=== PATIENT | female | born 1965 | race Hispanic/Latino ===

== ENCOUNTER 2017-01-12 19:19 | Emergency (ER) | payer MEDICAID ==
[2017-01-12 20:20] VITALS: BP 126/82
--- NOTE | 2017-01-12 21:22 | Emergency Department Report ---
Chief Complaint: Dizziness Stated Complaint: POSS SINUS INFECTION /VERTIGO Time Seen by Provider: 01/12/17 21:17 - HPI History of Present Illness: Patient admits to having sinus pressure, she also admits to having vertigo and a headache. She is now seeing dbl vision and having pressure in right ear. Denies chest pain, sob. Patient admits to having vertigo in the past. - ROS Review of Systems: All other systems unremarkable except documentation in HPI - Exam Vital Signs: Vital Signs 01/12/17 20:12 Temperature 98.1 F Pulse Rate 88 Respiratory 18 Rate Blood Pressure 126/82 O2 Sat by Pulse 98 Oximetry Physical Exam: General: Female well-developed and nourished, no apparent distress noted, patient is a well tear at time of exam she states due to vertigo Cardiovascular: Heart sounds present S1-S2, no murmur, gallop, edema or ectopy noted, 2+ pulses upper and lower extremities Respiratory: Chest symmetry with respirations, lungs clear to auscultate upper and lower lobes, respirations even and unlabored, no rales, rhonchi, crackles noted. Neuro: Alert and oriented 3, fluid speech, EOMs intact, normal facial sensation , strength exam 3/5 right upper and lower extremities patient states due to old CVA, left strength 5/5 upper and lower extremity, GCS equals 15. Psych: AxOx3, answers questions appropriately, mood full range, affect normal, normal speech and tone. MSE screening note: Focused history and physical exam performed. Due to findings the following was ordered: seen by provider, laboratory studies ordered, and to go to main ED to be seen by physician ED Medical Decision Making - Medical Decision Making seen by provider, laboratory studies ordered, and to go to main ED to be seen by physician ED Disposition for MSE Condition: Stable Referrals: PRIMARY CARE, [Primary Care Provider] - 3-5 Days
[2017-01-12 21:54] LABS: Basophils % (Auto) 0.7 % (0.0-1.8); Eosinophils % (Auto) 8.7 % (0.0-4.3); Mean Corpuscular HGB Conc 30 % (30-34); Platelet Count 305 K/mm3 (140-440); Red Blood Count 5.19 M/mm3 (3.65-5.03); Red Cell Distribution Width 17.9 % (13.2-15.2); White Blood Count 8.5 K/mm3 (4.5-11.0)
[2017-01-12 22:11] LABS: Anion Gap 19 mmol/L; BUN/Creatinine Ratio 21.25; Blood Urea Nitrogen 17 mg/dL (7-17); Calcium 8.6 mg/dL (8.4-10.2); Carbon Dioxide 24 mmol/L (22-30); Chloride 97.7 mmol/L (98-107); Glucose 110 mg/dL (65-100); Potassium 3.8 mmol/L (3.6-5.0); Sodium 137 mmol/L (137-145)
[2017-01-12 22:16] LABS: Hematocrit 32.8 % (30.3-42.9); Hemoglobin 9.9 gm/dl (10.1-14.3); Mean Corpuscular Hemoglobin 19 pg (28-32); Mean Corpuscular Volume 63 fl (79-97)
--- NOTE | 2017-01-14 14:59 | ED Elopement Review ---
ED Pt Elopement review - Results review Lab results: Laboratory Tests 01/12/17 01/12/17 21:44 21:44 WBC 8.5 RBC 5.19 H Hgb 9.9 L Hct 32.8 MCV 63 L MCH 19 L MCHC 30 RDW 17.9 H Plt Count 305 Lymph % (Auto) 33.1 [place] % (Auto) 9.1 H Eos % (Auto) 8.7 H Baso % (Auto) 0.7 Lymph # 2.8 [place] # 0.8 Eos # 0.7 H Baso # 0.1 Seg Neutrophils % 48.4 Seg Neutrophils # 4.1 Sodium 137 Potassium 3.8 Chloride 97.7 L Carbon Dioxide 24 Anion Gap 19 BUN 17 Creatinine 0.8 Estimated GFR > 60 BUN/Creatinine Ratio 21.25 Glucose 110 H Calcium 8.6 - Call Back decision Pt Call Back Decision: No action required
== END 2017-01-12 21:50 | disposition left against medical advice (07) ==
LOC: ED 19:19
DX: J34.89 Other specified disorders of nose and nasal sinuses (principal); R42 Dizziness and giddiness; R51 Headache; Z53.21 Procedure and treatment not carried out due to patient leaving prior to being seen by health care provider
CPT/HCPCS: 36415; 80048; 85025

== ENCOUNTER 2017-01-26 19:32 | Emergency (ER) | payer MEDICAID ==
--- NOTE | 2017-01-26 20:09 | Emergency Department Report ---
Chief Complaint: Abdominal Pain Stated Complaint: STOMACH/RIB/BACK PAIN Time Seen by Provider: 01/26/17 20:04 - HPI History of Present Illness: PT c/o stomach pain that radiates into her rectum x 2 days. PT states the pain also radiates to her back. PT states she had to have surgery on her colon twice. PT states this pain feels similar to the pain she had before she needed surgery. - ROS Review of Systems: + chills + nausea -fever - vomiting - Exam Vital Signs: Vital Signs 01/26/17 19:41 Temperature 97.8 F Pulse Rate 100 H Respiratory 20 Rate Blood Pressure 120/87 [Right] O2 Sat by Pulse 100 Oximetry Physical Exam: PT looks well, non toxic. PT's abd soft, + LUQ and LLQ tenderness MSE screening note: Focused history and physical exam performed. Due to findings the following was ordered: labs ED Disposition for MSE Condition: Stable Instructions: Abdominal Pain (ED)
[2017-01-26 20:59] LABS: Alanine Aminotransferase 13 units/L (7-56); Albumin 3.9 g/dL (3.9-5); Alkaline Phosphatase 113 units/L (35-129); Anion Gap 20 mmol/L; BUN/Creatinine Ratio 18.75; Bilirubin,Total 0.2 mg/dL (0.1-1.2); Blood Urea Nitrogen 15 mg/dL (7-17); Calcium 8.8 mg/dL (8.4-10.2); Carbon Dioxide 24 mmol/L (22-30); Glucose 126 mg/dL (65-100); Lipase 30 units/L (13-60); Sodium 141 mmol/L (137-145)
[2017-01-26 21:02] LABS: Basophils % (Auto) 0.6 % (0.0-1.8); Hematocrit 31.9 % (30.3-42.9); Mean Corpuscular HGB Conc 31 % (30-34); Platelet Count 394 K/mm3 (140-440); Red Blood Count 5.07 M/mm3 (3.65-5.03); Red Cell Distribution Width 17.6 % (13.2-15.2); White Blood Count 13.2 K/mm3 (4.5-11.0)
[2017-01-26 21:08] LABS: Mean Corpuscular Volume 63 fl (79-97)
[2017-01-26 21:09] LABS: Mean Corpuscular Hemoglobin 20 pg (28-32)
[2017-01-26 22:00] LABS: Bacteria,Urine 1+ /HPF (Negative); Bilirubin,Urine NEG (Negative); Blood,Urine NEG (Negative); Ketones,Urine TR mg/dL (Negative); Leukocyte Esterase,Urine NEG (Negative); Mucus,Urine 3+ /HPF; Nitrite,Urine NEG (Negative); Protein,Urine <15 mg/dL mg/dL (Negative)
[2017-01-26] MEDS ORDERED: NACL ONE (23:27)
[2017-01-26] MEDS ORDERED: LIDOCAINE VISCOUS 2% PO ONE (23:32)
[2017-01-26] MEDS ORDERED: ALUM-MAG HYDROX-SIMETH 200-200-20MG/5ML PO ONE (23:32)
--- NOTE | 2017-01-27 00:46 | Emergency Department Report ---
ED Abdominal Pain HPI - General Chief Complaint: Abdominal Pain Stated Complaint: STOMACH/RIB/BACK PAIN Time Seen by Provider: 01/26/17 20:04 Source: patient Mode of arrival: Ambulatory Limitations: No Limitations - History of Present Illness Initial Comments: 51-year-old female with a past medical history of chronic GERD, peptic ulcer disease, seizures, previous colon resection, hysterectomy, and appendectomy, diabetes, CVA, and hypertension presents to the hospital complaints of abdominal pain. The left upper quadrant intermittent 3 weeks. She states it is a grabbing sensation that is severe for about 1 minute and then radiates down to her left mid and lower abdomen. During the severe pain episodes she has shortness of breath, diaphoresis, and nausea. Pain worse with palpation. No change with by mouth intake. No alleviating factors reported. Patient states she thought the pain was secondary to gas but came in because it is not getting better. She's been compliant with a PPI. She does state she has a known history of some beer GERD and surgery was recommended but she declined. No reports of hematemesis, fever, melena, or hematochezia. He does not currently have a GI doctor. Severity scale (0 -10): 3 - Related Data Home Medications Medication Instructions Recorded Confirmed Last Taken PARoxetine [Paxil] 20 mg PO DAILY 04/08/16 04/08/16 Unknown Previous Rx's Medication Instructions Recorded Last Taken Type Omeprazole [PriLOSEC] 40 mg PO QDAY #30 capsule. 12/09/15 12/28/15 09:00 Rx Benzonatate [Tessalon Perles] 100 mg PO Q8HR #20 capsule 04/08/16 Unknown Rx Ibuprofen [Motrin] 800 mg PO Q8HR PRN #14 tablet 04/08/16 Unknown Rx Benzonatate [Tessalon Perles] 100 mg PO Q8HR PRN #30 capsule 04/14/16 Unknown Rx Albuterol Sulfate [Proair 90 mcg IH Q4HR PRN #2 aer.pow.ba 06/24/16 Unknown Rx Respiclick] Azithromycin [Zithromax] 250 mg PO QAM #1 packet 06/24/16 Unknown Rx Phenylephrine/Dm/Acetaminop/GG 20 ml PO Q4HR #180 ml 06/24/16 Unknown Rx [Mucinex Dksp-Awj-Drsykslcch Lq] predniSONE [Deltasone] 50 mg PO QDAY #5 tab 06/24/16 Unknown Rx Azithromycin [Zithromax TAB] 500 mg PO QDAY #5 tablet 09/04/16 Unknown Rx traMADol [Ultram] 50 mg PO Q6HR PRN #20 tablet 09/04/16 Unknown Rx Albuterol Sulfate [Ventolin HFA] 2 puff IH Q4H PRN #1 hfa.aer.ad 01/27/17 Unknown Rx Allergies Allergy/AdvReac Type Severity Reaction Status Date / Time codeine Allergy Rash Verified 12/29/15 08:44 levofloxacin [From Levaquin] Allergy Hives Verified 12/29/15 08:44 Penicillins Allergy Rash Verified 12/29/15 08:44 phenytoin sodium Allergy Rash Verified 12/29/15 08:44 [From Dilantin] phenytoin sodium extended Allergy Rash Verified 12/29/15 08:44 [From Dilantin] Sulfa (Sulfonamide Allergy Rash Verified 12/29/15 08:44 Antibiotics) ED Review of Systems ROS: Stated complaint: STOMACH/RIB/BACK PAIN Other details as noted in HPI Comment: All other systems reviewed and negative Other: Constitutional: No fevers chills Eyes: No eye pain visual changes ENT: No ear pain or throat pain Neck: Denies pain Respiratory: Denies cough wheezing shortness of breath Cardiovascular: Denies chest pain, palpitations, syncope GI: As per HPI : Denies dysuria Musculoskeletal: Denies back pain Skin: Denies rash, lesions, erythema Neurologic: Denies headache, numbness, weakness Psychiatric: Denies suicidal ideation, hallucinations ED Past Medical Hx - Past Medical History Previous Medical History?: Yes Hx Hypertension: Yes Hx CVA: Yes Hx Diabetes: Yes Hx GERD: Yes Hx Seizures: Yes Hx Psychiatric Treatment: Yes (depression) Hx Asthma: No Hx COPD: No Additional medical history: ulcers. vertigo - Surgical History Past Surgical History?: Yes Hx Appendectomy: Yes Additional Surgical History: colon resection. hysterectomy - Social History Smoking Status: Never Smoker Substance Use Type: None - Medications Home Medications: Home Medications Medication Instructions Recorded Confirmed Last Taken Type Omeprazole [PriLOSEC] 40 mg PO QDAY #30 capsule. 12/09/15 04/08/16 12/28/15 09 :00 Rx Benzonatate [Tessalon Perles] 100 mg PO Q8HR #20 capsule 04/08/16 Unknown Rx Ibuprofen [Motrin] 800 mg PO Q8HR PRN #14 tablet 04/08/16 Unknown Rx PARoxetine [Paxil] 20 mg PO DAILY 04/08/16 04/08/16 Unknown History Benzonatate [Tessalon Perles] 100 mg PO Q8HR PRN #30 capsule 04/14/16 Unknown Rx Albuterol Sulfate [Proair 90 mcg IH Q4HR PRN #2 aer.pow.ba 06/24/16 Unknown Rx Respiclick] Azithromycin [Zithromax] 250 mg PO QAM #1 packet 06/24/16 Unknown Rx Phenylephrine/Dm/Acetaminop/GG 20 ml PO Q4HR #180 ml 06/24/16 Unknown Rx [Mucinex Fjnq-Lif-Delnrxtohi Lq] predniSONE [Deltasone] 50 mg PO QDAY #5 tab 06/24/16 Unknown Rx Azithromycin [Zithromax TAB] 500 mg PO QDAY #5 tablet 09/04/16 Unknown Rx traMADol [Ultram] 50 mg PO Q6HR PRN #20 tablet 09/04/16 Unknown Rx Albuterol Sulfate [Ventolin HFA] 2 puff IH Q4H PRN #1 hfa.aer.ad 01/27/17 Unknown Rx ED Physical Exam - General Limitations: No Limitations - Other Other exam information: General: No limitations, patient is alert in no acute distress Head exam: Atraumatic, normocephalic Eyes exam: Normal appearance ENT: Moist mucous membrane, normal oropharynx Neck exam: Normal inspection, full range of motion, no meningismus nontender Respiratory exam: Clear to auscultation bilateral, no wheezes, rales, crackles Cardiovascular: Normal rate and rhythm, normal heart sounds Abdomen: Soft, nondistended, left upper quadrant tenderness with normal bowel sounds, no rebound, or guarding Extremity: Full range of motion normal inspection no deformity or tenderness or edema Back: Normal Inspection, full range of motion, no tenderness Neurologic: Alert, oriented x3, cranial nerves intact, no motor or sensory deficit Psychiatric: normal affect, normal mood Skin: Warm, dry, intact ED Course Vital Signs 01/26/17 19:41 Temperature 97.8 F Pulse Rate 100 H Respiratory 20 Rate Blood Pressure 120/87 [Right] O2 Sat by Pulse 100 Oximetry - Reevaluation(s) Reevaluation #1: 01/27/17 00:49 Patient declined all pain medications states she does not want to take any pain medication. She was offered Tylenol in a GI cocktail as well 01/27/17 00:49 ED Medical Decision Making - Lab Data Result diagrams: 01/26/17 20:28 01/26/17 20:28 Lab Results 01/26/17 01/26/17 01/26/17 Range/Units 20:28 20:28 20:28 WBC 13.2 H (4.5-11.0) K/mm3 RBC 5.07 H (3.65-5.03) M/mm3 Hgb 10.0 L (10.1-14.3) gm/dl Hct 31.9 (30.3-42.9) % MCV 63 L (79-97) fl MCH 20 L (28-32) pg MCHC 31 (30-34) % RDW 17.6 H (13.2-15.2) % Plt Count 394 (140-440) K/mm3 Lymph % (Auto) 22.5 (13.4-35.0) % [place] % (Auto) 6.8 (0.0-7.3) % Eos % (Auto) 2.0 (0.0-4.3) % Baso % (Auto) 0.6 (0.0-1.8) % Lymph # 3.0 (1.2-5.4) K/mm3 [place] # 0.9 H (0.0-0.8) K/mm3 Eos # 0.3 (0.0-0.4) K/mm3 Baso # 0.1 (0.0-0.1) K/mm3 Seg Neutrophils % 68.1 (40.0-70.0) % Seg Neutrophils # 9.0 H (1.8-7.7) K/mm3 Sodium 141 (137-145) mmol/L Potassium 4.0 (3.6-5.0) mmol/L Chloride 101.0 (98-107) mmol/L Carbon Dioxide 24 (22-30) mmol/L Anion Gap 20 mmol/L BUN 15 (7-17) mg/dL Creatinine 0.8 (0.7-1.2) mg/dL Estimated GFR > 60 ml/min BUN/Creatinine Ratio 18.75 % Glucose 126 H (65-100) mg/dL Calcium 8.8 (8.4-10.2) mg/dL Total Bilirubin 0.2 (0.1-1.2) mg/dL AST 15 (5-40) units/L ALT 13 (7-56) units/L Alkaline Phosphatase 113 (35-129) units/L Total Protein 8.0 (6.3-8.2) g/dL Albumin 3.9 (3.9-5) g/dL Albumin/Globulin Ratio 1.0 % Lipase 30 (13-60) units/L HCG, Qual Negative (Negative) Urine Color (Yellow) Urine Turbidity (Clear) Urine pH (5.0-7.0) Ur Specific [place] (1.003-1.030) Urine Protein (Negative) mg/dL Urine Glucose (UA) (Negative) mg/dL Urine Ketones (Negative) mg/dL Urine Blood (Negative) Urine Nitrite (Negative) Urine Bilirubin (Negative) Urine Urobilinogen (<2.0) mg/dL Ur Leukocyte Esterase (Negative) Urine WBC (Auto) (0.0-6.0) /HPF Urine RBC (Auto) (0.0-6.0) /HPF U Epithel Cells (Auto) (0-13.0) /HPF Urine Bacteria (Auto) (Negative) /HPF Urine Mucus /HPF / Range/Units 21:05 WBC (4.5-11.0) K/mm3 RBC (3.65-5.03) M/mm3 Hgb (10.1-14.3) gm/dl Hct (30.3-42.9) % MCV (79-97) fl MCH (28-32) pg MCHC (30-34) % RDW (13.2-15.2) % Plt Count (140-440) K/mm3 Lymph % (Auto) (13.4-35.0) % [place] % (Auto) (0.0-7.3) % Eos % (Auto) (0.0-4.3) % Baso % (Auto) (0.0-1.8) % Lymph # (1.2-5.4) K/mm3 [place] # (0.0-0.8) K/mm3 Eos # (0.0-0.4) K/mm3 Baso # (0.0-0.1) K/mm3 Seg Neutrophils % (40.0-70.0) % Seg Neutrophils # (1.8-7.7) K/mm3 Sodium (137-145) mmol/L Potassium (3.6-5.0) mmol/L Chloride (98-107) mmol/L Carbon Dioxide (22-30) mmol/L Anion Gap mmol/L BUN (7-17) mg/dL Creatinine (0.7-1.2) mg/dL Estimated GFR ml/min BUN/Creatinine Ratio % Glucose (65-100) mg/dL Calcium (8.4-10.2) mg/dL Total Bilirubin (0.1-1.2) mg/dL AST (5-40) units/L ALT (7-56) units/L Alkaline Phosphatase (35-129) units/L Total Protein (6.3-8.2) g/dL Albumin (3.9-5) g/dL Albumin/Globulin Ratio % Lipase (13-60) units/L HCG, Qual (Negative) Urine Color Yellow (Yellow) Urine Turbidity Clear (Clear) Urine pH 5.0 (5.0-7.0) Ur Specific [place] 1.028 (1.003-1.030) Urine Protein <15 mg/dl (Negative) mg/dL Urine Glucose (UA) Neg (Negative) mg/dL Urine Ketones Tr (Negative) mg/dL Urine Blood Neg (Negative) Urine Nitrite Neg (Negative) Urine Bilirubin Neg (Negative) Urine Urobilinogen 2.0 (<2.0) mg/dL Ur Leukocyte Esterase Neg (Negative) Urine WBC (Auto) 1.0 (0.0-6.0) /HPF Urine RBC (Auto) 3.0 (0.0-6.0) /HPF U Epithel Cells (Auto) 2.0 (0-13.0) /HPF Urine Bacteria (Auto) 1+ (Negative) /HPF Urine Mucus 3+ /HPF - Radiology Data Radiology results: report reviewed CT abd pelvis IV contrast: No acute findings. - Medical Decision Making Patient was discharged home. No acute medical condition at thsis time. Symptoms appear to be chronic ongoing. GI referral will be provided. Albuterol inhaler will be refilled per patient request patient declines any meds for pain she is already taking a PPI. - Differential Diagnosis gastritis, PUD, [place], GERD, esophageal spasm Critical Care Time: No Critical care attestation.: If time is entered above; I have spent that time in minutes in the direct care of this critically ill patient, excluding procedure time. ED Disposition Clinical Impression: LUQ abdominal pain, GERD (gastroesophageal reflux disease) Disposition: DISCHARGED TO HOME OR SELFCARE Is pt being admited?: No Does the pt Need Aspirin: No Condition: Stable Instructions: Abdominal Pain (ED), Gastroesophageal Reflux Disease (ED) Additional Instructions: Continue your current medication. Follow up with a GI doctor provided. Return if symptoms worsen. Prescriptions: Albuterol Sulfate [Ventolin HFA] 2 puff IH Q4H PRN #1 hfa.aer.ad PRN Reason: Shortness Of Breath Referrals: PRIMARY CAREMD [Primary Care Provider] - 3-5 Days IWONA JULES MD [Staff Physician] - 3-5 Days Time of Disposition: 01:53
[2017-01-27] MEDS ORDERED: TYLENOL PO ONE (00:59)
--- NOTE | 2017-01-27 01:47 | Cat Scan Report ---
FINAL REPORT PROCEDURE: CT ABDOMEN PELVIS W CON TECHNIQUE: Computerized axial tomography of the abdomen and pelvis was performed after the IV injection of iodinated nonionic contrast. Oral contrast was not given. HISTORY: Abdominal pain. COMPARISON: Prior abdomen and pelvic CT scan of December 08, 2015 FINDINGS: Visualized lower thorax: There is mild atelectasis and or fibrotic change in both lung bases.. Liver: Normal size and attenuation. Spleen: Normal size and attenuation. Gallbladder and biliary system: Normal. Pancreas: Normal. Adrenals: Normal. Kidneys: Normal. GI tract: Bowel appears unremarkable when considering lack of oral contrast. However the appendix cannot be identified with certainty.. Lymph nodes and mesentery: Normal. Vasculature: Normal. Bladder: Normal. Reproductive organs: There has been a hysterectomy.. Peritoneum: No free fluid. Musculoskeletal structures: No significant abnormality. Other: None. IMPRESSION: 1. There is no CT evidence of distinct acute finding. 2. However the appendix cannot be identified with certainty. There is no CT evidence of inflammation in the right lower quadrant. However because the appendix cannot be identified, if there is strong clinical evidence to suggest appendicitis then this diagnosis should still be considered.
[2017-01-27 01:58] VITALS: BP 133/75
== END 2017-01-27 01:58 | disposition home or self-care (01) ==
LOC: ED 19:32
DX: R10.12 Left upper quadrant pain (principal); K21.9 Gastro-esophageal reflux disease without esophagitis; K27.9 Peptic ulcer, site unspecified, unspecified as acute or chronic, without hemorrhage or perforation; R56.9 Unspecified convulsions; E11.9 Type 2 diabetes mellitus without complications; I10 Essential (primary) hypertension; Z86.73 Personal history of transient ischemic attack (TIA), and cerebral infarction without residual deficits; Z90.49 Acquired absence of other specified parts of digestive tract; Z88.0 Allergy status to penicillin; Z88.2 Allergy status to sulfonamides; Z88.8 Allergy status to other drugs, medicaments and biological substances; Z88.1 Allergy status to other antibiotic agents; Z90.710 Acquired absence of both cervix and uterus
CPT/HCPCS: 36415; 74177; 80053; 81001; 83690; 84703; 85025; 93005; 93010; 99284; Q9967

== ENCOUNTER 2017-07-13 18:07 | Emergency (ER) | payer MEDICAID ==
[2017-07-13 18:51] LABS: Basophils % (Auto) 0.5 % (0.0-1.8); Hematocrit 32.1 % (30.3-42.9); Hemoglobin 9.9 gm/dl (10.1-14.3); Mean Corpuscular HGB Conc 31 % (30-34); Platelet Count 360 K/mm3 (140-440); Red Blood Count 5.12 M/mm3 (3.65-5.03); White Blood Count 13.3 K/mm3 (4.5-11.0)
[2017-07-13 18:55] LABS: Mean Corpuscular Hemoglobin 19 pg (28-32); Mean Corpuscular Volume 63 fl (79-97)
[2017-07-13 19:00] LABS: Bacteria,Urine 1+ /HPF (Negative); Bilirubin,Urine NEG (Negative); Blood,Urine NEG (Negative); Ketones,Urine NEG (Negative); Leukocyte Esterase,Urine TR (Negative); Mucus,Urine 2+ /HPF; Nitrite,Urine NEG (Negative); Protein,Urine <15 mg/dL mg/dL (Negative); Urobilinogen,Urine < 2.0 mg/dL (<2.0)
[2017-07-13 19:20] LABS: Alanine Aminotransferase 10 units/L (7-56); Albumin 4.2 g/dL (3.9-5); Albumin/Globulin Ratio 1.1 %; Alkaline Phosphatase 108 units/L (35-129); Anion Gap 19 mmol/L; Blood Urea Nitrogen 18 mg/dL (7-17); Calcium 8.8 mg/dL (8.4-10.2); Carbon Dioxide 25 mmol/L (22-30); Chloride 102.8 mmol/L (98-107); Glucose 97 mg/dL (65-100); Lipase 29 units/L (13-60); Potassium 4.3 mmol/L (3.6-5.0); Sodium 142 mmol/L (137-145)
[2017-07-14] MEDS ORDERED: TESSALON PERLES PO ONE (02:41)
--- NOTE | 2017-07-14 02:46 | Emergency Department Report ---
HPI - General Chief Complaint: Abdominal Pain Time Seen by Provider: 07/14/17 02:27 - HPI HPI: Room 4 The patient is a 52-year-old female presenting with a chief complaint of cough. The patient states she came to the emergency department because she suffered from a cough for the past 2 days productive of yellowish-green sputum. The patient states the cough causes her to be nauseous. The patient states she also noticed hesitancy when urinating. The patient says yesterday she was attacked by a stray cat and she was either bitten or scratched her right upper extremity. Patient denies any history of fever Location: [see above] Duration: [see above] Quality: Cough Severity: Moderate Modifying factors: [see above] Context: [see above] Mode of transportation: Unknown ED Past Medical Hx - Past Medical History Previous Medical History?: Yes Hx Hypertension: Yes Hx CVA: Yes Hx Diabetes: Yes Hx GERD: Yes Hx Seizures: Yes Hx Psychiatric Treatment: Yes (depression) Additional medical history: h/o ulcers. vertigo - Surgical History Past Surgical History?: Yes Hx Appendectomy: Yes Additional Surgical History: colon resection. hysterectomy - Family History Family history: no significant - Social History Smoking Status: Current Some Day Smoker Substance Use Type: Prescribed - Medications Home Medications: Home Medications Medication Instructions Recorded Confirmed Last Taken Type Omeprazole [PriLOSEC] 40 mg PO QDAY #30 capsule. 12/09/15 04/08/16 12/28/15 09 :00 Rx Benzonatate [Tessalon Perles] 100 mg PO Q8HR #20 capsule 04/08/16 Unknown Rx Ibuprofen [Motrin] 800 mg PO Q8HR PRN #14 tablet 04/08/16 Unknown Rx PARoxetine [Paxil] 20 mg PO DAILY 04/08/16 04/08/16 Unknown History Benzonatate [Tessalon Perles] 100 mg PO Q8HR PRN #30 capsule 04/14/16 Unknown Rx Albuterol Sulfate [Proair 90 mcg IH Q4HR PRN #2 aer.pow.ba 06/24/16 Unknown Rx Respiclick] Azithromycin [Zithromax] 250 mg PO QAM #1 packet 06/24/16 Unknown Rx Phenylephrine/Dm/Acetaminop/GG 20 ml PO Q4HR #180 ml 06/24/16 Unknown Rx [Mucinex Krav-Ydg-Pcjqwvajto Lq] predniSONE [Deltasone] 50 mg PO QDAY #5 tab 06/24/16 Unknown Rx Azithromycin [Zithromax TAB] 500 mg PO QDAY #5 tablet 09/04/16 Unknown Rx traMADol [Ultram] 50 mg PO Q6HR PRN #20 tablet 09/04/16 Unknown Rx Albuterol Sulfate [Ventolin HFA] 2 puff IH Q4H PRN #1 hfa.aer.ad 01/27/17 Unknown Rx ALBUTEROL Inhaler [Proair] 2 puff IH QID PRN #1 inhalation 07/14/17 Unknown Rx Azithromycin [Zithromax Z-FREDDY] 0 mg PO DAILY #6 tab 07/14/17 Unknown Rx Benzonatate [Tessalon Perles] 100 mg PO Q8HR PRN #30 capsule 07/14/17 Unknown Rx ED Review of Systems ROS: Stated complaint: ABD PAIN/HEADACHE/SCRATCHES RT ARM Other details as noted in HPI Comment: All other systems reviewed and negative Constitutional: denies: chills, fever Eyes: denies: eye pain, eye discharge, vision change ENT: denies: ear pain, throat pain Respiratory: cough Cardiovascular: denies: chest pain, palpitations Endocrine: no symptoms reported Gastrointestinal: denies: abdominal pain, nausea, diarrhea Genitourinary: other (hesitancy) Musculoskeletal: denies: back pain, joint swelling, arthralgia Skin: denies: rash, lesions Neurological: denies: headache, weakness, paresthesias Psychiatric: denies: anxiety, depression Hematological/Lymphatic: denies: easy bleeding, easy bruising Physical Exam - Physical Exam Vital Signs: Vital Signs 07/13/17 07/14/17 18:18 00:03 Temperature 97.6 F 98.6 F Pulse Rate 96 H 76 Respiratory 18 18 Rate Blood Pressure 123/96 136/99 O2 Sat by Pulse 99 98 Oximetry Physical Exam: GENERAL: The patient is well-developed well-nourished female lying on stretcher not appearing to be in acute distress. [] HEENT: Normocephalic. Atraumatic. Extraocular motions are intact. Patient has moist mucous membranes. NECK: Supple. Trachea midline CHEST/LUNGS: Clear to auscultation. There is no respiratory distress noted. Occasional cough HEART/CARDIOVASCULAR: Regular. There is no tachycardia. There is no gallop rub or murmur. ABDOMEN: Abdomen is soft, nontender. Patient has normal bowel sounds. There is no abdominal distention. SKIN: There is evidence of subacute scratches to the right anterior forearm and wrist. There is a scab present over the lesions. Pale erythema over the wrist injury. There is no lymphangitic streaking. There is no diaphoresis. NEURO: The patient is awake, alert, and oriented. The patient is cooperative. The patient has normal speech MUSCULOSKELETAL: There is no evidence of acute injury. ED Course Vital Signs 07/13/17 07/14/17 18:18 00:03 Temperature 97.6 F 98.6 F Pulse Rate 96 H 76 Respiratory 18 18 Rate Blood Pressure 123/96 136/99 O2 Sat by Pulse 99 98 Oximetry ED Medical Decision Making - Lab Data Result diagrams: 07/13/17 18:30 07/13/17 18:30 Laboratory Tests 07/13/17 07/13/17 07/13/17 18:30 18:30 Unknown WBC 13.3 H RBC 5.12 H Hgb 9.9 L Hct 32.1 MCV 63 L MCH 19 L MCHC 31 RDW 18.0 H Plt Count 360 Lymph % (Auto) 23.8 [place] % (Auto) 7.8 H Eos % (Auto) 1.0 Baso % (Auto) 0.5 Lymph # 3.2 [place] # 1.0 H Eos # 0.1 Baso # 0.1 Seg Neutrophils % 66.9 Seg Neutrophils # 8.9 H Sodium 142 Potassium 4.3 Chloride 102.8 Carbon Dioxide 25 Anion Gap 19 BUN 18 H Creatinine 0.8 Estimated GFR > 60 BUN/Creatinine Ratio 22.50 Glucose 97 Calcium 8.8 Total Bilirubin 0.20 AST 15 ALT 10 Alkaline Phosphatase 108 Total Protein 8.0 Albumin 4.2 Albumin/Globulin Ratio 1.1 Lipase 29 Urine Color Yellow Urine Turbidity Clear Urine pH 5.0 Ur Specific [place] 1.027 Urine Protein <15 mg/dl Urine Glucose (UA) Neg Urine Ketones Neg Urine Blood Neg Urine Nitrite Neg Urine Bilirubin Neg Urine Urobilinogen < 2.0 Ur Leukocyte Esterase Tr Urine WBC (Auto) 2.0 Urine RBC (Auto) 5.0 U Epithel Cells (Auto) 1.0 Urine Bacteria (Auto) 1+ Urine Mucus 2+ - Radiology Data Radiology results: image reviewed (chest x-ray) interpreted by me: Chest x-ray-no focal infiltrates, no pneumothorax - Differential Diagnosis bronchitis, pneumonia, cat Scratch disease, UTI Critical care attestation.: If time is entered above; I have spent that time in minutes in the direct care of this critically ill patient, excluding procedure time. ED Disposition Clinical Impression: Acute bronchitis, Cat scratch Disposition: DC-01 TO HOME OR SELFCARE Is pt being admited?: No Does the pt Need Aspirin: No Condition: Stable Instructions: Acute Bronchitis (ED), Cat Scratch Disease (ED), Abdominal Pain ( ED) Additional Instructions: Return to the emergency department immediately should you develop worsening symptoms, fever, inability to tolerate food or liquid or any other concerns. Prescriptions: ALBUTEROL Inhaler [Proair] 2 puff IH QID PRN #1 inhalation PRN Reason: Shortness Of Breath Azithromycin [Zithromax Z-FREDDY] 0 mg PO DAILY #6 tab Benzonatate [Tessalon Perles] 100 mg PO Q8HR PRN #30 capsule PRN Reason: Cough Referrals: PRIMARY CAREMD [Primary Care Provider] - 3-5 Days ALEX ROTHMAN MD [Staff Physician] - 3-5 Days Time of Disposition: 03:15
[2017-07-14 03:27] VITALS: BP 138/83
--- NOTE | 2017-07-14 07:37 | XRay Report ---
CHEST 2 VIEWS INDICATION: Cough. COMPARISON: 06/24/2016. FINDINGS: PA and lateral chest radiographs demonstrate normal cardiomediastinal silhouette. Clear lungs. Demineralized bones with mild thoracic spine degenerative spurring. EKG leads. CONCLUSION: No acute disease in the chest. Thank you for the opportunity to participate in this patient's care.
== END 2017-07-14 03:27 | disposition home or self-care (01) ==
LOC: ED 18:07
DX: J20.9 Acute bronchitis, unspecified (principal); S40.811A Abrasion of right upper arm, initial encounter; I10 Essential (primary) hypertension; E11.9 Type 2 diabetes mellitus without complications; K21.9 Gastro-esophageal reflux disease without esophagitis; F17.200 Nicotine dependence, unspecified, uncomplicated; W55.03XA Scratched by cat, initial encounter; Y93.9 Activity, unspecified; Y92.9 Unspecified place or not applicable; Y99.9 Unspecified external cause status
CPT/HCPCS: 36415; 71020; 80053; 81001; 83690; 85025

== ENCOUNTER 2017-10-13 19:53 | Emergency (ER) | payer MEDICAID ==
--- NOTE | 2017-10-13 22:16 | Cat Scan Report ---
FINAL REPORT PROCEDURE: CT HEAD/BRAIN WO CON TECHNIQUE: Computerized tomography of the head was performed without contrast material. HISTORY: head injury, LOC, facial numbness COMPARISON: No prior studies are available for comparison. FINDINGS: Brain: Brain density appears normal. No evidence of intracranial hemorrhage. No parenchymal hemorrhage, mass lesions or mass effect are seen. No abnormal extraxial fluid collects or masses are seen. Ventricles: Ventricles are normal size and are midline. Bone Windows: No evidence of skull fracture. Paranasal sinuses: Small nodular density measuring 7.6 millimeter seen anteriorly in the right maxillary sinus suggesting a small polyp or mucous retention cyst. There is minimal mucosal thickening anteriorly in the left maxillary sinus. Paranasal sinuses otherwise appear clear. Mastoid air cells: Clear IMPRESSION: Negative unenhanced CT scan of the brain. No evidence of intracranial hemorrhage or skull fracture. Minimal paranasal sinus disease as described.
[2017-10-13 23:39] LABS: Bilirubin,Urine NEG (Negative); Blood,Urine NEG (Negative); Ketones,Urine TR mg/dL (Negative); Leukocyte Esterase,Urine NEG (Negative); Mucus,Urine 2+ /HPF; Nitrite,Urine NEG (Negative); Protein,Urine <15 mg/dL mg/dL (Negative); Urobilinogen,Urine < 2.0 mg/dL (<2.0)
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
[2017-10-14 06:43] VITALS: BP 131/78
== END 2017-10-14 00:23 | disposition home or self-care (01) ==
LOC: ED 19:53
DX: S06.0X1A Concussion with loss of consciousness of 30 minutes or less, initial encounter (principal); R30.0 Dysuria; I10 Essential (primary) hypertension; E11.9 Type 2 diabetes mellitus without complications; K21.9 Gastro-esophageal reflux disease without esophagitis; W22.8XXA Striking against or struck by other objects, initial encounter; Y93.89 Activity, other specified; Y92.89 Other specified places as the place of occurrence of the external cause; Y99.8 Other external cause status
CPT/HCPCS: 70450; 81001

== ENCOUNTER 2018-03-05 14:44 | Emergency (ER) | payer MEDICAID ==
[2018-03-05] MEDS ORDERED: DELTASONE PO ONE (15:59)
--- NOTE | 2018-03-05 16:01 | Emergency Department Report ---
Minor Respiratory - HPI Chief Complaint: Upper Respiratory Infection Stated Complaint: COUGH Time Seen by Provider: 03/05/18 15:38 Pain Location: Facial Severity: moderate Minor Respiratory: Yes Able to Tolerate Fluids, Yes Cough, No Rhinorrhea, No Sore Throat, No Ear Pain, No Sick Contacts, No Hemoptysis, No Chest Pain, No Shortness of Breath, No Fever Other History: This 2-year-old female presents ED complaining of worsening cough for the past week. Patient states her mother is a smoker in the house and is like this is making her cough forcefully patient states cough is nonproductive with yellowish sputum. She denies fever, chills, vomiting, chest pain ,nausea or shortness of breath. States that sometimes night she mild shortness of breath ED Review of Systems ROS: Stated complaint: COUGH Other details as noted in HPI Constitutional: denies: chills, fever Eyes: denies: eye pain, eye discharge, vision change ENT: denies: ear pain, throat pain Respiratory: cough. denies: shortness of breath, wheezing Cardiovascular: denies: chest pain, palpitations Endocrine: no symptoms reported Gastrointestinal: denies: abdominal pain, nausea, diarrhea Genitourinary: denies: urgency, dysuria, discharge Musculoskeletal: denies: back pain, joint swelling, arthralgia Skin: denies: rash, lesions Neurological: denies: headache, weakness, paresthesias Psychiatric: denies: anxiety, depression Hematological/Lymphatic: denies: easy bleeding, easy bruising ED Past Medical Hx - Past Medical History Hx Hypertension: Yes Hx CVA: Yes Hx Diabetes: Yes Hx GERD: Yes Hx Seizures: Yes Hx Psychiatric Treatment: Yes (depression) Hx Asthma: No Hx COPD: No Additional medical history: h/o ulcers. vertigo - Surgical History Hx Appendectomy: Yes Additional Surgical History: colon resection. hysterectomy - Social History Smoking Status: Former Smoker Substance Use Type: None - Medications Home Medications: Home Medications Medication Instructions Recorded Confirmed Last Taken Type Omeprazole [PriLOSEC] 40 mg PO QDAY #30 capsule. 12/09/15 04/08/16 12/28/15 09 :00 Rx Benzonatate [Tessalon Perles] 100 mg PO Q8HR #20 capsule 04/08/16 Unknown Rx Ibuprofen [Motrin] 800 mg PO Q8HR PRN #14 tablet 04/08/16 Unknown Rx PARoxetine [Paxil] 20 mg PO DAILY 04/08/16 04/08/16 Unknown History Benzonatate [Tessalon Perles] 100 mg PO Q8HR PRN #30 capsule 04/14/16 Unknown Rx Albuterol Sulfate [Proair 90 mcg IH Q4HR PRN #2 aer.pow.ba 06/24/16 Unknown Rx Respiclick] Phenylephrine/Dm/Acetaminop/GG 20 ml PO Q4HR #180 ml 06/24/16 Unknown Rx [Mucinex Xksv-Vge-Irbwylhorh Lq] predniSONE [Deltasone] 50 mg PO QDAY #5 tab 06/24/16 Unknown Rx Azithromycin [Zithromax TAB] 500 mg PO QDAY #5 tablet 09/04/16 Unknown Rx traMADol [Ultram] 50 mg PO Q6HR PRN #20 tablet 09/04/16 Unknown Rx ALBUTEROL Inhaler [Proair] 2 puff IH QID PRN #1 inhalation 07/14/17 Unknown Rx Azithromycin [Zithromax Z-FREDDY] 0 mg PO DAILY #6 tab 07/14/17 Unknown Rx Fluconazole [Diflucan TAB] 150 mg PO ONCE #1 tablet 07/14/17 Unknown Rx Albuterol Sulfate [Ventolin HFA] 2 puff IH Q4H PRN #1 hfa.aer.ad 03/05/18 Unknown Rx Azithromycin [Zithromax Z-FREDDY] 250 mg PO QAM #1 packet 03/05/18 Unknown Rx Benzonatate [Tessalon Perles] 100 mg PO Q8HR PRN #30 capsule 03/05/18 Unknown Rx diphenhydrAMINE [Benadryl CAP] 25 mg PO QHS PRN #24 capsule 03/05/18 Unknown Rx Minor Respiratory Exam - Exam General: Vital signs noted. No distress. Alert and acting appropriately. HEENT: Yes Moist Mucous Membranes, No Pharyngeal Erythema, No Pharyngeal Exudates, No Rhinorrhea, No Conjuctival Injection, No Frontal Tenderness, No Maxillary Tenderness Ear: Neither TM Bulge, Neither TM Erythema, Neither EAC Pain, Neither EAC Discharge Neck: Yes Supple, No Adenopathy Lungs: Yes Good Air Exchange, No Wheezes, No Ronchi, No Stridor, No Cough, No Labored Respirations, No Retractions, No Use of Accessory Muscles, No Other Abnormal Lung Sounds Heart: Yes Regular, No Murmur Abdomen: Yes Normal Bowel Sounds, No Tenderness, No Peritoneal Signs Skin: No Rash, No Edema Neurologic: Alert and oriented, no deficits. Musculoskeletal: Unremarkable. ED Course Vital Signs 03/05/18 14:53 Temperature 98.2 F Pulse Rate 100 H Respiratory 18 Rate Blood Pressure 140/98 O2 Sat by Pulse 96 Oximetry ED Medical Decision Making - Radiology Data Radiology results: report reviewed, image reviewed FINAL REPORT EXAM: XR CHEST ROUTINE 2V HISTORY: cough/cp TECHNIQUE: PA and lateral views the chest were submitted. Comparison made study of 12/08/2015. FINDINGS: The heart size and mediastinum appear normal. The lungs are clear. Pleural fluid is not seen. The bones soft tissues reveal mild disc degeneration in the dorsal spine. IMPRESSION: No active chest disease. Transcribed By: RB Dictated By: LULU VARGAS MD Electronically Authenticated By: LULU VARGAS MD Signed Date/Time: 03/05/18 5549 - Medical Decision Making 52-year-old female presents with upper respiratory infection ED course: Patient received medication in the ED, x-ray. Chest x-ray shows no acute findings Discussed this with the patient. I discussed the patient will follow up with the primary care physician in 3-5 days vital signs are normal patient is in no respiratory distress. Critical care attestation.: If time is entered above; I have spent that time in minutes in the direct care of this critically ill patient, excluding procedure time. ED Disposition Clinical Impression: URI with cough and congestion Disposition: DC-01 TO HOME OR SELFCARE Is pt being admited?: No Does the pt Need Aspirin: No Condition: Stable Instructions: Upper Respiratory Infection (ED), Viral Syndrome (ED), Sinusitis (ED) Additional Instructions: Make sure to follow up with the primary care physician as discussed. Take all your medications as you've been prescribed. If you have any worsening symptoms or develop new symptoms please return to ED immediately. Prescriptions: diphenhydrAMINE [Benadryl CAP] 25 mg PO QHS PRN #24 capsule PRN Reason: Allergic Reaction Albuterol Sulfate [Ventolin HFA] 2 puff IH Q4H PRN #1 hfa.aer.ad PRN Reason: Shortness Of Breath Azithromycin [Zithromax Z-FREDDY] 250 mg PO QAM #1 packet Benzonatate [Tessalon Perles] 100 mg PO Q8HR PRN #30 capsule PRN Reason: Cough Referrals: PRIMARY CARE, [Primary Care Provider] - 3-5 Days [facility] [Outside] - 3-5 Days [facility] [Outside] - 3-5 Days [facility] [Outside] - 3-5 Days Forms: Accompanied Note, Work/School Release Form(ED) Time of Disposition: 17:12
--- NOTE | 2018-03-05 16:24 | XRay Report ---
FINAL REPORT EXAM: XR CHEST ROUTINE 2V HISTORY: cough/cp TECHNIQUE: PA and lateral views the chest were submitted. Comparison made study of 12/08/2015. FINDINGS: The heart size and mediastinum appear normal. The lungs are clear. Pleural fluid is not seen. The bones soft tissues reveal mild disc degeneration in the dorsal spine. IMPRESSION: No active chest disease.
[2018-03-05] MEDS ORDERED: ROBITUSSIN PO ONE (16:30)
[2018-03-05 17:39] VITALS: BP 135/74
== END 2018-03-05 17:37 | disposition home or self-care (01) ==
LOC: ED 14:44
DX: J06.9 Acute upper respiratory infection, unspecified (principal); R05 Cough; R09.81 Nasal congestion; Z86.73 Personal history of transient ischemic attack (TIA), and cerebral infarction without residual deficits; E11.9 Type 2 diabetes mellitus without complications; K21.9 Gastro-esophageal reflux disease without esophagitis; R56.9 Unspecified convulsions; I10 Essential (primary) hypertension; F32.9 Major depressive disorder, single episode, unspecified; Z87.891 Personal history of nicotine dependence
CPT/HCPCS: 71046; 99283; J7512

== ENCOUNTER 2018-03-26 20:49 | Emergency (ER) | payer MEDICAID ==
[2018-03-26 20:55] VITALS: BP 142/101
--- NOTE | 2018-03-26 21:35 | Emergency Department Report ---
- General Chief Complaint: Upper Respiratory Infection Stated Complaint: COUGH Time Seen by Provider: 03/26/18 21:16 Source: patient Mode of arrival: Ambulatory Limitations: No Limitations - History of Present Illness Initial Comments: Was treated for similar symptoms last month. Given azithromycin. She requests albuterol solution. She has nebulizer machine at home.. She also has upper abdominal pain when she coughs. MD Complaint: cough, nasal congestion -: Gradual, week(s) (4) Severity: mild Consistency: constant Improves With: nothing Worsens With: nothing Context: other (patient lives with her mother who is a smoker.) - Related Data Home Medications Medication Instructions Recorded Confirmed Last Taken PARoxetine [Paxil] 20 mg PO DAILY 04/08/16 04/08/16 Unknown Previous Rx's Medication Instructions Recorded Last Taken Type Omeprazole [PriLOSEC] 40 mg PO QDAY #30 capsule. 12/09/15 12/28/15 09:00 Rx Benzonatate [Tessalon Perles] 100 mg PO Q8HR #20 capsule 04/08/16 Unknown Rx Ibuprofen [Motrin] 800 mg PO Q8HR PRN #14 tablet 04/08/16 Unknown Rx Benzonatate [Tessalon Perles] 100 mg PO Q8HR PRN #30 capsule 04/14/16 Unknown Rx Albuterol Sulfate [Proair 90 mcg IH Q4HR PRN #2 aer.pow.ba 06/24/16 Unknown Rx Respiclick] Phenylephrine/Dm/Acetaminop/GG 20 ml PO Q4HR #180 ml 06/24/16 Unknown Rx [Mucinex Hbkw-Qcy-Mjcfnntbna Lq] predniSONE [Deltasone] 50 mg PO QDAY #5 tab 06/24/16 Unknown Rx Azithromycin [Zithromax TAB] 500 mg PO QDAY #5 tablet 09/04/16 Unknown Rx traMADol [Ultram] 50 mg PO Q6HR PRN #20 tablet 09/04/16 Unknown Rx ALBUTEROL Inhaler [Proair] 2 puff IH QID PRN #1 inhalation 07/14/17 Unknown Rx Azithromycin [Zithromax Z-FREDDY] 0 mg PO DAILY #6 tab 07/14/17 Unknown Rx Fluconazole [Diflucan TAB] 150 mg PO ONCE #1 tablet 07/14/17 Unknown Rx Albuterol Sulfate [Ventolin HFA] 2 puff IH Q4H PRN #1 hfa.aer.ad 03/05/18 Unknown Rx Azithromycin [Zithromax Z-FREDDY] 250 mg PO QAM #1 packet 03/05/18 Unknown Rx Benzonatate [Tessalon Perles] 100 mg PO Q8HR PRN #30 capsule 03/05/18 Unknown Rx diphenhydrAMINE [Benadryl CAP] 25 mg PO QHS PRN #24 capsule 03/05/18 Unknown Rx ALBUTEROL NEB's [Proventil 0.083% 2.5 mg IH TID PRN #90 neb 03/26/18 Unknown Rx NEBS] Loratadine 10 mg PO DAILY 30 Days #30 capsule 03/26/18 Unknown Rx predniSONE [Deltasone] 3 tab PO QDAY 5 Days #15 tab 03/26/18 Unknown Rx Allergies Allergy/AdvReac Type Severity Reaction Status Date / Time codeine Allergy Rash Verified 10/13/17 21:24 levofloxacin [From Levaquin] Allergy Hives Verified 10/13/17 21:24 Penicillins Allergy Rash Verified 10/13/17 21:24 phenytoin sodium Allergy Rash Verified 10/13/17 21:24 [From Dilantin] phenytoin sodium extended Allergy Rash Verified 10/13/17 21:24 [From Dilantin] Sulfa (Sulfonamide Allergy Rash Verified 10/13/17 21:24 Antibiotics) ED Review of Systems ROS: Stated complaint: COUGH Other details as noted in HPI Comment: All other systems reviewed and negative Constitutional: denies: fever, malaise Respiratory: cough Cardiovascular: denies: chest pain ED Past Medical Hx - Past Medical History Hx Hypertension: Yes Hx CVA: Yes Hx Diabetes: Yes Hx GERD: Yes Hx Seizures: Yes Hx Psychiatric Treatment: Yes (depression) Hx Asthma: No Hx COPD: No Additional medical history: h/o ulcers. vertigo - Surgical History Hx Appendectomy: Yes Additional Surgical History: colon resection. hysterectomy - Social History Smoking Status: Never Smoker Substance Use Type: None - Medications Home Medications: Home Medications Medication Instructions Recorded Confirmed Last Taken Type Omeprazole [PriLOSEC] 40 mg PO QDAY #30 capsule. 12/09/15 04/08/16 12/28/15 09 :00 Rx Benzonatate [Tessalon Perles] 100 mg PO Q8HR #20 capsule 04/08/16 Unknown Rx Ibuprofen [Motrin] 800 mg PO Q8HR PRN #14 tablet 04/08/16 Unknown Rx PARoxetine [Paxil] 20 mg PO DAILY 04/08/16 04/08/16 Unknown History Benzonatate [Tessalon Perles] 100 mg PO Q8HR PRN #30 capsule 04/14/16 Unknown Rx Albuterol Sulfate [Proair 90 mcg IH Q4HR PRN #2 aer.pow.ba 06/24/16 Unknown Rx Respiclick] Phenylephrine/Dm/Acetaminop/GG 20 ml PO Q4HR #180 ml 06/24/16 Unknown Rx [Mucinex Ofsb-Ifo-Dfcycktilx Lq] predniSONE [Deltasone] 50 mg PO QDAY #5 tab 06/24/16 Unknown Rx Azithromycin [Zithromax TAB] 500 mg PO QDAY #5 tablet 09/04/16 Unknown Rx traMADol [Ultram] 50 mg PO Q6HR PRN #20 tablet 09/04/16 Unknown Rx ALBUTEROL Inhaler [Proair] 2 puff IH QID PRN #1 inhalation 07/14/17 Unknown Rx Azithromycin [Zithromax Z-FREDDY] 0 mg PO DAILY #6 tab 07/14/17 Unknown Rx Fluconazole [Diflucan TAB] 150 mg PO ONCE #1 tablet 07/14/17 Unknown Rx Albuterol Sulfate [Ventolin HFA] 2 puff IH Q4H PRN #1 hfa.aer.ad 03/05/18 Unknown Rx Azithromycin [Zithromax Z-FREDDY] 250 mg PO QAM #1 packet 03/05/18 Unknown Rx Benzonatate [Tessalon Perles] 100 mg PO Q8HR PRN #30 capsule 03/05/18 Unknown Rx diphenhydrAMINE [Benadryl CAP] 25 mg PO QHS PRN #24 capsule 03/05/18 Unknown Rx ALBUTEROL NEB's [Proventil 0.083% 2.5 mg IH TID PRN #90 neb 03/26/18 Unknown Rx NEBS] Loratadine 10 mg PO DAILY 30 Days #30 capsule 03/26/18 Unknown Rx predniSONE [Deltasone] 3 tab PO QDAY 5 Days #15 tab 03/26/18 Unknown Rx ED Physical Exam - General Limitations: No Limitations General appearance: alert, in no apparent distress, other (pleasant well- appearing comfortable) - Head Head exam: Present: atraumatic, normocephalic - Eye Eye exam: Present: normal appearance - ENT ENT exam: Present: mucous membranes moist, other (mucus in the oropharynx without exudates) - Neck Neck exam: Present: normal inspection. Absent: tenderness, meningismus - Respiratory Respiratory exam: Present: normal lung sounds bilaterally. Absent: respiratory distress, wheezes, rales, rhonchi - Cardiovascular Cardiovascular Exam: Present: regular rate, normal rhythm, normal heart sounds. Absent: bradycardia, tachycardia, systolic murmur, diastolic murmur, rubs, gallop - GI/Abdominal GI/Abdominal exam: Present: soft, normal bowel sounds. Absent: distended, guarding, rebound - Extremities Exam Extremities exam: Present: normal inspection - Back Exam Back exam: Present: normal inspection - Neurological Exam Neurological exam: Present: alert, oriented X3 - Psychiatric Psychiatric exam: Present: normal affect, normal mood - Skin Skin exam: Present: warm, dry, intact, normal color. Absent: rash ED Course Vital Signs 03/26/18 20:48 Temperature 99.3 F Pulse Rate 101 H Respiratory 20 Rate Blood Pressure 142/101 O2 Sat by Pulse 97 Oximetry ED Medical Decision Making - Radiology Data Radiology results: image reviewed interpreted by me: PA and lateral chest radiographs two-view: No pneumothorax normal mediastinum normal cardiac silhouette no infiltrate - Medical Decision Making Ms. Childs presents with bronchitis with history of reactive airway disease requiring albuterol nebulizer therapy. Due to smoking secondhand smoke exposure, I prescribed prednisone and albuterol nebulizer solution. Also prescribed loratadine. No evidence of pneumonia on chest x-ray 2 view PA lateral Ms. Childs also has mild abdominal straining with coughing. No peritonitis. Critical care attestation.: If time is entered above; I have spent that time in minutes in the direct care of this critically ill patient, excluding procedure time. ED Disposition Clinical Impression: Acute bronchitis Disposition: TO HOME OR SELFCARE Is pt being admited?: No Does the pt Need Aspirin: No Condition: Stable Instructions: Acute Bronchitis (ED) Prescriptions: ALBUTEROL NEB's [Proventil 0.083% NEBS] 2.5 mg IH TID PRN #90 neb PRN Reason: Wheezing Loratadine 10 mg PO DAILY 30 Days #30 capsule predniSONE [Deltasone] 3 tab PO QDAY 5 Days #15 tab Referrals: LUKAS COPE MD [Primary Care Provider] - 3-5 Days Time of Disposition: 21:52
--- NOTE | 2018-03-26 22:13 | XRay Report ---
FINAL REPORT PROCEDURE: XR CHEST ROUTINE 2V TECHNIQUE: PA and lateral chest radiographs were obtained. CPT 56408 HISTORY: cough COMPARISON: No prior studies are available for comparison. FINDINGS: Heart: Normal. Mediastinum/Vessels: Normal. Lungs/Pleural space: Lungs are hyperinflated. There are no confluent infiltrates or mass lesions. Pleural spaces are clear.. Bony thorax: No acute osseous abnormality. Other: IMPRESSION: No acute pulmonary process COPD.
== END 2018-03-26 22:02 | disposition home or self-care (01) ==
LOC: ED 20:49
DX: J20.9 Acute bronchitis, unspecified (principal); I10 Essential (primary) hypertension; E11.9 Type 2 diabetes mellitus without complications; F32.9 Major depressive disorder, single episode, unspecified; Z90.49 Acquired absence of other specified parts of digestive tract; Z90.710 Acquired absence of both cervix and uterus; Z88.0 Allergy status to penicillin; Z88.1 Allergy status to other antibiotic agents; Z88.5 Allergy status to narcotic agent; Z88.8 Allergy status to other drugs, medicaments and biological substances
CPT/HCPCS: 71046

== ENCOUNTER 2018-04-20 17:54 | Emergency (ER) | payer MEDICAID ==
--- NOTE | 2018-04-20 19:11 | XRay Report ---
FINAL REPORT EXAM: XR WRIST 3+V RT HISTORY: right wrist injury/deformity status post fall on the floor today with pain over the lateral aspect of the wrist. Prior wrist injury 5 years ago. TECHNIQUE: AP, lateral, and oblique views of the right wrist PRIORS: None. FINDINGS: No evidence of acute fracture or dislocation is seen. The soft tissues demonstrate swelling along the palm but no evidence for radiopaque foreign bodies. Joint spaces are maintained. IMPRESSION: No acute bony abnormality identified. Soft tissue swelling along the palm.
[2018-04-20 22:33] VITALS: BP 101/66
--- NOTE | 2018-04-20 22:50 | Emergency Department Report ---
ED Fall HPI - General Chief Complaint: Fall Stated Complaint: RIGHT ARM INJURY Time Seen by Provider: 04/20/18 22:44 Source: patient Mode of arrival: Ambulatory - History of Present Illness Initial Comments: Patient is 53 years old female with past medical history of hypertension and diabetes. Patient presented to the ER for evaluation of right wrist pain that happened after she fell this evening while she was helping her mother. Patient stated that she slipped and fell and landed on right hand. Patient denied any other injury. She denied any head injury, neck injuries chest or abdomen or other extremity injuries. She denied any loss of consciousness or headache. No weakness numbness or tingling sensation. MD Complaint: fall - Related Data Home Medications Medication Instructions Recorded Confirmed Last Taken PARoxetine [Paxil] 20 mg PO DAILY 04/08/16 04/08/16 Unknown Previous Rx's Medication Instructions Recorded Last Taken Type Omeprazole [PriLOSEC] 40 mg PO QDAY #30 capsule. 12/09/15 12/28/15 09:00 Rx Benzonatate [Tessalon Perles] 100 mg PO Q8HR #20 capsule 04/08/16 Unknown Rx Ibuprofen [Motrin] 800 mg PO Q8HR PRN #14 tablet 04/08/16 Unknown Rx Benzonatate [Tessalon Perles] 100 mg PO Q8HR PRN #30 capsule 04/14/16 Unknown Rx Albuterol Sulfate [Proair 90 mcg IH Q4HR PRN #2 aer.pow.ba 06/24/16 Unknown Rx Respiclick] Phenylephrine/Dm/Acetaminop/GG 20 ml PO Q4HR #180 ml 06/24/16 Unknown Rx [Mucinex Dzpy-Sbd-Yfryshgkak Lq] predniSONE [Deltasone] 50 mg PO QDAY #5 tab 06/24/16 Unknown Rx Azithromycin [Zithromax TAB] 500 mg PO QDAY #5 tablet 09/04/16 Unknown Rx traMADol [Ultram] 50 mg PO Q6HR PRN #20 tablet 09/04/16 Unknown Rx ALBUTEROL Inhaler [Proair] 2 puff IH QID PRN #1 inhalation 07/14/17 Unknown Rx Azithromycin [Zithromax Z-FREDDY] 0 mg PO DAILY #6 tab 07/14/17 Unknown Rx Fluconazole [Diflucan TAB] 150 mg PO ONCE #1 tablet 07/14/17 Unknown Rx Albuterol Sulfate [Ventolin HFA] 2 puff IH Q4H PRN #1 hfa.aer.ad 03/05/18 Unknown Rx Azithromycin [Zithromax Z-FREDDY] 250 mg PO QAM #1 packet 03/05/18 Unknown Rx Benzonatate [Tessalon Perles] 100 mg PO Q8HR PRN #30 capsule 03/05/18 Unknown Rx diphenhydrAMINE [Benadryl CAP] 25 mg PO QHS PRN #24 capsule 03/05/18 Unknown Rx ALBUTEROL NEB's [Proventil 0.083% 2.5 mg IH TID PRN #90 neb 03/26/18 Unknown Rx NEBS] Loratadine 10 mg PO DAILY 30 Days #30 capsule 03/26/18 Unknown Rx predniSONE [Deltasone] 3 tab PO QDAY 5 Days #15 tab 03/26/18 Unknown Rx Allergies Allergy/AdvReac Type Severity Reaction Status Date / Time codeine Allergy Rash Verified 10/13/17 21:24 levofloxacin [From Levaquin] Allergy Hives Verified 10/13/17 21:24 Penicillins Allergy Rash Verified 10/13/17 21:24 phenytoin sodium Allergy Rash Verified 10/13/17 21:24 [From Dilantin] phenytoin sodium extended Allergy Rash Verified 10/13/17 21:24 [From Dilantin] Sulfa (Sulfonamide Allergy Rash Verified 10/13/17 21:24 Antibiotics) ED Review of Systems ROS: Stated complaint: RIGHT ARM INJURY Other details as noted in HPI Comment: All other systems reviewed and negative Constitutional: denies: chills, fever Respiratory: denies: orthopnea Cardiovascular: denies: chest pain, palpitations, dyspnea on exertion Gastrointestinal: denies: abdominal pain, nausea, vomiting, diarrhea, constipation, hematemesis, hematochezia Musculoskeletal: denies: back pain Neurological: denies: headache, weakness, numbness, paresthesias ED Past Medical Hx - Past Medical History Previous Medical History?: Yes Hx Hypertension: Yes Hx CVA: Yes Hx Diabetes: Yes Hx GERD: Yes Hx Seizures: Yes Hx Psychiatric Treatment: Yes (depression) Hx Asthma: No Hx COPD: No Additional medical history: h/o ulcers. vertigo - Surgical History Past Surgical History?: Yes Hx Appendectomy: Yes Additional Surgical History: colon resection. hysterectomy - Social History Smoking Status: Current Every Day Smoker Substance Use Type: Prescribed - Medications Home Medications: Home Medications Medication Instructions Recorded Confirmed Last Taken Type Omeprazole [PriLOSEC] 40 mg PO QDAY #30 capsule. 12/09/15 04/08/16 12/28/15 09 :00 Rx Benzonatate [Tessalon Perles] 100 mg PO Q8HR #20 capsule 04/08/16 Unknown Rx Ibuprofen [Motrin] 800 mg PO Q8HR PRN #14 tablet 04/08/16 Unknown Rx PARoxetine [Paxil] 20 mg PO DAILY 04/08/16 04/08/16 Unknown History Benzonatate [Tessalon Perles] 100 mg PO Q8HR PRN #30 capsule 04/14/16 Unknown Rx Albuterol Sulfate [Proair 90 mcg IH Q4HR PRN #2 aer.pow.ba 06/24/16 Unknown Rx Respiclick] Phenylephrine/Dm/Acetaminop/GG 20 ml PO Q4HR #180 ml 06/24/16 Unknown Rx [Mucinex Txij-Anj-Kvtflhuecm Lq] predniSONE [Deltasone] 50 mg PO QDAY #5 tab 06/24/16 Unknown Rx Azithromycin [Zithromax TAB] 500 mg PO QDAY #5 tablet 09/04/16 Unknown Rx traMADol [Ultram] 50 mg PO Q6HR PRN #20 tablet 09/04/16 Unknown Rx ALBUTEROL Inhaler [Proair] 2 puff IH QID PRN #1 inhalation 07/14/17 Unknown Rx Azithromycin [Zithromax Z-FREDDY] 0 mg PO DAILY #6 tab 07/14/17 Unknown Rx Fluconazole [Diflucan TAB] 150 mg PO ONCE #1 tablet 07/14/17 Unknown Rx Albuterol Sulfate [Ventolin HFA] 2 puff IH Q4H PRN #1 hfa.aer.ad 03/05/18 Unknown Rx Azithromycin [Zithromax Z-FREDDY] 250 mg PO QAM #1 packet 03/05/18 Unknown Rx Benzonatate [Tessalon Perles] 100 mg PO Q8HR PRN #30 capsule 03/05/18 Unknown Rx diphenhydrAMINE [Benadryl CAP] 25 mg PO QHS PRN #24 capsule 03/05/18 Unknown Rx ALBUTEROL NEB's [Proventil 0.083% 2.5 mg IH TID PRN #90 neb 03/26/18 Unknown Rx NEBS] Loratadine 10 mg PO DAILY 30 Days #30 capsule 03/26/18 Unknown Rx predniSONE [Deltasone] 3 tab PO QDAY 5 Days #15 tab 03/26/18 Unknown Rx ED Physical Exam - General Limitations: No Limitations General appearance: alert, in no apparent distress - Head Head exam: Present: atraumatic, normocephalic, normal inspection - Eye Eye exam: Present: normal appearance - ENT ENT exam: Present: normal exam, normal orophraynx, mucous membranes moist - Neck Neck exam: Present: normal inspection, full ROM. Absent: tenderness, meningismus, lymphadenopathy, thyromegaly - Respiratory Respiratory exam: Present: normal lung sounds bilaterally. Absent: respiratory distress, wheezes, rales, rhonchi, stridor, chest wall tenderness, accessory muscle use, decreased breath sounds, prolonged expiratory - Cardiovascular Cardiovascular Exam: Present: regular rate, normal rhythm, normal heart sounds - GI/Abdominal GI/Abdominal exam: Present: soft, normal bowel sounds. Absent: distended, tenderness, guarding, rebound, rigid, organomegaly, mass, bruit, pulsatile mass - Expanded Upper Extremity Exam Right Shoulder Exam: Present: normal inspection, full ROM. Absent: tenderness Upper Arm exam: Present: normal inspection, full ROM. Absent: tenderness Elbow exam: Present: normal inspection, full ROM Forearm Wrist exam: Present: normal inspection, full ROM, tenderness. Absent: swelling, abrasion, laceration, ecchymosis, deformity, dislocation Hand Wrist exam: Present: normal inspection, full ROM, tenderness. Absent: swelling, abrasion, deformity ED Course Vital Signs 04/20/18 04/20/18 18:00 22:22 Temperature 98.1 F 98.3 F Pulse Rate 72 94 H Respiratory 18 18 Rate Blood Pressure 131/95 101/66 O2 Sat by Pulse 97 97 Oximetry ED Medical Decision Making - Radiology Data Radiology results: report reviewed Referring Physician: ED DOC Patient Name: JEFF FLORES Date of : 1965 Sex: Female Report Date: 2018-04-20 Report Status: Finalized Findings [facility] [address] [place] [address] XRay Report Signed Patient: JEFF FLORES MR#: [id number] : 1965 Acct:[id number] Age/Sex: 53 / F ADM Date: 04/20/18 Loc: ED Attending Dr: Ordering Physician: CARLTON FLOWERS MD Date of Service: 04/20/18 Procedure(s): XR wrist 3+V RT Accession Number(s): [id number] cc: CARLTON FLOWERS MD Fluoro Time In Minutes: FINAL REPORT EXAM: XR WRIST 3+V RT HISTORY: right wrist injury/deformity status post fall on the floor today with pain over the lateral aspect of the wrist. Prior wrist injury 5 years ago. TECHNIQUE: AP, lateral, and oblique views of the right wrist PRIORS: None. FINDINGS: No evidence of acute fracture or dislocation is seen. The soft tissues demonstrate swelling along the palm but no evidence for radiopaque foreign bodies. Joint spaces are maintained. IMPRESSION: No acute bony abnormality identified. Soft tissue swelling along the palm. Transcribed By: [facility] Dictated By: PHONG SHAW MD Electronically Authenticated By: PHONG SHAW MD Signed Date/Time: 04/20/181906 DD/ 06 TD/TT: 04/20/181906 Critical care attestation.: If time is entered above; I have spent that time in minutes in the direct care of this critically ill patient, excluding procedure time. ED Disposition Clinical Impression: Right wrist sprain, Fall Disposition: DC-01 TO HOME OR SELFCARE Is pt being admited?: No Condition: Stable Instructions: Wrist Sprain (ED), Fall Prevention (ED) Referrals: PRIMARY CARE, [Primary Care Provider] - 3-5 Days
== END 2018-04-20 23:15 | disposition home or self-care (01) ==
LOC: ED 17:54
DX: S63.501A Unspecified sprain of right wrist, initial encounter (principal); I10 Essential (primary) hypertension; E11.9 Type 2 diabetes mellitus without complications; K21.9 Gastro-esophageal reflux disease without esophagitis; F17.200 Nicotine dependence, unspecified, uncomplicated; Z86.73 Personal history of transient ischemic attack (TIA), and cerebral infarction without residual deficits; Z88.6 Allergy status to analgesic agent; Z88.0 Allergy status to penicillin; Z88.2 Allergy status to sulfonamides; Z88.8 Allergy status to other drugs, medicaments and biological substances; W01.0XXA Fall on same level from slipping, tripping and stumbling without subsequent striking against object, initial encounter; Y93.89 Activity, other specified; Y92.89 Other specified places as the place of occurrence of the external cause; Y99.8 Other external cause status
CPT/HCPCS: 99283

== ENCOUNTER 2018-05-15 09:25 | Emergency (ER) | payer MEDICAID ==
[2018-05-15 09:42] VITALS: BP 136/92
[2018-05-15 10:17] LABS: Bilirubin,Urine NEG (Negative); Blood,Urine NEG (Negative); Color,Urine Amber (Yellow); Mucus,Urine 3+ /HPF; Protein,Urine <15 mg/dL mg/dL (Negative)
--- NOTE | 2018-05-15 10:30 | Emergency Department Report ---
ED Female HPI - General Chief complaint: Urogenital-Female Stated complaint: SIDE PAIN Time Seen by Provider: 05/15/18 10:16 Source: patient Mode of arrival: Ambulatory Limitations: No Limitations - History of Present Illness Initial comments: 53-year-old female with diabetes, CVA, hypertension, GERD, previous hysterectomy presents to the hospital complaints of left lower quadrant pain, dysuria, urinary urgency, and groin rash 3 days. Pain is diminishing, moderate , worse with movement and palpation. Patient denies fever, nausea, vomiting, or diarrhea. Patient also complains of right-sided throat pain and ear pain 1 day. Pt does have a PMD -: year(s) - Related Data Home Medications Medication Instructions Recorded Confirmed Last Taken PARoxetine [Paxil] 20 mg PO DAILY 04/08/16 04/08/16 Unknown Previous Rx's Medication Instructions Recorded Last Taken Type Omeprazole [PriLOSEC] 40 mg PO QDAY #30 capsule. 12/09/15 12/28/15 09:00 Rx Benzonatate [Tessalon Perles] 100 mg PO Q8HR #20 capsule 04/08/16 Unknown Rx Ibuprofen [Motrin] 800 mg PO Q8HR PRN #14 tablet 04/08/16 Unknown Rx Benzonatate [Tessalon Perles] 100 mg PO Q8HR PRN #30 capsule 04/14/16 Unknown Rx Albuterol Sulfate [Proair 90 mcg IH Q4HR PRN #2 aer.pow.ba 06/24/16 Unknown Rx Respiclick] Phenylephrine/Dm/Acetaminop/GG 20 ml PO Q4HR #180 ml 06/24/16 Unknown Rx [Mucinex Hgtb-Uwg-Pasumovryc Lq] predniSONE [Deltasone] 50 mg PO QDAY #5 tab 06/24/16 Unknown Rx Azithromycin [Zithromax TAB] 500 mg PO QDAY #5 tablet 09/04/16 Unknown Rx traMADol [Ultram] 50 mg PO Q6HR PRN #20 tablet 09/04/16 Unknown Rx ALBUTEROL Inhaler [Proair] 2 puff IH QID PRN #1 inhalation 07/14/17 Unknown Rx Azithromycin [Zithromax Z-FREDDY] 0 mg PO DAILY #6 tab 07/14/17 Unknown Rx Fluconazole [Diflucan TAB] 150 mg PO ONCE #1 tablet 07/14/17 Unknown Rx Albuterol Sulfate [Ventolin HFA] 2 puff IH Q4H PRN #1 hfa.aer.ad 03/05/18 Unknown Rx Azithromycin [Zithromax Z-FREDDY] 250 mg PO QAM #1 packet 03/05/18 Unknown Rx Benzonatate [Tessalon Perles] 100 mg PO Q8HR PRN #30 capsule 03/05/18 Unknown Rx diphenhydrAMINE [Benadryl CAP] 25 mg PO QHS PRN #24 capsule 03/05/18 Unknown Rx ALBUTEROL NEB's [Proventil 0.083% 2.5 mg IH TID PRN #90 neb 03/26/18 Unknown Rx NEBS] Loratadine 10 mg PO DAILY 30 Days #30 capsule 03/26/18 Unknown Rx predniSONE [Deltasone] 3 tab PO QDAY 5 Days #15 tab 03/26/18 Unknown Rx Naproxen [Naprosyn] 500 mg PO BID #14 tablet 04/20/18 Unknown Rx Clotrimazole 1% [Lotrimin 1%] 1 gm TP BID PRN #1 tube 05/15/18 Unknown Rx Fluconazole [Diflucan TAB] 150 mg PO ONCE #1 tablet 05/15/18 Unknown Rx Allergies Allergy/AdvReac Type Severity Reaction Status Date / Time codeine Allergy Rash Verified 10/13/17 21:24 levofloxacin [From Levaquin] Allergy Hives Verified 10/13/17 21:24 Penicillins Allergy Rash Verified 10/13/17 21:24 phenytoin sodium Allergy Rash Verified 10/13/17 21:24 [From Dilantin] phenytoin sodium extended Allergy Rash Verified 10/13/17 21:24 [From Dilantin] Sulfa (Sulfonamide Allergy Rash Verified 10/13/17 21:24 Antibiotics) ED Review of Systems ROS: Stated complaint: SIDE PAIN Other details as noted in HPI Comment: All other systems reviewed and negative ED Past Medical Hx - Past Medical History Hx Hypertension: Yes Hx CVA: Yes Hx Diabetes: Yes Hx GERD: Yes Hx Seizures: Yes Hx Psychiatric Treatment: Yes (depression) Hx Asthma: No Hx COPD: No Additional medical history: h/o ulcers. vertigo - Surgical History Hx Appendectomy: Yes Additional Surgical History: colon resection. hysterectomy - Social History Smoking Status: Current Every Day Smoker Substance Use Type: None - Medications Home Medications: Home Medications Medication Instructions Recorded Confirmed Last Taken Type Omeprazole [PriLOSEC] 40 mg PO QDAY #30 capsule. 12/09/15 04/08/16 12/28/15 09 :00 Rx Benzonatate [Tessalon Perles] 100 mg PO Q8HR #20 capsule 04/08/16 Unknown Rx Ibuprofen [Motrin] 800 mg PO Q8HR PRN #14 tablet 04/08/16 Unknown Rx PARoxetine [Paxil] 20 mg PO DAILY 04/08/16 04/08/16 Unknown History Benzonatate [Tessalon Perles] 100 mg PO Q8HR PRN #30 capsule 04/14/16 Unknown Rx Albuterol Sulfate [Proair 90 mcg IH Q4HR PRN #2 aer.pow.ba 06/24/16 Unknown Rx Respiclick] Phenylephrine/Dm/Acetaminop/GG 20 ml PO Q4HR #180 ml 06/24/16 Unknown Rx [Mucinex Vtaj-Dwh-Lfzplkzcfn Lq] predniSONE [Deltasone] 50 mg PO QDAY #5 tab 06/24/16 Unknown Rx Azithromycin [Zithromax TAB] 500 mg PO QDAY #5 tablet 09/04/16 Unknown Rx traMADol [Ultram] 50 mg PO Q6HR PRN #20 tablet 09/04/16 Unknown Rx ALBUTEROL Inhaler [Proair] 2 puff IH QID PRN #1 inhalation 07/14/17 Unknown Rx Azithromycin [Zithromax Z-FREDDY] 0 mg PO DAILY #6 tab 07/14/17 Unknown Rx Fluconazole [Diflucan TAB] 150 mg PO ONCE #1 tablet 07/14/17 Unknown Rx Albuterol Sulfate [Ventolin HFA] 2 puff IH Q4H PRN #1 hfa.aer.ad 03/05/18 Unknown Rx Azithromycin [Zithromax Z-FREDDY] 250 mg PO QAM #1 packet 03/05/18 Unknown Rx Benzonatate [Tessalon Perles] 100 mg PO Q8HR PRN #30 capsule 03/05/18 Unknown Rx diphenhydrAMINE [Benadryl CAP] 25 mg PO QHS PRN #24 capsule 03/05/18 Unknown Rx ALBUTEROL NEB's [Proventil 0.083% 2.5 mg IH TID PRN #90 neb 03/26/18 Unknown Rx NEBS] Loratadine 10 mg PO DAILY 30 Days #30 capsule 03/26/18 Unknown Rx predniSONE [Deltasone] 3 tab PO QDAY 5 Days #15 tab 03/26/18 Unknown Rx Naproxen [Naprosyn] 500 mg PO BID #14 tablet 04/20/18 Unknown Rx Clotrimazole 1% [Lotrimin 1%] 1 gm TP BID PRN #1 tube 05/15/18 Unknown Rx Fluconazole [Diflucan TAB] 150 mg PO ONCE #1 tablet 05/15/18 Unknown Rx ED Physical Exam - General Limitations: No Limitations - Other Other exam information: General: No limitations, patient is alert in no acute distress Head exam: Atraumatic, normocephalic Eyes exam: Normal appearance, pupils equal reactive to light, extraocular movements intact ENT: Moist mucous membrane, normal oropharynx no exudates, bilateral TMs without erythema and good light reflex Neck exam: Normal inspection, full range of motion, no meningismus nontender Respiratory exam: Clear to auscultation bilateral, no wheezes, rales, crackles Cardiovascular: Normal rate and rhythm, normal heart sounds Abdomen: Soft, nondistended, left lower quadrant and suprapubic tenderness, with normal bowel sounds, no rebound, or guarding : Patient declined vaginal exam Extremity: Full range of motion normal inspection no deformity Back: Normal Inspection, full range of motion, no tenderness Neurologic: Alert, oriented x3, cranial nerves intact, no motor or sensory deficit Psychiatric: normal affect, normal mood Skin: Patient declined skin exam ED Course Vital Signs 05/15/18 09:40 Temperature 97.6 F Pulse Rate 100 H Respiratory 16 Rate Blood Pressure 136/92 O2 Sat by Pulse 95 Oximetry - Reevaluation(s) Reevaluation #1: 05/15/18 10:43 HR now 86 ED Medical Decision Making - Lab Data Lab Results 05/15/18 Range/Units 09:47 Urine Color Richelle (Yellow) Urine Turbidity Clear (Clear) Urine pH 5.0 (5.0-7.0) Ur Specific [place] 1.029 (1.003-1.030) Urine Protein <15 mg/dl (Negative) mg/dL Urine Glucose (UA) Neg (Negative) mg/dL Urine Ketones Tr (Negative) mg/dL Urine Blood Neg (Negative) Urine Nitrite Neg (Negative) Urine Bilirubin Neg (Negative) Urine Urobilinogen 2.0 (<2.0) mg/dL Ur Leukocyte Esterase Neg (Negative) Urine WBC (Auto) 1.0 (0.0-6.0) /HPF Urine RBC (Auto) 3.0 (0.0-6.0) /HPF U Epithel Cells (Auto) < 1.0 (0-13.0) /HPF Urine Mucus 3+ /HPF - Medical Decision Making Patient stating she thinks she has a yeast infection and has urinary symptoms as well. UA negative for infection. She does have suprapubic and left lower quadrant tenderness. Denies fever. She declined vaginal exam to confirm these infection and requesting Diflucan and cream. She also will not let me examine her external vaginal or groin area for evaluation of rash. Patient informed to return if she develops fever or worsening symptoms. - Differential Diagnosis UTI, diverticulitis, vaginitis, tinea cruris Critical Care Time: No Critical care attestation.: If time is entered above; I have spent that time in minutes in the direct care of this critically ill patient, excluding procedure time. ED Disposition Clinical Impression: Yeast infection, Dysuria Disposition: DC-01 TO HOME OR SELFCARE Is pt being admited?: No Does the pt Need Aspirin: No Condition: Stable Instructions: Vulvovaginal Candidiasis (ED), Jock Itch (ED) Additional Instructions: Take the medication as prescribed. Return is symptoms worsen. You have declined vaginal exam at this time. You are being treated based on your symptoms but please return if you develop other symptoms as indicated by your discharge instructions such as fever or worsening pain as discussed. Prescriptions: Clotrimazole 1% [Lotrimin 1%] 1 gm TP BID PRN #1 tube PRN Reason: Rash Fluconazole [Diflucan TAB] 150 mg PO ONCE #1 tablet Referrals: PRIMARY CARE,MD [Primary Care Provider] - 3-5 Days Time of Disposition: 10:44
== END 2018-05-15 10:52 | disposition home or self-care (01) ==
LOC: ED 09:25
DX: B37.9 Candidiasis, unspecified (principal); R30.0 Dysuria; I10 Essential (primary) hypertension; E11.9 Type 2 diabetes mellitus without complications; Z86.73 Personal history of transient ischemic attack (TIA), and cerebral infarction without residual deficits; K21.9 Gastro-esophageal reflux disease without esophagitis; F17.200 Nicotine dependence, unspecified, uncomplicated; Z88.6 Allergy status to analgesic agent; Z88.1 Allergy status to other antibiotic agents; Z88.0 Allergy status to penicillin; Z88.2 Allergy status to sulfonamides; Z88.8 Allergy status to other drugs, medicaments and biological substances
CPT/HCPCS: 81001; 99283

== ENCOUNTER 2018-06-10 10:46 | Inpatient (IN) | payer MEDICAID ==
[2018-06-10 11:26] LABS: Basophils # (Auto) 0.1 K/mm3 (0.0-0.1); Basophils % (Auto) 0.6 % (0.0-1.8); Eosinophils # (Auto) 0.1 K/mm3 (0.0-0.4); Eosinophils % (Auto) 0.5 % (0.0-4.3); Hematocrit 33.1 % (30.3-42.9); Hemoglobin 10.2 gm/dl (10.1-14.3); Lymphocytes # (Auto) 1.8 K/mm3 (1.2-5.4); Lymphocytes % (Auto) 12.7 % (13.4-35.0); Mean Corpuscular HGB Conc 31 % (30-34); Monocytes # (Auto) 0.7 K/mm3 (0.0-0.8); Monocytes % (Auto) 5.1 % (0.0-7.3); Platelet Count 343 K/mm3 (140-440); Red Blood Count 5.24 M/mm3 (3.65-5.03); Red Cell Distribution Width 18.6 % (13.2-15.2)
[2018-06-10 11:37] LABS: INR 0.97 (0.87-1.13); Mean Corpuscular Hemoglobin 20 pg (28-32); Mean Corpuscular Volume 63 fl (79-97)
[2018-06-10 11:47] LABS: Alanine Aminotransferase 10 units/L (7-56); BUN/Creatinine Ratio 19; Blood Urea Nitrogen 17 mg/dL (7-17); Calcium 9.5 mg/dL (8.4-10.2); Hemolysis Index 3; Lipase 25 units/L (13-60)
--- NOTE | 2018-06-10 11:49 | Emergency Department Report ---
ED Abdominal Pain HPI - General Chief Complaint: Abdominal Pain Stated Complaint: ABD PAIN Time Seen by Provider: 06/10/18 11:46 Source: patient, EMS Mode of arrival: Stretcher Limitations: No Limitations - History of Present Illness Initial Comments: 53 y/o female who is a very poor hxian c/o abdominal pain. The patient is very reticent to answer questions or provide historical details. She states that it hurts worse in the right lower quadrant of her abdomen. She has had nausea. She doesn't refer krissy chills. She hasn't taken her temperature. She is largely unwilling or disinterested in answering questions and turns over onto her left lateral decubitus position. She states that she has had a bowel blockage in the past. She is status post a colon resection and prior hysterectomy. However review of her previous medical records does indicate that she had a normal CT on 01/26/2017. She has been in the emergency department over 20 times for ambulatory complaints. Apparently she has a history of COPD and schizoaffective disorder. She was admitted 2012 here for headache associated with altered mental status. MD Complaint: abdominal pain -: Gradual, unknown (patient is largely unrevealing willing to state how long she has had the abdominal pain my impression is less than 24 hours.) Location: diffuse, RLQ Radiation: none Severity: moderate Quality: other Consistency: constant Improves With: nothing Worsens With: nothing Associated Symptoms: nausea (possibly very poor historian) - Related Data Home Medications Medication Instructions Recorded Confirmed Last Taken PARoxetine [Paxil] 20 mg PO DAILY 04/08/16 04/08/16 Unknown Previous Rx's Medication Instructions Recorded Last Taken Type Omeprazole [PriLOSEC] 40 mg PO QDAY #30 capsule. 12/09/15 12/28/15 09:00 Rx Benzonatate [Tessalon Perles] 100 mg PO Q8HR #20 capsule 04/08/16 Unknown Rx Ibuprofen [Motrin] 800 mg PO Q8HR PRN #14 tablet 04/08/16 Unknown Rx Benzonatate [Tessalon Perles] 100 mg PO Q8HR PRN #30 capsule 04/14/16 Unknown Rx Albuterol Sulfate [Proair 90 mcg IH Q4HR PRN #2 aer.pow.ba 06/24/16 Unknown Rx Respiclick] Phenylephrine/Dm/Acetaminop/GG 20 ml PO Q4HR #180 ml 06/24/16 Unknown Rx [Mucinex Xaks-Yjm-Mlfniqulkf Lq] predniSONE [Deltasone] 50 mg PO QDAY #5 tab 06/24/16 Unknown Rx Azithromycin [Zithromax TAB] 500 mg PO QDAY #5 tablet 09/04/16 Unknown Rx traMADol [Ultram] 50 mg PO Q6HR PRN #20 tablet 09/04/16 Unknown Rx ALBUTEROL Inhaler [Proair] 2 puff IH QID PRN #1 inhalation 07/14/17 Unknown Rx Azithromycin [Zithromax Z-FREDDY] 0 mg PO DAILY #6 tab 07/14/17 Unknown Rx Fluconazole [Diflucan TAB] 150 mg PO ONCE #1 tablet 07/14/17 Unknown Rx Albuterol Sulfate [Ventolin HFA] 2 puff IH Q4H PRN #1 hfa.aer.ad 03/05/18 Unknown Rx Azithromycin [Zithromax Z-FREDDY] 250 mg PO QAM #1 packet 03/05/18 Unknown Rx Benzonatate [Tessalon Perles] 100 mg PO Q8HR PRN #30 capsule 03/05/18 Unknown Rx diphenhydrAMINE [Benadryl CAP] 25 mg PO QHS PRN #24 capsule 03/05/18 Unknown Rx ALBUTEROL NEB's [Proventil 0.083% 2.5 mg IH TID PRN #90 neb 03/26/18 Unknown Rx NEBS] Loratadine 10 mg PO DAILY 30 Days #30 capsule 03/26/18 Unknown Rx predniSONE [Deltasone] 3 tab PO QDAY 5 Days #15 tab 03/26/18 Unknown Rx Naproxen [Naprosyn] 500 mg PO BID #14 tablet 04/20/18 Unknown Rx Clotrimazole 1% [Lotrimin 1%] 1 gm TP BID PRN #1 tube 05/15/18 Unknown Rx Fluconazole [Diflucan TAB] 150 mg PO ONCE #1 tablet 05/15/18 Unknown Rx Allergies Allergy/AdvReac Type Severity Reaction Status Date / Time codeine Allergy Rash Verified 10/13/17 21:24 levofloxacin [From Levaquin] Allergy Hives Verified 10/13/17 21:24 Penicillins Allergy Rash Verified 10/13/17 21:24 phenytoin sodium Allergy Rash Verified 10/13/17 21:24 [From Dilantin] phenytoin sodium extended Allergy Rash Verified 10/13/17 21:24 [From Dilantin] Sulfa (Sulfonamide Allergy Rash Verified 10/13/17 21:24 Antibiotics) ED Review of Systems ROS: Stated complaint: ABD PAIN Other details as noted in HPI Comment: Unobtainable due to pts medical conditions (patient globally denying other symptoms) ED Past Medical Hx - Past Medical History Hx Hypertension: Yes Hx CVA: Yes Hx Diabetes: Yes Hx GERD: Yes Hx Seizures: Yes Hx Psychiatric Treatment: Yes (depression) Hx Asthma: No Hx COPD: No Additional medical history: h/o ulcers. vertigo - Surgical History Hx Appendectomy: Yes Additional Surgical History: colon resection. hysterectomy - Social History Smoking Status: Current Every Day Smoker Substance Use Type: None - Medications Home Medications: Home Medications Medication Instructions Recorded Confirmed Last Taken Type Omeprazole [PriLOSEC] 40 mg PO QDAY #30 capsule. 12/09/15 04/08/16 12/28/15 09 :00 Rx Benzonatate [Tessalon Perles] 100 mg PO Q8HR #20 capsule 04/08/16 Unknown Rx Ibuprofen [Motrin] 800 mg PO Q8HR PRN #14 tablet 04/08/16 Unknown Rx PARoxetine [Paxil] 20 mg PO DAILY 04/08/16 04/08/16 Unknown History Benzonatate [Tessalon Perles] 100 mg PO Q8HR PRN #30 capsule 04/14/16 Unknown Rx Albuterol Sulfate [Proair 90 mcg IH Q4HR PRN #2 aer.pow.ba 06/24/16 Unknown Rx Respiclick] Phenylephrine/Dm/Acetaminop/GG 20 ml PO Q4HR #180 ml 06/24/16 Unknown Rx [Mucinex Gbae-Pbu-Ycovmdpsyx Lq] predniSONE [Deltasone] 50 mg PO QDAY #5 tab 06/24/16 Unknown Rx Azithromycin [Zithromax TAB] 500 mg PO QDAY #5 tablet 09/04/16 Unknown Rx traMADol [Ultram] 50 mg PO Q6HR PRN #20 tablet 09/04/16 Unknown Rx ALBUTEROL Inhaler [Proair] 2 puff IH QID PRN #1 inhalation 07/14/17 Unknown Rx Azithromycin [Zithromax Z-FREDDY] 0 mg PO DAILY #6 tab 07/14/17 Unknown Rx Fluconazole [Diflucan TAB] 150 mg PO ONCE #1 tablet 07/14/17 Unknown Rx Albuterol Sulfate [Ventolin HFA] 2 puff IH Q4H PRN #1 hfa.aer.ad 03/05/18 Unknown Rx Azithromycin [Zithromax Z-FREDDY] 250 mg PO QAM #1 packet 03/05/18 Unknown Rx Benzonatate [Tessalon Perles] 100 mg PO Q8HR PRN #30 capsule 03/05/18 Unknown Rx diphenhydrAMINE [Benadryl CAP] 25 mg PO QHS PRN #24 capsule 03/05/18 Unknown Rx ALBUTEROL NEB's [Proventil 0.083% 2.5 mg IH TID PRN #90 neb 03/26/18 Unknown Rx NEBS] Loratadine 10 mg PO DAILY 30 Days #30 capsule 03/26/18 Unknown Rx predniSONE [Deltasone] 3 tab PO QDAY 5 Days #15 tab 03/26/18 Unknown Rx Naproxen [Naprosyn] 500 mg PO BID #14 tablet 04/20/18 Unknown Rx Clotrimazole 1% [Lotrimin 1%] 1 gm TP BID PRN #1 tube 05/15/18 Unknown Rx Fluconazole [Diflucan TAB] 150 mg PO ONCE #1 tablet 05/15/18 Unknown Rx ED Physical Exam - General Limitations: Other (poor cooperation versus altered mental status) General appearance: alert, in no apparent distress - Head Head exam: Present: atraumatic, normocephalic - Eye Eye exam: Present: normal appearance, PERRL, EOMI. Absent: scleral icterus - ENT ENT exam: Present: mucous membranes dry - Neck Neck exam: Present: normal inspection. Absent: tenderness, meningismus - Respiratory Respiratory exam: Present: normal lung sounds bilaterally. Absent: respiratory distress - Cardiovascular Cardiovascular Exam: Present: regular rate, normal rhythm. Absent: systolic murmur, diastolic murmur, rubs, gallop - GI/Abdominal GI/Abdominal exam: Present: soft, tenderness (epigastric/right upper quadrant and right lower quadrant tenderness), guarding (some voluntary guarding no rebound), normal bowel sounds. Absent: distended, rebound, rigid - Extremities Exam Extremities exam: Present: normal inspection - Back Exam Back exam: Present: normal inspection - Neurological Exam Neurological exam: Present: alert, oriented X3, CN II-XII intact. Absent: motor sensory deficit - Psychiatric Psychiatric exam: Present: anxious, flat affect - Skin Skin exam: Present: warm, dry, intact, normal color. Absent: rash ED Course Vital Signs 06/10/18 06/10/18 06/10/18 10:54 11:30 11:58 Temperature 98.4 F Pulse Rate 88 84 Respiratory 20 16 16 Rate Blood Pressure 163/71 Blood Pressure 156/71 [Right] O2 Sat by Pulse 98 98 99 Oximetry 06/10/18 06/10/18 06/10/18 13:58 14:58 15:58 Temperature 98.0 F Pulse Rate 87 79 86 Respiratory 14 16 16 Rate Blood Pressure Blood Pressure 161/70 146/73 144/80 [Right] O2 Sat by Pulse 99 99 98 Oximetry - Reevaluation(s) Reevaluation #1: Patient has been reexamined a few times. She Does have continued abdominal tenderness. I do not when that her mental status has become appropriate. Her abdominal pain and tenderness was of concern so initially she received empiric antibiotics. Since she maintains inappropriate with abdominal tenderness, her workup has been broadened. She will be treated for sepsis. A CT of her head will be obtained. Although the patient's urine not diagnostic of infection, there remains the possibility of an infected kidney stone. She does have an elevated white blood cell count the kidney stone per radiologist is only 1 mm which makes it likely to pass. However she does have moderate hydronephrosis. CT does correlate with the site of her maximum tenderness which is the right lower quadrant of her abdomen. However it is atypical for her to have persistent abdominal tenderness. As such I have consult to Dr. Dyer the interventional radiologist. I repeated the patient's white blood cell count and lactic acid level. Should she have more signs of sepsis a nephrostomy may be indicated. Her Manisha stated that he will be available to do so if need be. He will evaluate the patient. The patient has been referred to Dr. Adam for admission. 06/10/18 17:06 ED Medical Decision Making - Lab Data Result diagrams: 06/10/18 11:03 06/10/18 11:03 Laboratory Results - last 24 hr 06/10/18 06/10/18 06/10/18 11:03 11:03 11:03 WBC 13.9 H RBC 5.24 H Hgb 10.2 Hct 33.1 MCV 63 L MCH 20 L MCHC 31 RDW 18.6 H Plt Count 343 Lymph % (Auto) 12.7 L [place] % (Auto) 5.1 Eos % (Auto) 0.5 Baso % (Auto) 0.6 Lymph # 1.8 [place] # 0.7 Eos # 0.1 Baso # 0.1 Seg Neutrophils % 81.1 H Seg Neutrophils # 11.3 H PT 13.4 INR 0.97 Sodium Potassium Chloride Carbon Dioxide Anion Gap BUN Creatinine Estimated GFR BUN/Creatinine Ratio Glucose Calcium Total Bilirubin AST ALT Alkaline Phosphatase Total Protein Albumin Albumin/Globulin Ratio Amylase 60 Lipase 06/10/18 11:03 WBC RBC Hgb Hct MCV MCH MCHC RDW Plt Count Lymph % (Auto) [place] % (Auto) Eos % (Auto) Baso % (Auto) Lymph # [place] # Eos # Baso # Seg Neutrophils % Seg Neutrophils # PT INR Sodium 144 Potassium 3.3 L Chloride 104.5 Carbon Dioxide 21 L Anion Gap 22 BUN 17 Creatinine 0.9 Estimated GFR > 60 BUN/Creatinine Ratio 19 Glucose 130 H Calcium 9.5 Total Bilirubin 0.40 AST 15 ALT 10 Alkaline Phosphatase 121 Total Protein 7.9 Albumin 4.0 Albumin/Globulin Ratio 1.0 Amylase Lipase 25 - Radiology Data Radiology results: report reviewed (1 mm stone in the right UVJ with moderate hydronephrosis. No other findings per radiologist.) Critical Care Time: Yes Critical care time in (mins) excluding proc time.: 90 Critical care attestation.: If time is entered above; I have spent that time in minutes in the direct care of this critically ill patient, excluding procedure time. ED Disposition Clinical Impression: Abdominal pain Qualifiers: Abdominal location: right lower quadrant Qualified Code(s): R10.31 - Right lower quadrant pain Hydronephrosis Qualifiers: Hydronephrosis type: with renal calculous obstruction Qualified Code(s): N13.2 - Hydronephrosis with renal and ureteral calculous obstruction Leukocytosis Qualifiers: Leukocytosis type: unspecified Qualified Code(s): D72.829 - Elevated white blood cell count, unspecified Altered mental status Qualifiers: Altered mental status type: delirium Qualified Code(s): R41.0 - Disorientation , unspecified Schizoaffective disorder Qualifiers: Schizoaffective disorder type: bipolar Qualified Code(s): F25.0 - Schizoaffective disorder, bipolar type Disposition: DC-09 OP ADMIT IP TO THIS HOSP Is pt being admited?: Yes Does the pt Need Aspirin: Yes Condition: Stable Instructions: Abdominal Pain (ED) Time of Disposition: 17:16
[2018-06-10] MEDS ORDERED: MORPHINE IV ONE (11:53)
[2018-06-10] MEDS ORDERED: NACL 0.9% 1000 ML 1,000 ML IV ONE (11:53)
[2018-06-10] MEDS ORDERED: ZOFRAN IV ONE (11:53)
[2018-06-10] MEDS ORDERED: PROTONIX IV ONE (11:53)
[2018-06-10] MEDS ORDERED: MERREM/NS 500 MG/50 ML 500 MG/50 ML BAG IV ONE ×2 (11:57→20:00)
[2018-06-10 12:02] LABS: Bilirubin,Direct < 0.2 mg/dL (0-0.2)
[2018-06-10 12:30] LABS: Partial Thromboplastin Time 25.8 Sec. (24.2-36.6)
--- NOTE | 2018-06-10 13:11 | Cat Scan Report ---
CT scan of abdomen and pelvis with IV contrast: History: Abdominal pain, no BM history of obstruction. Findings: Normal lung bases. No pleural or pericardial effusion. Moderate size sliding hiatal hernia. Normal liver spleen pancreas and gallbladder. Normal adrenals. There is 1 mm calculus noted at the right UV junction with proximal hydronephrosis. No calculi at kidney parenchyma. No calculi in the bladder. No free intraperitoneal fluid or air. No evidence of adenopathy. Normal aorta. No evidence of appendicitis or diverticulitis. Stool in colon. No bowel distention Impression: 1 mm calculus distal right UV junction with proximal hydronephrosis.
[2018-06-10 13:48] LABS: Bilirubin,Urine NEG (Negative); Blood,Urine NEG (Negative); Color,Urine Straw (Yellow); Hyaline Casts,Urine 1 /LPF; Mucus,Urine FEW /HPF; Protein,Urine <15 mg/dL mg/dL (Negative); Urobilinogen,Urine < 2.0 mg/dL (<2.0); WBC,Urine < 1.0 /HPF (0.0-6.0)
[2018-06-10 13:56] LABS: Amphetamine Screen,Urine PRESUMPTIVE NEGATIVE; Benzodiazepines Screen,Urine PRESUMPTIVE NEGATIVE; Cannabinoid Screen,Urine PRESUMPTIVE NEGATIVE; Cocaine Screen,Urine PRESUMPTIVE NEGATIVE; Methadone Screen,Urine PRESUMPTIVE NEGATIVE; Opiate Screen,Urine PRESUMPTIVE NEGATIVE
[2018-06-10] MEDS ORDERED: K-DUR PO ONE ×2 (16:30→17:54)
[2018-06-10] MEDS ORDERED: NACL 0.9% 1000 ML IV ONE (16:41)
[2018-06-10] MEDS ORDERED: PROVENTIL IH PRN (16:41)
[2018-06-10] MEDS ORDERED: SODIUM CHLORIDE FLUSH SYRINGE 10 ML IV PRN (16:41)
[2018-06-10] MEDS ORDERED: VANCOMYCIN 1,500 MG in NACL 0.9% 500 ML 500 ML IV ONE (17:00)
[2018-06-10] MEDS ORDERED: VANCOMYCIN PHARMACY TO DOSE IV SCH (17:00)
[2018-06-10] MEDS ORDERED: BABY ASPIRIN PO ONE (17:17)
[2018-06-10 17:32] LABS: Hematocrit 32.4 % (30.3-42.9); Hemoglobin 9.8 gm/dl (10.1-14.3); Mean Corpuscular HGB Conc 30 % (30-34); Platelet Count 345 K/mm3 (140-440); Red Blood Count 5.14 M/mm3 (3.65-5.03); Red Cell Distribution Width 18.7 % (13.2-15.2)
[2018-06-10 17:38] LABS: Mean Corpuscular Hemoglobin 19 pg (28-32); Mean Corpuscular Volume 63 fl (79-97)
[2018-06-10] MEDS ORDERED: BABY ASPIRIN ONE (17:55)
--- NOTE | 2018-06-10 18:00 | History and Physical Report ---
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 Pt states that she has experienced pain in her right side for the past 3 days with persistent symptoms during that same time frame. Pt states that pain is 10/10, constant, worse with movement, relieved with rest, not associated with meals. Pt denies hematuria, fever, chlls, CP, Palpitations, NVD productive cough, skin rash, or recent ill contacts. Pt seen and evaluated in ED and found to have Right UV Obstructing stone with hydronephrosis, complicated by sepsis and encephalopathy. Pt admitted to medical floor. IR team consulted in ED for percutaneous nephrostomy tube placement. Past History Past Medical History: GERD, hypertension, seizures, stroke Past Surgical History: appendectomy, hysterectomy, bowel surgery Social history: , lives with family, smoking Family history: no significant family history (reviewed) Medications and Allergies Allergies Allergy/AdvReac Type Severity Reaction Status Date / Time codeine Allergy Rash Verified 10/13/17 21:24 levofloxacin [From Levaquin] Allergy Hives Verified 10/13/17 21:24 Penicillins Allergy Rash Verified 10/13/17 21:24 phenytoin sodium Allergy Rash Verified 10/13/17 21:24 [From Dilantin] phenytoin sodium extended Allergy Rash Verified 10/13/17 21:24 [From Dilantin] Sulfa (Sulfonamide Allergy Rash Verified 10/13/17 21:24 Antibiotics) Home Medications Medication Instructions Recorded Confirmed Last Taken Type Omeprazole [PriLOSEC] 40 mg PO QDAY #30 capsule. 12/09/15 04/08/16 12/28/15 09 :00 Rx Benzonatate [Tessalon Perles] 100 mg PO Q8HR #20 capsule 04/08/16 Unknown Rx Ibuprofen [Motrin] 800 mg PO Q8HR PRN #14 tablet 04/08/16 Unknown Rx PARoxetine [Paxil] 20 mg PO DAILY 04/08/16 04/08/16 Unknown History Benzonatate [Tessalon Perles] 100 mg PO Q8HR PRN #30 capsule 05/31/16 Unknown Rx Albuterol Sulfate [Proair 90 mcg IH Q4HR PRN #2 aer.pow.ba 06/24/16 Unknown Rx Respiclick] Phenylephrine/Dm/Acetaminop/GG 20 ml PO Q4HR #180 ml 06/24/16 Unknown Rx [Mucinex Tjlr-Fyu-Suiybftdqw Lq] predniSONE [Deltasone] 50 mg PO QDAY #5 tab 06/24/16 Unknown Rx Azithromycin [Zithromax TAB] 500 mg PO QDAY #5 tablet 09/04/16 Unknown Rx traMADol [Ultram] 50 mg PO Q6HR PRN #20 tablet 09/04/16 Unknown Rx ALBUTEROL Inhaler [Proair] 2 puff IH QID PRN #1 inhalation 07/14/17 Unknown Rx Azithromycin [Zithromax Z-FREDDY] 0 mg PO DAILY #6 tab 07/14/17 Unknown Rx Fluconazole [Diflucan TAB] 150 mg PO ONCE #1 tablet 07/14/17 Unknown Rx Albuterol Sulfate [Ventolin HFA] 2 puff IH Q4H PRN #1 hfa.aer.ad 03/05/18 Unknown Rx Azithromycin [Zithromax Z-FREDDY] 250 mg PO QAM #1 packet 03/05/18 Unknown Rx Benzonatate [Tessalon Perles] 100 mg PO Q8HR PRN #30 capsule 03/05/18 Unknown Rx diphenhydrAMINE [Benadryl CAP] 25 mg PO QHS PRN #24 capsule 03/05/18 Unknown Rx ALBUTEROL NEB's [Proventil 0.083% 2.5 mg IH TID PRN #90 neb 03/26/18 Unknown Rx NEBS] Loratadine 10 mg PO DAILY 30 Days #30 capsule 03/26/18 Unknown Rx predniSONE [Deltasone] 3 tab PO QDAY 5 Days #15 tab 03/26/18 Unknown Rx Naproxen [Naprosyn] 500 mg PO BID #14 tablet 04/20/18 Unknown Rx Clotrimazole 1% [Lotrimin 1%] 1 gm TP BID PRN #1 tube 05/15/18 Unknown Rx Fluconazole [Diflucan TAB] 150 mg PO ONCE #1 tablet 05/15/18 Unknown Rx Active Meds: Active Medications Acetaminophen (Tylenol) 650 mg PO Q4H PRN PRN Reason: Pain MILD(1-3)/Fever >100.5/PAVON Albuterol (Proventil) 2.5 mg IH Q4HRT PRN PRN Reason: Shortness Of Breath Meropenem (Merrem/Ns 500 Mg/50 Ml) 500 mg in 50 mls @ 50 mls/hr IV ONCE ONE Stop: 06/10/18 20:59 Vancomycin HCl 1,500 mg/ (Sodium Chloride) 515 mls @ 333.333 mls/hr IV ONCE ONE Stop: 06/10/18 18:32 Last Admin: 06/10/18 17:52 Dose: 333.333 mls/hr Vancomycin HCl (Vancomycin/Ns 1 Gm/250 Ml) 1 gm in 250 mls @ 166.667 mls/hr IV Q12H MAYA Ondansetron HCl (Zofran) 4 mg IV Q8H PRN PRN Reason: Nausea And Vomiting Sodium Chloride (Sodium Chloride Flush Syringe 10 Ml) 10 ml IV BID MAYA Sodium Chloride (Sodium Chloride Flush Syringe 10 Ml) 10 ml IV PRN PRN PRN Reason: LINE FLUSH Vancomycin HCl (Vancomycin Pharmacy To Dose) 1 each IV PKCONSULT MAYA; Protocol Review of Systems Constitutional: no weight loss, no weight gain, no fever, no chills Ears, nose, mouth and throat: no ear pain, no ear discharge, no tinnitis, no decreased hearing, no nose pain Breasts: no change in shape, no swelling, no mass Cardiovascular: no chest pain, no orthopnea, no palpitations, no rapid/ irregular heart beat, no edema Respiratory: no cough, no cough with sputum, no excessive sputum, no hemoptysis , no shortness of breath Gastrointestinal: no nausea, no vomiting, no diarrhea, no hematemesis, no BRBPR , no hematochezia, no loss of appetite Genitourinary Female: flank pain, no dysuria, no urinary frequency, no urgency Rectal: no pain, no incontinence, no bleeding Musculoskeletal: no neck stiffness, no neck pain, no shooting arm pain, no arm numbness/tingling Integumentary: no rash, no pruritis, no redness, no sores, no wounds, no jaundice Neurological: no head injury, no weakness, no parathesias, no numbness Psychiatric: no anxiety, no memory loss, no change in sleep habits, no sleep disturbances, no insomnia, no hypersomnia, no change in appetite Endocrine: no heat intolerance, no excessive thirst, no polydipsia, no polyuria , no nocturia, no excessive sweating Hematologic/Lymphatic: no easy bruising, no easy bleeding, no lymphadenopathy, no lymphedema Allergic/Immunologic: no urticaria, no allergic rhinitis, no wheezing, no persistent infections, no anaphylaxis Exam - Constitutional Vitals: Temp Pulse Resp BP Pulse Ox 98.0 F 86 16 144/80 98 06/10/18 14:58 06/10/18 15:58 06/10/18 15:58 06/10/18 15:58 06/10/18 15:58 General appearance: Present: mild distress, disheveled - EENT Eyes: Present: PERRL ENT: hearing intact, clear oral mucosa - Neck Neck: Present: supple, normal ROM - Respiratory Respiratory effort: normal Respiratory: bilateral: CTA - Cardiovascular Heart Sounds: Present: S1 & S2. Absent: rub, click - Extremities Extremities: pulses symmetrical, No edema Peripheral Pulses: abnormal (capillary refill greater than 3.5 seconds) - Abdominal General gastrointestinal: Present: soft, non-tender, non-distended, normal bowel sounds Female genitourinary: Present: normal - Integumentary Integumentary: Present: clear, warm, dry - Musculoskeletal Musculoskeletal: gait normal, strength equal bilaterally - Psychiatric Psychiatric: appropriate mood/affect, intact judgment & insight - Neurologic Neurologic: CNII-XII intact, moves all extremities Results - Labs CBC & Chem 7: 06/10/18 16:44 06/10/18 11:03 Labs: Abnormal lab results 06/10/18 06/10/18 06/10/18 Range/Units 11:03 11:03 13:38 WBC 13.9 H (4.5-11.0) K/mm3 RBC 5.24 H (3.65-5.03) M/mm3 Hgb (10.1-14.3) gm/dl MCV 63 L (79-97) fl MCH 20 L (28-32) pg RDW 18.6 H (13.2-15.2) % Lymph % (Auto) 12.7 L (13.4-35.0) % Seg Neutrophils % 81.1 H (40.0-70.0) % Seg Neutrophils # 11.3 H (1.8-7.7) K/mm3 Potassium 3.3 L (3.6-5.0) mmol/L Carbon Dioxide 21 L (22-30) mmol/L Glucose 130 H (65-100) mg/dL Ur Specific [place] 1.035 H (1.003-1.030) 06/10/18 Range/Units 16:44 WBC 17.6 H (4.5-11.0) K/mm3 RBC 5.14 H (3.65-5.03) M/mm3 Hgb 9.8 L (10.1-14.3) gm/dl MCV 63 L (79-97) fl MCH 19 L (28-32) pg RDW 18.7 H (13.2-15.2) % Lymph % (Auto) (13.4-35.0) % Seg Neutrophils % (40.0-70.0) % Seg Neutrophils # (1.8-7.7) K/mm3 Potassium (3.6-5.0) mmol/L Carbon Dioxide (22-30) mmol/L Glucose (65-100) mg/dL Ur Specific [place] (1.003-1.030) Assessment and Plan - Patient Problems (1) Sepsis Current Visit: Yes Status: Acute Qualifiers: Sepsis type: sepsis due to unspecified organism Qualified Code(s): A41.9 - Sepsis, unspecified organism Plan to address problem: Sepsis Protocol: IV antibiotics, IVF resuscitation, blood cultures, serial lactic acid, pain control, CT Abdomen/pelvis, urinalysis, chest x ray (2) Nicotine dependence with withdrawal Current Visit: Yes Status: Acute Qualifiers: Nicotine product type: cigarettes Qualified Code(s): F17.213 - Nicotine dependence, cigarettes, with withdrawal Plan to address problem: smoking cessation counseling, supportive care. (3) Nephrolithiasis Current Visit: Yes Status: Acute Plan to address problem: IR consulted for R UV stone with proximal hydronephrosis, supportive care. (4) Encephalopathy Current Visit: Yes Status: Acute Plan to address problem: CT head, treat sepsis, neuro checks, supportive care. (5) Nasopharyngeal cancer Current Visit: Yes Status: Acute Plan to address problem: Outpatient ENT F/U care for evaluation of mass. (6) Schizoaffective disorder Current Visit: Yes Status: Chronic Qualifiers: Schizoaffective disorder type: bipolar Qualified Code(s): F25.0 - Schizoaffective disorder, bipolar type Plan to address problem: resume prehospital medication, supportive care. (7) DVT prophylaxis Current Visit: Yes Status: Acute Plan to address problem: SCD to bLE while in bed
--- NOTE | 2018-06-10 18:06 | Cat Scan Report ---
FINAL REPORT EXAM: CT HEAD/BRAIN WO CON HISTORY: AMS TECHNIQUE: 2.5 millimeter axial images from the skullbase to the vertex. Comparison: Head CT dated October 13, 2017 FINDINGS: There is no evidence of an acute intracranial process, intracranial hemorrhage or mass effect. The ventricles are normal size. The visualized portions of the orbits, paranasal and mastoid sinuses are unremarkable. There is abnormal soft tissue density in the posterior nasopharynx in the midline and on the right in the region of fossa of Rosenmuller. This is slightly heterogeneous in appearance and is concerning for a mass in this region. IMPRESSION: 1. Abnormal soft tissue density in the posterior nasopharynx in the midline and on the right in the region of fossa of Rosenmuller. This is concerning for a mass in this region. Referral to ENT for direct inspection and recommendation for further imaging. This may include a CT of the face/neck with IV contrast or MRI of the face/neck without and with gadolinium. 2. No evidence of an acute intracranial process, intracranial hemorrhage or mass effect. If there is a clinical suspicion of an acute intracranial process, MRI brain would be helpful.
[2018-06-10 18:08] LABS: Band Neutrophils # (Manual) 0.4 K/mm3; Basophils % (Manual) 0 % (0.0-1.8); Eosinophils % (Manual) 0 % (0.0-4.3); Monocytes % (Manual) 0 % (0.0-7.3); Total Cells Counted 100
[2018-06-10 18:10] LABS: Platelet Estimate Consistent w Auto; Poikilocytosis Few
--- NOTE | 2018-06-10 18:23 | XRay Report ---
FINAL REPORT EXAM: XR CHEST 1V AP HISTORY: hypertension TECHNIQUE: Obliqued frontal portable view of the chest Comparison: Chest x-ray dated March 26, 2018 FINDINGS: There is no evidence of infiltrate, pneumothorax or pleural fluid collection. The cardiomediastinal silhouette is unremarkable in appearance. The bony structures are unremarkable. Visualization detail of the thoracic spine is limited. IMPRESSION: 1. No evidence of an acute pulmonary process.
[2018-06-10] MEDS: ZOFRAN IV PRN (20:32)
[2018-06-10] MEDS: TYLENOL PO PRN (20:35)
[2018-06-10] MEDS: SODIUM CHLORIDE FLUSH SYRINGE 10 ML IV SCH (22:07)
[2018-06-11] MEDS: MORPHINE IV PRN ×2 (01:52→13:52)
[2018-06-11] MEDS ORDERED: VANCOMYCIN/NS 1 GM/250 ML 1 GM/250 ML BAG IV SCH (04:30)
[2018-06-11] MEDS: SODIUM CHLORIDE FLUSH SYRINGE 10 ML IV SCH ×2 (10:00→21:39)
[2018-06-11 10:14] LABS: Hemoglobin 9.8 gm/dl (10.1-14.3); Mean Corpuscular HGB Conc 31 % (30-34); Platelet Count 330 K/mm3 (140-440); Red Blood Count 5.07 M/mm3 (3.65-5.03); Red Cell Distribution Width 18.5 % (13.2-15.2)
[2018-06-11 10:19] LABS: Mean Corpuscular Hemoglobin 19 pg (28-32); Mean Corpuscular Volume 63 fl (79-97)
[2018-06-11] MEDS: ZOFRAN IV PRN ×2 (10:27→17:06)
[2018-06-11 10:32] LABS: Calcium 9.1 mg/dL (8.4-10.2)
--- NOTE | 2018-06-11 11:47 | Progress Note ---
Assessment and Plan / Sepsis Sepsis Protocol: IV antibiotics, IVF resuscitation, blood cultures, serial lactic acid, pain control, /Nephrolithiasis IR consulted for R UV stone with proximal hydronephrosis for possible PCN if no improvement, cont supportive care with iv fluid and pain meds. / Nicotine dependence smoking cessation counseling, supportive care. / Encephalopathy due to metabolic along with her psych history appears at baseline now CT head negative for acute intracranial change, treat sepsis, neuro checks, supportive care. /Nasopharyngeal cancer Outpatient ENT F/U care for evaluation of mass. /Schizoaffective disorder resumed prehospital medication, supportive care. mental health consult if needed / DVT prophylaxis SCD to bLE while in bed Brief History: 53 y/o female with h/o COPD and schizoaffective disorder who is a very poor historian presented with c/o abdominal pain. She has been in the emergency department over 20 times for ambulatory complaints. CT abdomen/pelvis showed 1 mm calculus distal right UV junction with proximal hydronephrosis. Radiological data: CT abdomen/pelvis w contrast: 1 mm calculus distal right UV junction with proximal hydronephrosis. CXR: 1. No evidence of an acute pulmonary process. Head CT: 1. Abnormal soft tissue density in the posterior nasopharynx in the midline and on the right in the region of fossa of [place]er. This is concerning for a mass in this region. Referral to ENT for direct inspection and recommendation for further imaging. This may include a CT of the face/neck with IV contrast or MRI of the face/neck without and with gadolinium. 2. No evidence of an acute intracranial process, intracranial hemorrhage or mass effect. Subjective Date of service: 06/11/18 Interval history: Pt seen and examined c/o abdominal pain and constipation, but n/V improved Willing to try diet Objective - Constitutional Vitals: Vital Signs - 12hr 06/11/18 06/11/18 06/11/18 05:44 10:22 11:31 Temperature 97.8 F 99.3 F Pulse Rate 76 69 Respiratory 20 16 Rate Blood Pressure 129/66 123/76 O2 Sat by Pulse 97 95 98 Oximetry General appearance: Present: mild distress, well-nourished - EENT Eyes: PERRL, EOM intact ENT: hearing intact, clear oral mucosa Ears: bilateral: normal - Neck Neck: supple, normal ROM - Respiratory Respiratory effort: normal Respiratory: bilateral: CTA - Cardiovascular Rhythm: regular Heart Sounds: Present: S1 & S2. Absent: gallop, rub Extremities: pulses intact, No edema, normal color, Full ROM - Gastrointestinal General gastrointestinal: Present: soft, tender (rt lumber region), non- distended, normal bowel sounds - Integumentary Integumentary: clear, warm, dry - Musculoskeletal Musculoskeletal: 1, strength equal bilaterally - Neurologic Neurologic: moves all extremities - Psychiatric Psychiatric: memory intact, appropriate mood/affect, intact judgment & insight - Labs CBC & Chem 7: 06/12/18 10:59 06/12/18 10:59 Labs: Abnormal lab results 06/10/18 06/10/18 06/10/18 Range/Units 11:03 13:38 16:44 WBC 17.6 H (4.5-11.0) K/mm3 RBC 5.14 H (3.65-5.03) M/mm3 Hgb 9.8 L (10.1-14.3) gm/dl MCV 63 L (79-97) fl MCH 19 L (28-32) pg RDW 18.7 H (13.2-15.2) % Seg Neuts % (Manual) 96.0 H (40.0-70.0) % Lymphocytes % (Manual) 2.0 L (13.4-35.0) % Seg Neutrophils # Man 16.9 H (1.8-7.7) K/mm3 Lymphocytes # (Manual) 0.4 L (1.2-5.4) K/mm3 Potassium 3.3 L (3.6-5.0) mmol/L Carbon Dioxide 21 L (22-30) mmol/L Creatinine (0.7-1.2) mg/dL Glucose 130 H (65-100) mg/dL Ur Specific [place] 1.035 H (1.003-1.030) 06/11/18 06/11/18 Range/Units 09:42 09:42 WBC 20.0 H (4.5-11.0) K/mm3 RBC 5.07 H (3.65-5.03) M/mm3 Hgb 9.8 L (10.1-14.3) gm/dl MCV 63 L (79-97) fl MCH 19 L (28-32) pg RDW 18.5 H (13.2-15.2) % Seg Neuts % (Manual) (40.0-70.0) % Lymphocytes % (Manual) (13.4-35.0) % Seg Neutrophils # Man (1.8-7.7) K/mm3 Lymphocytes # (Manual) (1.2-5.4) K/mm3 Potassium (3.6-5.0) mmol/L Carbon Dioxide (22-30) mmol/L Creatinine 1.3 H (0.7-1.2) mg/dL Glucose 112 H (65-100) mg/dL Ur Specific [place] (1.003-1.030) - Imaging and cardiology Chest x-ray: report reviewed CT scan - abdomen: report reviewed CT Scan - head: report reviewed
[2018-06-11] MEDS: MERREM/NS 500 MG/50 ML 500 MG/50 ML BAG IV SCH (12:00)
[2018-06-11] MEDS ORDERED: DULCOLAX PR PRN (13:50)
[2018-06-11] MEDS: PAXIL PO SCH (18:00)
[2018-06-11] MEDS: PHENERGAN PO PRN (21:39)
[2018-06-11] MEDS: LOVENOX SUB-Q SCH (21:40)
[2018-06-12] MEDS: MERREM/NS 500 MG/50 ML 500 MG/50 ML BAG IV SCH ×6 (00:15→23:24)
[2018-06-12] MEDS: D5NS 1,000 ML IV SCH ×2 (00:15→14:44)
[2018-06-12] MEDS: VANCOMYCIN/NS 1 GM/250 ML 1 GM/250 ML BAG IV SCH (03:45)
[2018-06-12] MEDS: TYLENOL PO PRN (08:44)
[2018-06-12 12:08] LABS: Basophils # (Auto) 0.1 K/mm3 (0.0-0.1); Basophils % (Auto) 0.6 % (0.0-1.8); Eosinophils % (Auto) 0.2 % (0.0-4.3); Hematocrit 31.4 % (30.3-42.9); Hemoglobin 9.7 gm/dl (10.1-14.3); Lymphocytes # (Auto) 2.8 K/mm3 (1.2-5.4); Lymphocytes % (Auto) 18.7 % (13.4-35.0); Mean Corpuscular HGB Conc 31 % (30-34); Mean Corpuscular Hemoglobin 19 pg (28-32); Mean Corpuscular Volume 63 fl (79-97); Monocytes # (Auto) 1.4 K/mm3 (0.0-0.8); Monocytes % (Auto) 9.4 % (0.0-7.3); Platelet Count 330 K/mm3 (140-440); Red Blood Count 4.99 M/mm3 (3.65-5.03); Red Cell Distribution Width 18.6 % (13.2-15.2)
[2018-06-12 12:21] LABS: Calcium 8.7 mg/dL (8.4-10.2)
[2018-06-12] MEDS: PAXIL PO SCH (13:07)
[2018-06-12] MEDS: SODIUM CHLORIDE FLUSH SYRINGE 10 ML IV SCH ×2 (13:07→23:25)
--- NOTE | 2018-06-12 14:11 | Progress Note ---
Assessment and Plan / Sepsis, suspected on admission Sepsis Protocol: IV antibiotics, IVF resuscitation, negative blood cultures, cont to have high white count, will trend /Nephrolithiasis cont supportive care with iv fluid and pain meds. / Nicotine dependence smoking cessation counseling, supportive care. / Encephalopathy due to metabolic along with her psych history appears at baseline now CT head negative for acute intracranial change, treat sepsis, neuro checks, supportive care. /Nasopharyngeal cancer Outpatient ENT F/U care for evaluation of mass. /Schizoaffective disorder resumed prehospital medication, supportive care. mental health consult if needed / DVT prophylaxis SCD to bLE while in bed /GERD, start PPI Brief History: 53 y/o female with h/o COPD and schizoaffective disorder who is a very poor historian presented with c/o abdominal pain. She has been in the emergency department over 20 times for ambulatory complaints. CT abdomen/pelvis showed 1 mm calculus distal right UV junction with proximal hydronephrosis. Radiological data: CT abdomen/pelvis w contrast: 1 mm calculus distal right UV junction with proximal hydronephrosis. CXR: 1. No evidence of an acute pulmonary process. Head CT: 1. Abnormal soft tissue density in the posterior nasopharynx in the midline and on the right in the region of fossa of Rosenmuller. This is concerning for a mass in this region. Referral to ENT for direct inspection and recommendation for further imaging. This may include a CT of the face/neck with IV contrast or MRI of the face/neck without and with gadolinium. 2. No evidence of an acute intracranial process, intracranial hemorrhage or mass effect. Subjective Date of service: 06/12/18 Interval history: Pt seen and examined abdominal pain improved, no N/V today c/o heart burn Objective - Exam Narrative Exam: General appearance: Present: no distress, well-nourished - EENT Eyes: PERRL, EOM intact ENT: hearing intact, clear oral mucosa Ears: bilateral: normal - Neck Neck: supple, normal ROM - Respiratory Respiratory effort: normal Respiratory: bilateral: CTA - Cardiovascular Rhythm: regular Heart Sounds: Present: S1 & S2. Absent: gallop, rub Extremities: pulses intact, No edema, normal color, Full ROM - Gastrointestinal General gastrointestinal: Present: soft, nontender, non-distended, normal bowel sounds - Integumentary Integumentary: clear, warm, dry - Musculoskeletal Musculoskeletal: 1, strength equal bilaterally - Neurologic Neurologic: moves all extremities - Psychiatric Psychiatric: memory intact, appropriate mood/affect, intact judgment & insight - Constitutional Vitals: Vital Signs - 12hr 06/12/18 06/12/18 06:09 12:07 Temperature 98.8 F 98.8 F Pulse Rate 81 84 Respiratory 18 16 Rate Blood Pressure 106/72 98/63 O2 Sat by Pulse 93 99 Oximetry - Labs CBC & Chem 7: 06/12/18 10:59 06/12/18 10:59 Labs: Abnormal lab results 06/11/18 06/12/18 06/12/18 Range/Units 19:15 10:59 10:59 WBC 15.2 H (4.5-11.0) K/mm3 Hgb 9.7 L (10.1-14.3) gm/dl MCV 63 L (79-97) fl MCH 19 L (28-32) pg RDW 18.6 H (13.2-15.2) % [place] % (Auto) 9.4 H (0.0-7.3) % [place] # 1.4 H (0.0-0.8) K/mm3 Seg Neutrophils % 71.1 H (40.0-70.0) % Seg Neutrophils # 10.8 H (1.8-7.7) K/mm3 Potassium 3.4 L (3.6-5.0) mmol/L Glucose 103 H (65-100) mg/dL Valproic Acid < 2.8 L (50-100) ug/mL
[2018-06-12] MEDS: PHENERGAN PO PRN (18:13)
[2018-06-12] MEDS: LOVENOX SUB-Q SCH (23:22)
[2018-06-13] MEDS: D5NS 1,000 ML IV SCH (01:47)
[2018-06-13] MEDS: VANCOMYCIN/NS 1 GM/250 ML 1 GM/250 ML BAG IV SCH (04:44)
[2018-06-13] MEDS: MERREM/NS 500 MG/50 ML 500 MG/50 ML BAG IV SCH ×2 (06:32→13:17)
[2018-06-13 09:08] LABS: Basophils # (Auto) 0.1 K/mm3 (0.0-0.1); Basophils % (Auto) 0.8 % (0.0-1.8); Eosinophils # (Auto) 0.1 K/mm3 (0.0-0.4); Eosinophils % (Auto) 1.8 % (0.0-4.3); Hematocrit 29.4 % (30.3-42.9); Hemoglobin 9.1 gm/dl (10.1-14.3); Lymphocytes # (Auto) 2.1 K/mm3 (1.2-5.4); Lymphocytes % (Auto) 25.3 % (13.4-35.0); Mean Corpuscular HGB Conc 31 % (30-34); Mean Corpuscular Hemoglobin 20 pg (28-32); Mean Corpuscular Volume 63 fl (79-97); Monocytes # (Auto) 0.8 K/mm3 (0.0-0.8); Platelet Count 274 K/mm3 (140-440); Red Blood Count 4.65 M/mm3 (3.65-5.03); Red Cell Distribution Width 18.6 % (13.2-15.2)
[2018-06-13 09:35] LABS: Calcium 8.4 mg/dL (8.4-10.2)
[2018-06-13] MEDS ORDERED: PROTONIX PO SCH (10:00)
[2018-06-13] MEDS: SODIUM CHLORIDE FLUSH SYRINGE 10 ML IV SCH (10:56)
[2018-06-13] MEDS: PAXIL PO SCH ×2 (10:56→11:02)
--- NOTE | 2018-06-13 11:01 | Consultation ---
History of Present Illness - Reason for Consult Consult date: 06/13/18 hydronephrosis - History of Present Illness Patient presented initially with a history of flank pain and a trace amount of hydronephrosis. She was found to have a 1 mm stone in the distal ureter. Since then, the patient has improved significantly clinically and she describes the passage of the stone out her urethra. Her white count has improved significantly. Past History Past Medical History: GERD, hypertension, seizures, stroke Past Surgical History: appendectomy, hysterectomy, bowel surgery Social history: , lives with family, smoking Family history: no significant family history (reviewed) Medications and Allergies Allergies Allergy/AdvReac Type Severity Reaction Status Date / Time codeine Allergy Rash Verified 10/13/17 21:24 levofloxacin [From Levaquin] Allergy Hives Verified 10/13/17 21:24 Penicillins Allergy Rash Verified 10/13/17 21:24 phenytoin sodium Allergy Rash Verified 10/13/17 21:24 [From Dilantin] phenytoin sodium extended Allergy Rash Verified 10/13/17 21:24 [From Dilantin] Sulfa (Sulfonamide Allergy Rash Verified 10/13/17 21:24 Antibiotics) Home Medications Medication Instructions Recorded Confirmed Last Taken Type Omeprazole [PriLOSEC] 40 mg PO QDAY #30 capsule. 12/09/15 04/08/16 12/28/15 09 :00 Rx Benzonatate [Tessalon Perles] 100 mg PO Q8HR #20 capsule 04/08/16 Unknown Rx Ibuprofen [Motrin] 800 mg PO Q8HR PRN #14 tablet 04/08/16 Unknown Rx PARoxetine [Paxil] 20 mg PO DAILY 04/08/16 04/08/16 Unknown History Benzonatate [Tessalon Perles] 100 mg PO Q8HR PRN #30 capsule 04/14/16 Unknown Rx Albuterol Sulfate [Proair 90 mcg IH Q4HR PRN #2 aer.pow.ba 06/24/16 Unknown Rx Respiclick] Phenylephrine/Dm/Acetaminop/GG 20 ml PO Q4HR #180 ml 06/24/16 Unknown Rx [Mucinex Xspq-Ppj-Ncecztfyvt Lq] predniSONE [Deltasone] 50 mg PO QDAY #5 tab 06/24/16 Unknown Rx Azithromycin [Zithromax TAB] 500 mg PO QDAY #5 tablet 09/04/16 Unknown Rx traMADol [Ultram] 50 mg PO Q6HR PRN #20 tablet 09/04/16 Unknown Rx ALBUTEROL Inhaler [Proair] 2 puff IH QID PRN #1 inhalation 07/14/17 Unknown Rx Azithromycin [Zithromax Z-FREDDY] 0 mg PO DAILY #6 tab 07/14/17 Unknown Rx Fluconazole [Diflucan TAB] 150 mg PO ONCE #1 tablet 07/14/17 Unknown Rx Albuterol Sulfate [Ventolin HFA] 2 puff IH Q4H PRN #1 hfa.aer.ad 03/05/18 Unknown Rx Azithromycin [Zithromax Z-FREDDY] 250 mg PO QAM #1 packet 03/05/18 Unknown Rx Benzonatate [Tessalon Perles] 100 mg PO Q8HR PRN #30 capsule 03/05/18 Unknown Rx diphenhydrAMINE [Benadryl CAP] 25 mg PO QHS PRN #24 capsule 03/05/18 Unknown Rx ALBUTEROL NEB's [Proventil 0.083% 2.5 mg IH TID PRN #90 neb 03/26/18 Unknown Rx NEBS] Loratadine 10 mg PO DAILY 30 Days #30 capsule 03/26/18 Unknown Rx predniSONE [Deltasone] 3 tab PO QDAY 5 Days #15 tab 03/26/18 Unknown Rx Naproxen [Naprosyn] 500 mg PO BID #14 tablet 04/20/18 Unknown Rx Clotrimazole 1% [Lotrimin 1%] 1 gm TP BID PRN #1 tube 05/15/18 Unknown Rx Fluconazole [Diflucan TAB] 150 mg PO ONCE #1 tablet 05/15/18 Unknown Rx Active Meds: Active Medications Acetaminophen (Tylenol) 650 mg PO Q4H PRN PRN Reason: Pain MILD(1-3)/Fever >100.5/PAVON Last Admin: 06/12/18 08:44 Dose: 650 mg Albuterol (Proventil) 2.5 mg IH Q4HRT PRN PRN Reason: Shortness Of Breath Bisacodyl (Dulcolax) 10 mg AL QDAY PRN PRN Reason: Constipation Last Admin: 06/12/18 08:58 Dose: 10 mg Divalproex Sodium (Depakote Dr) 500 mg PO BID MAYA Last Admin: 06/13/18 10:56 Dose: 500 mg Enoxaparin Sodium (Lovenox) 40 mg SUB-Q QDAY@2200 [facility] Last Admin: 06/12/18 23:22 Dose: Not Given Vancomycin HCl (Vancomycin/Ns 1 Gm/250 Ml) 1 gm in 250 mls @ 166.667 mls/hr IV Q24H [facility] Last Admin: 06/13/18 04:44 Dose: 166.667 mls/hr Meropenem (Merrem/Ns 500 Mg/50 Ml) 500 mg in 50 mls @ 50 mls/hr IV Q6HR [facility] Last Admin: 06/13/18 06:32 Dose: 50 mls/hr Dextrose/Sodium Chloride (D5ns) 1,000 mls @ 100 mls/hr IV DIRECT [facility] Last Admin: 06/13/18 01:47 Dose: 100 mls/hr Morphine Sulfate (Morphine) 2 mg IV Q3H PRN PRN Reason: Pain , Severe (7-10) Last Admin: 06/11/18 13:52 Dose: 2 mg Ondansetron HCl (Zofran) 4 mg IV Q8H PRN PRN Reason: Nausea And Vomiting Last Admin: 06/11/18 17:06 Dose: 4 mg Pantoprazole Sodium (Protonix) 40 mg PO QDAY [facility] Last Admin: 06/13/18 10:56 Dose: 40 mg Paroxetine HCl (Paxil) 20 mg PO DAILY [facility] Last Admin: 06/13/18 10:56 Dose: 20 mg Promethazine HCl (Phenergan) 25 mg PO Q6H PRN PRN Reason: Nausea And Vomiting Last Admin: 06/12/18 18:13 Dose: 25 mg Sodium Chloride (Sodium Chloride Flush Syringe 10 Ml) 10 ml IV BID [facility] Last Admin: 06/13/18 10:56 Dose: 10 ml Sodium Chloride (Sodium Chloride Flush Syringe 10 Ml) 10 ml IV PRN PRN PRN Reason: LINE FLUSH Vancomycin HCl (Vancomycin Pharmacy To Dose) 1 each IV PKCONSULT [facility]; Protocol Review of Systems All systems: negative Exam - Constitutional Vitals: Temp Pulse Resp BP Pulse Ox 98.3 F 69 18 119/74 100 06/13/18 00:04 06/13/18 00:04 06/13/18 00:04 06/13/18 00:04 06/13/18 00:04 General appearance: Present: no acute distress, obese - EENT Eyes: Present: PERRL, EOM intact ENT: hearing intact - Neck Neck: Present: supple - Respiratory Respiratory effort: normal - Extremities Extremities: no ischemia - Abdominal General gastrointestinal: Present: deferred Female genitourinary: Present: deferred - Rectal Rectal Exam: deferred - Psychiatric Psychiatric: appropriate mood/affect, cooperative Results - Labs CBC & Chem 7: 06/13/18 08:51 06/13/18 08:51 Labs: Abnormal lab results 06/12/18 06/12/18 06/13/18 Range/Units 10:59 10:59 08:51 WBC 15.2 H (4.5-11.0) K/mm3 Hgb 9.7 L 9.1 L (10.1-14.3) gm/dl Hct 29.4 L (30.3-42.9) % MCV 63 L 63 L (79-97) fl MCH 19 L 20 L (28-32) pg RDW 18.6 H 18.6 H (13.2-15.2) % [place] % (Auto) 9.4 H 9.0 H (0.0-7.3) % [place] # 1.4 H (0.0-0.8) K/mm3 Seg Neutrophils % 71.1 H (40.0-70.0) % Seg Neutrophils # 10.8 H (1.8-7.7) K/mm3 Potassium 3.4 L (3.6-5.0) mmol/L Glucose 103 H (65-100) mg/dL 06/13/18 Range/Units 08:51 WBC (4.5-11.0) K/mm3 Hgb (10.1-14.3) gm/dl Hct (30.3-42.9) % MCV (79-97) fl MCH (28-32) pg RDW (13.2-15.2) % [place] % (Auto) (0.0-7.3) % [place] # (0.0-0.8) K/mm3 Seg Neutrophils % (40.0-70.0) % Seg Neutrophils # (1.8-7.7) K/mm3 Potassium 3.5 L (3.6-5.0) mmol/L Glucose 106 H (65-100) mg/dL - Imaging and Cardiology CT scan - abdomen: image reviewed Assessment and Plan The patient's symptoms are consistent with passing a small kidney stone. Her symptoms on presentation have resolved. From an interventional radiology standpoint, the patient may be discharged home at any time.
--- NOTE | 2018-06-13 14:41 | Discharge Summary ---
Providers - Providers Date of Admission: 06/10/18 16:41 Date of discharge: 06/13/18 Attending physician: NIKKIE ERICKSON 06/10/18 16:27 Consult to Physician [CONS] Urgent Comment: Consulting Provider: EDWIGE LICEA Physician Instructions: Reason For Exam: hydronephrosis, abd pain Primary care physician: DRY SANDER Hospitalization Condition: Stable Hospital course: Brief History: 53 y/o female with h/o COPD and schizoaffective disorder who is a very poor historian presented with c/o abdominal pain. She has been in the emergency department over 20 times for ambulatory complaints. CT abdomen/pelvis showed 1 mm calculus distal right UV junction with proximal hydronephrosis. discharge diagnosis: / SIRS, likely passing a small renal stone Sepsis, suspected on admission Sepsis Protocol initiated: IV antibiotics, IVF resuscitation, negative blood/urine cultures, white count trended down /Nephrolithiasis mx with supportive care with iv fluid and pain meds. / Nicotine dependence smoking cessation counseling, supportive care. / Encephalopathy due to metabolic along with her psych history appears at baseline now CT head negative for acute intracranial change, treat sepsis, neuro checks, supportive care. /Nasopharyngeal cancer Outpatient ENT F/U care for evaluation of mass. /Schizoaffective disorder resumed prehospital medication, supportive care. mental health consult if needed / DVT prophylaxis SCD to bLE while in bed /GERD, start PPI Radiological data: CT abdomen/pelvis w contrast: 1 mm calculus distal right UV junction with proximal hydronephrosis. CXR: 1. No evidence of an acute pulmonary process. Head CT: 1. Abnormal soft tissue density in the posterior nasopharynx in the midline and on the right in the region of fossa of [place]muller. This is concerning for a mass in this region. Referral to ENT for direct inspection and recommendation for further imaging. This may include a CT of the face/neck with IV contrast or MRI of the face/neck without and with gadolinium. 2. No evidence of an acute intracranial process, intracranial hemorrhage or mass effect. Objective - Exam Narrative Exam: General appearance: Present: no distress, well-nourished - EENT Eyes: PERRL, EOM intact ENT: hearing intact, clear oral mucosa Ears: bilateral: normal - Neck Neck: supple, normal ROM - Respiratory Respiratory effort: normal Respiratory: bilateral: CTA - Cardiovascular Rhythm: regular Heart Sounds: Present: S1 & S2. Absent: gallop, rub Extremities: pulses intact, No edema, normal color, Full ROM - Gastrointestinal General gastrointestinal: Present: soft, nontender, non-distended, normal bowel sounds - Integumentary Integumentary: clear, warm, dry - Musculoskeletal Musculoskeletal: 1, strength equal bilaterally - Neurologic Neurologic: moves all extremities - Psychiatric Psychiatric: memory intact, appropriate mood/affect, intact judgment & insight Disposition: DC-01 TO HOME OR SELFCARE Time spent for discharge: 34 minutes Core Measure Documentation - Palliative Care Palliative Care/ Comfort Measures: Not Applicable - Core Measures Any of the following diagnoses?: none Exam - Constitutional Vitals: Temp Pulse Resp BP Pulse Ox 98.3 F 69 18 119/74 100 06/13/18 00:04 06/13/18 00:04 06/13/18 00:04 06/13/18 00:04 06/13/18 00:04 Plan Activity: advance as tolerated Weight Bearing Status: Weight Bear as Tolerated Diet: low fat, low salt Additional Instructions: f/u with ENT Dr Loyd on one to two weeks for nasopharyngeal mass. Follow up with: PRIMARY CARE, [Primary Care Provider] - 3-5 Days Prescriptions: Docusate Sodium [Colace] 100 mg PO BID PRN #60 capsule PRN Reason: Constipation
[2018-06-13] MEDS ORDERED: FLEET PR ONE (15:00)
[2018-06-13 16:07] VITALS: BP 111/79
== END 2018-06-13 16:00 | disposition home or self-care (01) | DRG 871 ==
LOC: ED 10:46 → 3A 16:41
PROVIDERS: ADMIT Internal Medicine; ATTEND Internal Medicine
DX: A41.9 Sepsis, unspecified organism (principal); G93.41 Metabolic encephalopathy; F17.213 Nicotine dependence, cigarettes, with withdrawal; F25.0 Schizoaffective disorder, bipolar type; C11.9 Malignant neoplasm of nasopharynx, unspecified; J44.9 Chronic obstructive pulmonary disease, unspecified; N13.2 Hydronephrosis with renal and ureteral calculous obstruction; K21.9 Gastro-esophageal reflux disease without esophagitis; G40.909 Epilepsy, unspecified, not intractable, without status epilepticus; E11.9 Type 2 diabetes mellitus without complications; I10 Essential (primary) hypertension; Z90.49 Acquired absence of other specified parts of digestive tract; Z71.6 Tobacco abuse counseling; Z86.73 Personal history of transient ischemic attack (TIA), and cerebral infarction without residual deficits; Z90.710 Acquired absence of both cervix and uterus; Z88.1 Allergy status to other antibiotic agents; Z88.5 Allergy status to narcotic agent; Z88.0 Allergy status to penicillin; Z88.2 Allergy status to sulfonamides; Z79.899 Other long term (current) drug therapy
CPT/HCPCS: 36415; 70450; 71045; 74177; 80048; 80074; 80164; 80307; 81001; 82140; 82150; 82550; 82553; 83690; 83735; 83880; 84484; 85007; 85025; 85027; 85610; 85730; 86850; 86900; 86901; 87040; 87086; 93005; 93010; 96361; 96365; 96375; 99291; 99292; 99406; C9113; J1650; J2185; J2270; J2405; J3370; J7030; J7040; J7042; Q0169; Q9967

== ENCOUNTER 2018-07-19 11:19 | Emergency (ER) | payer MEDICAID ==
[2018-07-19 11:45] VITALS: BP 122/88
== END 2018-07-19 12:25 | disposition left against medical advice (07) ==
LOC: ED 11:19
DX: R21 Rash and other nonspecific skin eruption (principal); Z53.21 Procedure and treatment not carried out due to patient leaving prior to being seen by health care provider

== ENCOUNTER 2019-01-01 21:06 | Emergency (ER) | payer MEDICAID ==
--- NOTE | 2019-01-01 22:04 | Emergency Department Report ---
Blank Doc - Documentation Documentation: This is a 53-year-old female that presents with right flank pain with dysuria. Denies fever. Denies any other urinary symptoms. Denies any radiation of pain. Denies any other compilations/symptoms. PMH: Kidney stone, CVA, DM, HTN, GERD, SZ This initial assessment diagnostic orders/clinical plan/treatment(s) is/are subject to change based on patient's health status, clinical progression and re- assessment by fellow clinical providers in the ED. Further treatment and workup at subsequent clinical providers discretion. Patient/guardians urged not to elope from ED s their condition may be serious if not clinically assessed and managed. Initial orders include: 1-patient sent to [facility] for further evaluation and treatment. 2- Labs 3- UA
[2019-01-01 22:41] LABS: Basophils # (Auto) 0.1 K/mm3 (0.0-0.1); Basophils % (Auto) 0.5 % (0.0-1.8); Eosinophils # (Auto) 0.2 K/mm3 (0.0-0.4); Eosinophils % (Auto) 1.4 % (0.0-4.3); Lymphocytes # (Auto) 3.2 K/mm3 (1.2-5.4); Lymphocytes % (Auto) 25.7 % (13.4-35.0); Mean Corpuscular HGB Conc 30 % (30-34); Monocytes # (Auto) 0.8 K/mm3 (0.0-0.8); Monocytes % (Auto) 6.4 % (0.0-7.3); Platelet Count 390 K/mm3 (140-440); Red Blood Count 4.85 M/mm3 (3.65-5.03); Red Cell Distribution Width 18.1 % (13.2-15.2)
[2019-01-01 22:54] LABS: Hematocrit 29.9 % (30.3-42.9); Hemoglobin 8.9 gm/dl (10.1-14.3); Mean Corpuscular Volume 62 fl (79-97)
[2019-01-01 23:01] LABS: Alanine Aminotransferase 12 units/L (7-56); BUN/Creatinine Ratio 20; Blood Urea Nitrogen 18 mg/dL (7-17); Calcium 9.2 mg/dL (8.4-10.2); Hemolysis Index 1
[2019-01-01 23:55] LABS: Bilirubin,Urine NEG (Negative); Blood,Urine NEG (Negative); Color,Urine Yellow (Yellow); Mucus,Urine 1+ /HPF; Protein,Urine <15 mg/dL mg/dL (Negative)
[2019-01-02] MEDS ORDERED: ZOFRAN IV STA (01:59)
[2019-01-02] MEDS ORDERED: NACL 0.9% 1000 ML 1,000 ML IV ONE (01:59)
[2019-01-02] MEDS ORDERED: TORADOL IV STA (01:59)
[2019-01-02] MEDS ORDERED: ZOFRAN ODT ONE (02:22)
[2019-01-02] MEDS ORDERED: ZOFRAN ODT PO ONE (02:24)
--- NOTE | 2019-01-02 03:06 | Cat Scan Report ---
FINAL REPORT PROCEDURE: CT ABDOMEN PELVIS WO CON TECHNIQUE: Computerized axial tomography of the abdomen and pelvis was performed without intravenous contrast. This study is performed without intravascular contrast material and its sensitivity for ab dominal and pelvic pathology, including neoplasms, inflammation, abscess, free fluid, thrombosis, art erial dissection and infarction, is reduced compared with a contrast enhanced study. HISTORY: Lower ABD Pain, RT LOWER BACK PAIN COMPARISON: 01/27/2017 FINDINGS: Visualized lower thorax: No significant abnormality. Liver: Normal size and attenuation. Spleen: Normal size and attenuation. Gallbladder and biliary system: Normal. Pancreas: Normal. Adrenals: Normal. Kidneys: Normal. GI tract: No obstruction. The cecum, appendix region and colon are normal.. Lymph nodes and mesentery: Normal. Vasculature: Normal. Bladder: Normal. Reproductive organs: Uterus is absent. No pelvic masses. Peritoneum: No free fluid. Musculoskeletal structures: No significant abnormality. Other: None. IMPRESSION: There is no evidence of an acute process within the abdomen or pelvis..
--- NOTE | 2019-01-02 04:00 | Emergency Department Report ---
ED Abdominal Pain HPI - General Chief Complaint: Back Pain/Injury Stated Complaint: LOWER BACK PAIN Time Seen by Provider: 01/01/19 22:02 Source: patient Mode of arrival: Ambulatory Limitations: No Limitations - History of Present Illness Initial Comments: A 53-year-old female with past medical history of iron deficiency anemia ,depression, kidney stones, peptic ulcer disease, diabetes, acid reflux, hypertension. Presents presents emergency department complaining of a one-day history of right lower back pain associated with dysuria. States she had a similar episode about 4 or 5 months ago and she is wondering if she may have the same thing having had a kidney stone at that time. She did experience some decreased urination and some increased suprapubic pressure with urination reports no hematuria, burning with urination, vaginal discharge, fever, chills, sweats, chest pain, palpitations, hemoptysis, hematemesis, hematochezia, or trauma. MD Complaint: abdominal pain Location: suprapubic Radiation: suprapubic Migration to: no migration Severity: mild Severity scale (0 -10): 6 Quality: aching, burning Consistency: constant Improves With: nothing Worsens With: nothing Associated Symptoms: nausea, dysuria. denies: diarrhea, constipation, hematemesis, melena, hematuria, anorexia - Related Data Previous Rx's Medication Instructions Recorded Last Taken Type traMADol [Ultram 50 MG tab] 50 mg PO Q6HR PRN #20 tablet 09/04/16 Unknown Rx Depakote 500 mg PO BID #60 06/13/18 Unknown Rx Docusate Sodium [Colace] 100 mg PO BID PRN #60 capsule 06/13/18 Unknown Rx Pantoprazole [Protonix TAB] 40 mg PO QDAY #30 tablet 06/13/18 Unknown Rx Ciprofloxacin HCl [Cipro] 500 mg PO BID #14 tablet 01/02/19 Unknown Rx Phenazopyridine [Pyridium] 200 mg PO TID #9 tab 01/02/19 Unknown Rx Allergies Allergy/AdvReac Type Severity Reaction Status Date / Time codeine Allergy Rash Verified 10/13/17 21:24 Iodinated Contrast- Oral and Allergy Hives Verified 01/02/19 02:29 IV Dye levofloxacin [From Levaquin] Allergy Hives Verified 10/13/17 21:24 Penicillins Allergy Rash Verified 10/13/17 21:24 phenytoin sodium Allergy Rash Verified 10/13/17 21:24 [From Dilantin] phenytoin sodium extended Allergy Rash Verified 10/13/17 21:24 [From Dilantin] Sulfa (Sulfonamide Allergy Rash Verified 10/13/17 21:24 Antibiotics) ED Review of Systems ROS: Stated complaint: LOWER BACK PAIN Other details as noted in HPI Constitutional: denies: chills, fever Eyes: denies: eye pain, eye discharge, vision change ENT: denies: ear pain, throat pain Respiratory: denies: cough, shortness of breath, wheezing Cardiovascular: denies: chest pain, palpitations Endocrine: no symptoms reported Gastrointestinal: abdominal pain. denies: nausea, diarrhea Genitourinary: denies: urgency, dysuria, discharge Musculoskeletal: denies: back pain, joint swelling, arthralgia Skin: denies: rash, lesions Neurological: denies: headache, weakness, paresthesias Psychiatric: denies: anxiety, depression Hematological/Lymphatic: denies: easy bleeding, easy bruising ED Past Medical Hx - Past Medical History Hx Hypertension: Yes Hx CVA: Yes Hx Diabetes: Yes Hx GERD: Yes Hx Seizures: Yes Hx Kidney Stones: Yes Hx Psychiatric Treatment: Yes (depression) Hx Asthma: No Hx COPD: No Additional medical history: h/o ulcers. vertigo - Surgical History Hx Appendectomy: Yes Additional Surgical History: colon resection, sinus tumors removal. hysterectomy - Social History Smoking Status: Former Smoker Substance Use Type: None - Medications Home Medications: Home Medications Medication Instructions Recorded Confirmed Last Taken Type traMADol [Ultram 50 MG tab] 50 mg PO Q6HR PRN #20 tablet 09/04/16 06/13/18 Unknown Rx Depakote 500 mg PO BID #60 06/13/18 Unknown Rx Docusate Sodium [Colace] 100 mg PO BID PRN #60 capsule 06/13/18 Unknown Rx Pantoprazole [Protonix TAB] 40 mg PO QDAY #30 tablet 06/13/18 Unknown Rx Ciprofloxacin HCl [Cipro] 500 mg PO BID #14 tablet 01/02/19 Unknown Rx Phenazopyridine [Pyridium] 200 mg PO TID #9 tab 01/02/19 Unknown Rx ED Physical Exam - General Limitations: No Limitations General appearance: alert, in no apparent distress - Head Head exam: Present: atraumatic, normocephalic, normal inspection - Eye Eye exam: Present: normal appearance, PERRL. Absent: scleral icterus, conjunctival injection, periorbital swelling, periorbital tenderness Pupils: Present: normal accommodation - ENT ENT exam: Present: normal exam, normal orophraynx, mucous membranes moist, TM's normal bilaterally, normal external ear exam - Neck Neck exam: Present: normal inspection, full ROM. Absent: tenderness, meningismus, lymphadenopathy - Respiratory Respiratory exam: Present: normal lung sounds bilaterally. Absent: respiratory distress, wheezes, rales, rhonchi, chest wall tenderness, accessory muscle use - Cardiovascular Cardiovascular Exam: Present: regular rate, normal rhythm. Absent: systolic murmur, diastolic murmur, rubs, gallop - GI/Abdominal GI/Abdominal exam: Present: soft, normal bowel sounds. Absent: guarding, rebound, hyperactive bowel sounds, hypoactive bowel sounds, bruit, pulsatile mass, hernia - Extremities Exam Extremities exam: Present: normal inspection - Back Exam Back exam: Present: normal inspection, CVA tenderness (R) - Neurological Exam Neurological exam: Present: alert, oriented X3, CN II-XII intact - Psychiatric Psychiatric exam: Present: normal affect, normal mood - Skin Skin exam: Present: warm, dry, intact, normal color. Absent: rash ED Course Vital Signs 01/01/19 01/01/19 01/02/19 21:17 22:03 01:20 Temperature 97.8 F 97.8 F Pulse Rate 101 H 106 H 82 Respiratory 18 18 Rate Blood Pressure 146/87 146/87 126/84 O2 Sat by Pulse 98 98 99 Oximetry ED Medical Decision Making - Lab Data Result diagrams: 01/01/19 22:10 01/01/19 22:10 Critical care attestation.: If time is entered above; I have spent that time in minutes in the direct care of this critically ill patient, excluding procedure time. ED Disposition Clinical Impression: Abdominal pain Disposition: DC-01 TO HOME OR SELFCARE Is pt being admited?: No Does the pt Need Aspirin: No Condition: Stable Instructions: Abdominal Pain (ED), Flank Pain (ED) Prescriptions: Ciprofloxacin HCl [Cipro] 500 mg PO BID #14 tablet Phenazopyridine [Pyridium] 200 mg PO TID #9 tab Referrals: SYDNEE BARBOZA [Primary Care Provider] - 3-5 Days
[2019-01-02 07:37] VITALS: BP 136/82
== END 2019-01-02 04:27 | disposition home or self-care (01) ==
LOC: ED 21:06
DX: R10.31 Right lower quadrant pain (principal); I10 Essential (primary) hypertension; E11.9 Type 2 diabetes mellitus without complications; K21.9 Gastro-esophageal reflux disease without esophagitis; F32.9 Major depressive disorder, single episode, unspecified; Z87.442 Personal history of urinary calculi; Z90.49 Acquired absence of other specified parts of digestive tract; Z90.710 Acquired absence of both cervix and uterus; Z87.891 Personal history of nicotine dependence; Z88.5 Allergy status to narcotic agent; Z88.1 Allergy status to other antibiotic agents; Z91.041 Radiographic dye allergy status; Z88.0 Allergy status to penicillin; Z88.2 Allergy status to sulfonamides
CPT/HCPCS: 36415; 74176; 80053; 81001; 85025; 99284; J1885; J2405; J7030; Q0162

== ENCOUNTER 2019-02-17 17:52 | Emergency (ER) | payer MEDICAID ==
[2019-02-17 17:58] VITALS: BP 138/88
--- NOTE | 2019-02-17 18:03 | Emergency Department Report ---
Chief Complaint: Abdominal Pain Stated Complaint: DIARRHEA/NAUSEA Time Seen by Provider: 02/17/19 18:00 - HPI History of Present Illness: DIARRHEA FOR 3 DAYS NO BLOODY STOOL NO FEVER NO ABD PAIN NAUSEA NO VOMITING HOME RX SZ MED- DONT KNOW CAUSE GERD MED DR POE PCP PS BOWEL SURGERY DETAILS UNKNOWN HYSTERECTOMY COLONOSCOPY 1 Y AGO LIVES WITH FAMILY ALLERGY PCN SULFA DYE CODEINE MSE COMPLETED - Exam Vital Signs: Vital Signs 02/17/19 17:57 Temperature 99.1 F Pulse Rate 93 H Respiratory 16 Rate Blood Pressure 138/88 [Right] O2 Sat by Pulse 98 Oximetry MSE screening note: Focused history and physical exam performed. Due to findings the following was ordered: ED Disposition for MSE Condition: Stable Instructions: Abdominal Pain (ED)
[2019-02-17 18:19] LABS: Basophils # (Auto) 0.1 K/mm3 (0.0-0.1); Basophils % (Auto) 0.5 % (0.0-1.8); Eosinophils # (Auto) 0.2 K/mm3 (0.0-0.4); Eosinophils % (Auto) 1.6 % (0.0-4.3); Hematocrit 30.6 % (30.3-42.9); Hemoglobin 9.4 gm/dl (10.1-14.3); Lymphocytes # (Auto) 1.5 K/mm3 (1.2-5.4); Lymphocytes % (Auto) 13.7 % (13.4-35.0); Mean Corpuscular HGB Conc 31 % (30-34); Monocytes # (Auto) 1.1 K/mm3 (0.0-0.8); Monocytes % (Auto) 9.5 % (0.0-7.3); Platelet Count 372 K/mm3 (140-440); Red Blood Count 5.14 M/mm3 (3.65-5.03); Red Cell Distribution Width 18.7 % (13.2-15.2)
[2019-02-17 18:23] LABS: Mean Corpuscular Volume 60 fl (79-97)
[2019-02-17 18:33] LABS: Alanine Aminotransferase 11 units/L (7-56); Albumin 4.2 g/dL (3.9-5); BUN/Creatinine Ratio 18; Blood Urea Nitrogen 16 mg/dL (7-17); Calcium 9.1 mg/dL (8.4-10.2); Hemolysis Index 2
[2019-02-17 18:35] LABS: Bilirubin,Direct < 0.2 mg/dL (0-0.2)
[2019-02-17] MEDS ORDERED: ZOFRAN ODT ONE (20:13)
[2019-02-17] MEDS ORDERED: ZOFRAN ODT PO ONE (20:22)
--- NOTE | 2019-02-17 22:39 | Emergency Department Report ---
ED General Adult HPI - General Chief complaint: Abdominal Pain Stated complaint: DIARRHEA/NAUSEA Time Seen by Provider: 02/17/19 18:00 Source: patient Mode of arrival: Ambulatory Limitations: No Limitations - History of Present Illness Initial comments: 3-year-old female presents to the emergency room for diarrhea 3 days. Patient also complains of allergies coughing and runny nose headache that began the same time. . Patient report of fever yesterday of 102. She denies any dysuria she says she does have pain with defecation to her lower back. She reported yesterday she felt faint she reports that she is out of her Depakote which she takes 500 mg 3 times a day for 6 days she reported to me that she had a seizure yesterday. She has a history of CVA diabetes. -: days(s) (3 diarrhea, 1 days seizure, one day of fever) Severity scale (0 -10): 7 Consistency: intermittent Improves with: none Associated Symptoms: fever/chills (yesterday), headaches, nausea/vomiting (no vomiting). denies: cough - Related Data Previous Rx's Medication Instructions Recorded Last Taken Type traMADol [Ultram 50 MG tab] 50 mg PO Q6HR PRN #20 tablet 09/04/16 Unknown Rx Docusate Sodium [Colace] 100 mg PO BID PRN #60 capsule 06/13/18 Unknown Rx Pantoprazole [Protonix TAB] 40 mg PO QDAY #30 tablet 06/13/18 Unknown Rx Ciprofloxacin HCl [Cipro] 500 mg PO BID #14 tablet 01/02/19 Unknown Rx Phenazopyridine [Pyridium] 200 mg PO TID #9 tab 01/02/19 Unknown Rx Depakote 500 mg PO BID #60 02/17/19 Unknown Rx Loperamide [Imodium] 2 mg PO Q2HR #8 capsule 02/17/19 Unknown Rx Allergies Allergy/AdvReac Type Severity Reaction Status Date / Time codeine Allergy Rash Verified 10/13/17 21:24 Iodinated Contrast- Oral and Allergy Hives Verified 01/02/19 02:29 IV Dye levofloxacin [From Levaquin] Allergy Hives Verified 10/13/17 21:24 Penicillins Allergy Rash Verified 10/13/17 21:24 phenytoin sodium Allergy Rash Verified 10/13/17 21:24 [From Dilantin] phenytoin sodium extended Allergy Rash Verified 10/13/17 21:24 [From Dilantin] Sulfa (Sulfonamide Allergy Rash Verified 10/13/17 21:24 Antibiotics) ED Review of Systems ROS: Stated complaint: DIARRHEA/NAUSEA Other details as noted in HPI Comment: All other systems reviewed and negative Constitutional: fever (today) Gastrointestinal: nausea, diarrhea Musculoskeletal: back pain (lower) Skin: denies: rash, lesions Neurological: denies: headache, weakness, paresthesias Psychiatric: denies: anxiety, depression Hematological/Lymphatic: denies: easy bleeding, easy bruising ED Past Medical Hx - Past Medical History Previous Medical History?: Yes Hx Hypertension: Yes Hx CVA: Yes Hx Diabetes: Yes Hx GERD: Yes Hx Seizures: Yes Hx Kidney Stones: Yes Hx Psychiatric Treatment: Yes (depression) Hx Asthma: No Hx COPD: No Additional medical history: h/o ulcers. vertigo - Surgical History Past Surgical History?: Yes Hx Appendectomy: Yes Additional Surgical History: colon resection, sinus tumors removal. hysterectomy - Social History Smoking Status: Unknown if ever smoked Substance Use Type: None - Medications Home Medications: Home Medications Medication Instructions Recorded Confirmed Last Taken Type traMADol [Ultram 50 MG tab] 50 mg PO Q6HR PRN #20 tablet 09/04/16 06/13/18 Un known Rx Docusate Sodium [Colace] 100 mg PO BID PRN #60 capsule 06/13/18 Unknown Rx Pantoprazole [Protonix TAB] 40 mg PO QDAY #30 tablet 06/13/18 Unknown Rx Ciprofloxacin HCl [Cipro] 500 mg PO BID #14 tablet 01/02/19 Unknown Rx Phenazopyridine [Pyridium] 200 mg PO TID #9 tab 01/02/19 Unknown Rx Depakote 500 mg PO BID #60 02/17/19 Unknown Rx Loperamide [Imodium] 2 mg PO Q2HR #8 capsule 02/17/19 Unknown Rx ED Physical Exam - General Limitations: No Limitations General appearance: alert - Head Head exam: Present: atraumatic - Eye Eye exam: Present: normal appearance - ENT ENT exam: Present: mucous membranes moist (z) ED Course Vital Signs 02/17/19 17:57 Temperature 99.1 F Pulse Rate 93 H Respiratory 16 Rate Blood Pressure 138/88 [Right] O2 Sat by Pulse 98 Oximetry ED Medical Decision Making - Lab Data Result diagrams: 02/17/19 18:12 02/17/19 18:12 Critical care attestation.: If time is entered above; I have spent that time in minutes in the direct care of this critically ill patient, excluding procedure time. ED Disposition Clinical Impression: Seizure Diarrhea Qualifiers: Diarrhea type: unspecified type Qualified Code(s): R19.7 - Diarrhea, unspecified Disposition: - TO HOME OR SELFCARE Is pt being admited?: No Does the pt Need Aspirin: No Condition: Stable Instructions: Abdominal Pain (ED), Loperamide (By mouth), Acute Diarrhea (ED) Additional Instructions: Please take medication as prescribed. Follow up with her primary care provider this week coming up to correctly take her Depakote. You will need a refill from him or your neurologist. Prescriptions: Depakote 500 mg PO BID #60 Loperamide [Imodium] 2 mg PO Q2HR #8 capsule
[2019-02-17 23:11] LABS: Bilirubin,Urine NEG (Negative); Blood,Urine NEG (Negative); Color,Urine Yellow (Yellow); Hyaline Casts,Urine 1 /LPF; Mucus,Urine 3+ /HPF; Protein,Urine <15 mg/dL mg/dL (Negative); Urobilinogen,Urine < 2.0 mg/dL (<2.0)
== END 2019-02-17 23:56 | disposition home or self-care (01) ==
LOC: ED 17:52
DX: R56.9 Unspecified convulsions (principal); R19.7 Diarrhea, unspecified; R09.89 Other specified symptoms and signs involving the circulatory and respiratory systems; I10 Essential (primary) hypertension; E11.9 Type 2 diabetes mellitus without complications; K21.9 Gastro-esophageal reflux disease without esophagitis; Z88.5 Allergy status to narcotic agent; Z88.0 Allergy status to penicillin; Z88.2 Allergy status to sulfonamides; Z91.041 Radiographic dye allergy status; Z87.442 Personal history of urinary calculi; Z90.49 Acquired absence of other specified parts of digestive tract; Z90.710 Acquired absence of both cervix and uterus
CPT/HCPCS: 36415; 80048; 80076; 81001; 83690; 85025; 99283; Q0162

== ENCOUNTER 2019-05-04 23:24 | Emergency (ER) | payer MEDICAID ==
[2019-05-05 00:18] LABS: Basophils # (Auto) 0.1 K/mm3 (0.0-0.1); Basophils % (Auto) 0.6 % (0.0-1.8); Eosinophils # (Auto) 0.1 K/mm3 (0.0-0.4); Eosinophils % (Auto) 0.8 % (0.0-4.3); Hematocrit 27.2 % (30.3-42.9); Hemoglobin 8.6 gm/dl (10.1-14.3); Lymphocytes # (Auto) 3.4 K/mm3 (1.2-5.4); Lymphocytes % (Auto) 27.3 % (13.4-35.0); Mean Corpuscular HGB Conc 32 % (30-34); Monocytes # (Auto) 0.9 K/mm3 (0.0-0.8); Monocytes % (Auto) 7.5 % (0.0-7.3); Platelet Count 388 K/mm3 (140-440); Red Blood Count 4.51 M/mm3 (3.65-5.03); Red Cell Distribution Width 19.3 % (13.2-15.2)
[2019-05-05 00:22] LABS: Mean Corpuscular Volume 61 fl (79-97)
[2019-05-05 00:31] LABS: Calcium 9.2 mg/dL (8.4-10.2)
[2019-05-05] MEDS ORDERED: LOVENOX SUB-Q ONE (01:00)
[2019-05-05] MEDS ORDERED: IBUPROFEN PO ONE (01:00)
--- NOTE | 2019-05-05 01:07 | Emergency Department Report ---
HPI - General Chief Complaint: Extremity Injury, Lower Time Seen by Provider: 05/05/19 00:41 - HPI HPI: 54-year-old C female presents to the emergency department with a 2 day history of pain in the right calf. She says it is a spasmodic like pain that will radiate down and then back up towards her hip. It is tender to palpation and the spasms occur with any type of movement of the foot or leg. She also feels that the right leg is slightly swollen. She denies any trauma. No recent travel, recent surgery or immobility. The patient went to see her doctor today, Dr. Fulton, regarding these symptoms and she says that he did some basic blood work and discharged her home, but told her to go to the emergency department if the pain continues or gets worse. She has not taken anything for her symptoms prior to presentation. The patient has a past medical history of diabetes, GERD, CVA, hypertension, depression, seizures. ED Past Medical Hx - Past Medical History Previous Medical History?: Yes Hx Hypertension: Yes Hx CVA: Yes Hx Diabetes: Yes Hx GERD: Yes Hx Seizures: Yes Hx Kidney Stones: Yes Hx Psychiatric Treatment: Yes (depression) Hx Asthma: No Hx COPD: No Additional medical history: h/o ulcers, DVT. vertigo - Surgical History Past Surgical History?: Yes Hx Appendectomy: Yes Additional Surgical History: colon resection, sinus tumors removal. hysterectomy - Social History Smoking Status: Former Smoker Substance Use Type: None - Medications Home Medications: Home Medications Medication Instructions Recorded Confirmed Last Taken Type traMADol [Ultram 50 MG tab] 50 mg PO Q6HR PRN #20 tablet 09/04/16 06/13/18 U nknown Rx Docusate Sodium [Colace] 100 mg PO BID PRN #60 capsule 06/13/18 Unknown Rx Pantoprazole [Protonix TAB] 40 mg PO QDAY #30 tablet 06/13/18 Unknown Rx Ciprofloxacin HCl [Cipro] 500 mg PO BID #14 tablet 01/02/19 Unknown Rx Phenazopyridine [Pyridium] 200 mg PO TID #9 tab 01/02/19 Unknown Rx Depakote 500 mg PO BID #60 02/17/19 Unknown Rx Loperamide [Imodium] 2 mg PO Q2HR #8 capsule 02/17/19 Unknown Rx ED Review of Systems ROS: Stated complaint: R LEG SPASMS Other details as noted in HPI Comment: All other systems reviewed and negative Constitutional: denies: chills, fever Eyes: denies: eye pain, vision change ENT: denies: ear pain, throat pain Respiratory: denies: cough, shortness of breath Cardiovascular: edema (right leg). denies: chest pain, palpitations Gastrointestinal: denies: abdominal pain, vomiting Genitourinary: denies: dysuria, discharge Musculoskeletal: myalgia. denies: back pain Skin: denies: rash, lesions Neurological: denies: headache, numbness Physical Exam - Physical Exam Vital Signs: Vital Signs 05/04/19 23:30 Temperature 98.3 F Pulse Rate 94 H Respiratory 20 Rate Blood Pressure 134/88 O2 Sat by Pulse 99 Oximetry Physical Exam: GENERAL: The patient is well-developed well-nourished. HENT: Normocephalic. Atraumatic. Patient has moist mucous membranes. EYES: Extraocular motions are intact. NECK: Supple. Trachea is midline. CHEST/LUNGS: Clear to auscultation. There is no respiratory distress noted. HEART/CARDIOVASCULAR: Regular. There is no tachycardia. There is no murmur. ABDOMEN: Abdomen is soft, nontender. Patient has normal bowel sounds. There is no abdominal distention. SKIN: There is mild nonpitting swelling of the distal right lower extremity. No warmth, erythema, fluctuance or rash seen. NEURO: The patient is awake, alert, and oriented. The patient is cooperative. The patient has no focal neurologic deficits. The patient has normal speech. MUSCULOSKELETAL: There is tenderness to palpation along the right calf but also occurs with movement of the right foot. Capillary refill less than 2 seconds and dorsalis pedis pulses +2 over 4 to the affected right lower extremity. ED Course Vital Signs 05/04/19 23:30 Temperature 98.3 F Pulse Rate 94 H Respiratory 20 Rate Blood Pressure 134/88 O2 Sat by Pulse 99 Oximetry ED Medical Decision Making - Lab Data Result diagrams: 05/05/19 00:00 05/05/19 00:00 - Medical Decision Making This patient presents with a one to 2 day history of some right lower leg pain, mostly around the calf. She describes it as a spasm that shoots down into the foot and then back up towards the hip. On examination she has reproducible pain to palpation of the calf and with movement of the foot. There is some mild swelling of the right leg when compared to the left but no warmth, rash, lesions, skin color change. The patient is neurovascularly intact with good distal pulses and sensation. Her compartments are soft. Labs are mostly unremarkable except for some mild renal insufficiency. Since I am unable to get a venous Doppler ultrasound during the evening, the patient was given a dose of Lovenox for empiric treatment of a DVT and has been set up to return later this morning for outpatient venous Doppler ultrasound. If positive, the patient will be redirected to the emergency department for further evaluation and treatment. If negative, the patient will follow up with her primary care physician. - Differential Diagnosis DVT, cellulitis, venous stasis, muscle spasms Critical Care Time: No Critical care attestation.: If time is entered above; I have spent that time in minutes in the direct care of this critically ill patient, excluding procedure time. ED Disposition Clinical Impression: Right leg pain, Right calf pain Disposition: TO HOME OR SELFCARE Is pt being admited?: No Condition: Stable Instructions: Arthralgia (ED) Additional Instructions: I am writing an order for you to return to the outpatient imaging center of the hospital later today to have a right lower extremity venous doppler ultrasound done to rule out a blood clot as the source of your leg pains. The ultrasound is positive for a blood clot, he was redirected back to the emergency department for further evaluation and treatment. If it is negative, you will need to follow up with your primary care physician. Return to the emergency Department with any worsening of your symptoms or with any acute distress. Referrals: SYDNEE BARBOZA MD [Primary Care Provider] - 3-5 Days Time of Disposition: 02:08
[2019-05-05 02:43] VITALS: BP 127/81
== END 2019-05-05 02:39 | disposition home or self-care (01) ==
LOC: ED 23:24
DX: M79.661 Pain in right lower leg (principal); K21.9 Gastro-esophageal reflux disease without esophagitis; E11.9 Type 2 diabetes mellitus without complications; Z88.5 Allergy status to narcotic agent; Z91.041 Radiographic dye allergy status; Z88.1 Allergy status to other antibiotic agents; Z86.73 Personal history of transient ischemic attack (TIA), and cerebral infarction without residual deficits; Z87.442 Personal history of urinary calculi; Z86.718 Personal history of other venous thrombosis and embolism; Z79.01 Long term (current) use of anticoagulants; Z90.49 Acquired absence of other specified parts of digestive tract; Z90.710 Acquired absence of both cervix and uterus; Z87.891 Personal history of nicotine dependence; Z79.899 Other long term (current) drug therapy
CPT/HCPCS: 36415; 80048; 85025; 96372; 99283; J1650

== ENCOUNTER 2019-05-05 10:00 | Outpatient (CLI) | payer MEDICAID ==
--- NOTE | 2019-05-05 14:09 | Vascular Lab Report ---
PROCEDURE: VL VENOUS DUPLEX LE RT TECHNIQUE: Duplex Doppler sonography of the right lower extremity. Amaya scale imaging with and witho ut compression, spectral waveform analysis with and without augmentation, and color flow Doppler were employed. HISTORY: rle pain/swelling COMPARISONS: None FINDINGS: Deep Venous Thrombus: None Superficial Venous Thrombus: None Venous valvular incompetence: None Soft tissue abnormality: None IMPRESSION: No evidence of deep venous thrombosis. This document is electronically signed by Lakshmi Baltazar MD., May 05 2019 02:07:25 PM ET
== END 2019-05-05 10:01 | disposition home or self-care (01) ==
LOC: VAS 10:00
PROVIDERS: ATTEND Emergency Medicine
DX: I82.401 Acute embolism and thrombosis of unspecified deep veins of right lower extremity (principal); I10 Essential (primary) hypertension; K21.9 Gastro-esophageal reflux disease without esophagitis; Z90.710 Acquired absence of both cervix and uterus

== ENCOUNTER 2019-08-09 15:30 | Outpatient (CLI) | payer MEDICAID ==
[2019-08-09 16:08] LABS: Bilirubin,Urine NEG (Negative); Blood,Urine NEG (Negative); Color,Urine Amber (Yellow); Hyaline Casts,Urine 3 /LPF; Mucus,Urine 2+ /HPF; Protein,Urine <15 mg/dL mg/dL (Negative); Urobilinogen,Urine < 2.0 mg/dL (<2.0)
== END 2019-08-09 15:31 | disposition home or self-care (01) ==
LOC: LAB 15:30
PROVIDERS: ATTEND Internal Medicine
DX: N39.0 Urinary tract infection, site not specified (principal); I10 Essential (primary) hypertension; K21.9 Gastro-esophageal reflux disease without esophagitis; Z90.710 Acquired absence of both cervix and uterus
CPT/HCPCS: 81001; 87086

== ENCOUNTER 2019-08-17 14:30 | Outpatient (CLI) | payer MEDICAID ==
--- NOTE | 2019-08-17 16:07 | Mammography Report ---
DIGITAL SCREENING MAMMOGRAM WITH CAD, 08/17/2019 INDICATION: Routine screening mammography. TECHNIQUE: Digital bilateral 2D mammography was obtained in the craniocaudal and mediolateral obliq ue projections. This examination was interpreted with the benefit of Computer-Aided Detection analysi s. COMPARISON: 02/12/2014 FINDINGS: Breast Density: There are scattered areas of fibroglandular density. There is no evidence of dominant mass, suspicious calcifications or architectural distortion in eithe r breast. IMPRESSION: No mammographic evidence of malignancy. Follow up recommendation: Routine yearly BI-RADS Category 1: Negative. A "normal" or negative report should not discourage follow up or biopsy of a clinically significant f inding. A written summary of these findings will be mailed to the patient. The patient will be entered into a mammography reporting system which will generate a reminder letter for the patient's next appointmen t at the appropriate interval. The [employer] recommends yearly mammograms starting at age 40 and continuing as l trip as a woman is in good health. Breast MRI is recommended for women with an approximate 20-25% or greater lifetime risk of breast cancer, including women with a strong family history of breast or ova hebert cancer or who have been treated for Hodgkin's disease. Signer Name: Lake Peraza MD Signed: 08/17/2019 4:03 PM Workstation Name: [id number]
== END 2019-08-17 14:31 | disposition home or self-care (01) ==
LOC: MAMMO 14:30
PROVIDERS: ATTEND Internal Medicine
DX: Z12.31 Encounter for screening mammogram for malignant neoplasm of breast (principal)
CPT/HCPCS: 77067

== ENCOUNTER 2019-08-30 09:48 | Day surgery (SDC) | payer MEDICAID ==
[2019-08-30] MEDS ORDERED: NACL 0.9% 1000 ML 1,000 ML IV SCH (11:00)
[2019-08-30] MEDS ORDERED: XYLOCAINE MPF 2% ONE (11:00)
[2019-08-30] MEDS ORDERED: DIPRIVAN 10 MG/ML IV ONE ×2 (11:36)
--- NOTE | 2019-08-30 11:56 | Anesthesia Consultation ---
Anesthesia Consult and Med Hx Date of service: 08/30/19 - Airway Anesthetic Teeth Evaluation: Good (some missing teeth) ROM Head & Neck: Adequate Mental/Hyoid Distance: Adequate Mallampati Class: Class II Intubation Access Assessment: Probably Good - Pre-Operative Health Status ASA Pre-Surgery Classification: ASA3 - Pulmonary Hx Smoking: Yes (SINCE AGE 15, QUIT RECENTLY 08/2019) Hx Asthma: No COPD: No Hx Pneumonia: No Hx Sleep Apnea: Yes - Cardiovascular System Hx Hypertension: Yes - Central Nervous System Hx Seizures: Yes CVA: Yes Hx Psychiatric Problems: Yes - Endocrine Hx End Stage Renal Disease: No Hx Non-Insulin Dependent Diabetes: Yes - Hematic Hx Anemia: Yes (IRON INFUSION 08/2019) - Other Systems Hx Alcohol Use: No Hx Substance Use: No Hx Cancer: No
--- NOTE | 2019-08-30 11:56 | Anesthesia Day of Surgery ---
Anesthesia Day of Surgery - Day of Surgery Patient Examined: Yes Patient H&P Reviewed: Yes Patient is NPO: Yes
--- NOTE | 2019-08-30 12:30 | Procedure Note ---
Date of procedure: 08/30/19 Pre-op diagnosis: GERD/H/O Colon Polyp/ Positive for Gene PALB2 Post-op diagnosis: other (Moderate.Erosive Esophagitis/Calabrese's Esophagus/Gastritis/No Colon Polyp or Diverticular Disease noted/Mild to Moderate Internal Hemorrhoid) Procedure: EGd with Biopsy and Colonoscopy Anesthesia: [facility] [place] Surgeon: WENDI LE Estimated blood loss: minimal Pathology: list Specimen disposition: to lab Condition: stable Disposition: same day (Treat with PPI and OTC hemorrhoidal medication. Avoid aspirin and NSAID for 4 days; otherwise resume home medication. Follow up in 1 to 2 weeks ([phone]).)
--- NOTE | 2019-08-30 12:52 | Operative Report ---
PROCEDURE: Esophagogastroduodenoscopy with biopsy. INDICATIONS: The patient is a 54-year-old white female who has a history of gene PALB2 that predisposes her to colon cancer and other cancers. She said to have prior history of colon polyp for which she has had surgery done. In addition, she has a history of Calabrese's esophagus. The EGD was done because of GERD symptoms and to assess the progression of her Calabrese's esophagus. DESCRIPTION OF PROCEDURE: Procedure was done after getting informed consent with MAC anesthesia. Instrument was passed through the hypopharynx into the esophagus, which showed moderate erosive esophagitis and mucosal changes suggestive endoscopically of Calabrese's esophagus. Photodocumentation and biopsies were obtained. The stomach showed gastritis. No additional pathology was noted on the retroverted view. Biopsy was done from the gastric antrum, gastric body and angular incisura to rule out for H. pylori and atrophic gastritis. The pylorus was patent. The duodenum in the first and second portion appeared normal. There was minimal bleeding from the biopsy sites. No complications associated with the procedure. ASSESSMENT: Gastroesophageal reflux disease symptoms, esophagitis, Calabrese's esophagus, gastritis. PLAN: To treat the patient with PPI and avoid aspirin and advised the patient to avoid aspirin and aspirin-related products for the next few days and to do a colonoscopy for further assessment for recurrence of any colon polyps. Procedure was done in the GI lab with assistance of the GI lab team, which included DIPTI Senior as well as Deepa bryant and with assistance of anesthesia. JOB# [id number] KELVIN/MUKESH
--- NOTE | 2019-08-30 12:56 | Operative Report ---
PROCEDURE: Colonoscopy. INDICATIONS: The patient is a 54-year-old white female who has a prior history of colon polyp. She also states that she has had partial colon resection done following a surgical misadventure that had led to a colon perforation while she was having a hysterectomy done. At that time, they had noted that she had a colon polyp. Repeat colonoscopy was done to make sure there was not any recurrence of any polyps. DESCRIPTION OF PROCEDURE: Procedure was done after getting informed consent with MAC anesthesia. Initial rectal exam was unremarkable. Instrument was passed through the rectum onto the cecum, which was identified with ileocecal valve and the appendiceal orifice. Visualization was fair to good. Cecum, ascending colon, transverse colon, descending colon, and sigmoid likewise showed normal mucosa. There was no evidence of any polyps, colitis or diverticular disease. The patient did have [id number] internal hemorrhoid on the retroverted view, which may have contributed through her hematochezia. There were no biopsies done. No bleeding associated with the procedure. No complications associated with the procedure. ASSESSMENT: History of colon polyp. No colon polyps noted at present. No diverticular disease, mild to moderate internal hemorrhoid. Plan is to treat the patient with [id number] hemorrhoidal medication. Treat the patient with PPI because of the upper endoscopic findings of esophagitis and gastritis. Await for the biopsy results. The patient has a history of Calabrese's esophagus and have the patient follow up in the office in 1-2 weeks' time. The procedure was done in the GI lab with assistance of the GI lab team, which included Patsy RESENDEZ as well as Deepa bryant and with assistance of anesthesia. JOB# [id number] KELVIN/MUKESH
[2019-08-30 13:06] VITALS: BP 106/66
== END 2019-08-30 09:49 | disposition home or self-care (01) ==
LOC: GIO 09:48
DX: Z12.11 Encounter for screening for malignant neoplasm of colon (principal); K64.8 Other hemorrhoids; K21.0 Gastro-esophageal reflux disease with esophagitis; K22.70 Barrett's esophagus without dysplasia; K29.70 Gastritis, unspecified, without bleeding; F31.9 Bipolar disorder, unspecified; G43.109 Migraine with aura, not intractable, without status migrainosus; F17.203 Nicotine dependence unspecified, with withdrawal; G93.40 Encephalopathy, unspecified; G47.30 Sleep apnea, unspecified; E11.9 Type 2 diabetes mellitus without complications; Z86.010 Personal history of colon polyps; Z80.0 Family history of malignant neoplasm of digestive organs; Z88.5 Allergy status to narcotic agent; Z91.041 Radiographic dye allergy status; Z88.0 Allergy status to penicillin; Z88.2 Allergy status to sulfonamides; Z79.899 Other long term (current) drug therapy; Z85.038 Personal history of other malignant neoplasm of large intestine; Z90.710 Acquired absence of both cervix and uterus; Z87.442 Personal history of urinary calculi; Z98.890 Other specified postprocedural states; Z86.2 Personal history of diseases of the blood and blood-forming organs and certain disorders involving the immune mechanism; Z88.8 Allergy status to other drugs, medicaments and biological substances; Z86.73 Personal history of transient ischemic attack (TIA), and cerebral infarction without residual deficits
CPT/HCPCS: 43239; 45378; 82962; 88305; 88342; J2704; J7030

== ENCOUNTER 2019-09-15 13:47 | Emergency (ER) | payer MEDICAID ==
[2019-09-15 14:12] VITALS: BP 151/90
--- NOTE | 2019-09-15 14:45 | Emergency Department Report ---
ED General Adult HPI - General Chief complaint: Skin Rash Stated complaint: REACTION TO MEDICATION Source: patient Mode of arrival: Ambulatory Limitations: No Limitations - History of Present Illness Initial comments: 54yo WF female states that she was recently seen by a GI specialist and she was diagnosed with H. Pylori. She states that a rash appeared after she took a dose of Metronidazole. She has taken Pantoprazole before with no symptoms. Her rash appeared on her arm and abdomen but have now resolved. -: Sudden, days(s) (1 day ago) Location: abdomen, upper extremity (bilateral) Radiation: abdomen Severity scale (0 -10): 6 Quality: constant Consistency: now resolved Improves with: other (ceasing medication) Worsens with: medication Associated Symptoms: rash Treatments Prior to Arrival: other (benadryl) - Related Data Home Medications Medication Instructions Recorded Confirmed Last Taken Metoprolol Succinate [Kapspargo 25 mg PO DAILY 08/30/19 08/30/19 08/29/19 Sprinkle] RX: Omeprazole 40 mg PO DAILY 08/30/19 08/30/19 08/29/19 Previous Rx's Medication Instructions Recorded Last Taken Type Pantoprazole [Protonix] 40 mg PO QDAY 30 Days #30 tablet 08/30/19 Unknown Rx Allergies Allergy/AdvReac Type Severity Reaction Status Date / Time codeine Allergy Rash Verified 08/30/19 10:41 Iodinated Contrast Media Allergy Hives Verified 08/30/19 10:41 levofloxacin [From Levaquin] Allergy Hives Verified 08/30/19 10:41 Penicillins Allergy Rash Verified 08/30/19 10:41 phenytoin sodium Allergy Rash Verified 08/30/19 10:41 [From Dilantin] phenytoin sodium extended Allergy Rash Verified 08/30/19 10:41 [From Dilantin] Sulfa (Sulfonamide Allergy Rash Verified 08/30/19 10:41 Antibiotics) ED Review of Systems ROS: Stated complaint: REACTION TO MEDICATION Other details as noted in HPI Constitutional: no symptoms reported Eyes: denies: as per HPI, eye pain, vision change ENT: denies: as per HPI, ear pain, throat pain Respiratory: no symptoms reported Cardiovascular: denies: chest pain, palpitations, dyspnea on exertion Endocrine: no symptoms reported Gastrointestinal: denies: abdominal pain, nausea, vomiting Genitourinary: denies: urgency, dysuria, frequency Musculoskeletal: denies: back pain, joint swelling, arthralgia Skin: as per HPI Neurological: denies: headache, weakness, numbness Psychiatric: denies: anxiety, depression, auditory hallucinations Hematological/Lymphatic: denies: easy bleeding, easy bruising, swollen glands ED Past Medical Hx - Past Medical History Previous Medical History?: Yes Hx Hypertension: Yes Hx CVA: Yes Hx Diabetes: Yes Hx GERD: Yes Hx Seizures: Yes Hx Kidney Stones: Yes Hx Psychiatric Treatment: Yes (depression) Hx Asthma: No Hx COPD: No Hx HIV: No Additional medical history: h/o ulcers, DVT. vertigo - Surgical History Past Surgical History?: Yes Hx Appendectomy: Yes Additional Surgical History: colon resection, sinus tumors removal. hysterectomy - Social History Smoking Status: Never Smoker Substance Use Type: None - Medications Home Medications: Home Medications Medication Instructions Recorded Confirmed Last Taken Type Metoprolol Succinate [Kapspargo 25 mg PO DAILY 08/30/19 08/30/19 08/29/19 History Sprinkle] Pantoprazole [Protonix] 40 mg PO QDAY 30 Days #30 tablet 08/30/19 Unknown Rx RX: Omeprazole 40 mg PO DAILY 08/30/19 08/30/19 08/29/19 History ED Physical Exam - General Limitations: No Limitations General appearance: alert, in no apparent distress - Head Head exam: Present: atraumatic, normocephalic - Eye Eye exam: Present: normal appearance, PERRL, EOMI - ENT ENT exam: Present: normal exam, normal orophraynx, mucous membranes dry - Neck Neck exam: Present: normal inspection, full ROM. Absent: tenderness - Respiratory Respiratory exam: Present: normal lung sounds bilaterally. Absent: respiratory distress, wheezes - Cardiovascular Cardiovascular Exam: Present: regular rate, normal rhythm, normal heart sounds - GI/Abdominal GI/Abdominal exam: Present: soft, normal bowel sounds. Absent: distended, tenderness - Rectal Rectal exam: Present: deferred - Extremities Exam Extremities exam: Present: normal inspection, full ROM. Absent: tenderness - Back Exam Back exam: Present: normal inspection, full ROM. Absent: tenderness - Neurological Exam Neurological exam: Present: alert, altered, oriented X3 - Psychiatric Psychiatric exam: Present: normal affect, normal mood. Absent: anxious - Skin Skin exam: Present: warm, dry, intact. Absent: rash ED Course Vital Signs 09/15/19 14:09 Temperature 97.5 F L Pulse Rate 78 Respiratory 16 Rate Blood Pressure 151/90 [Left] O2 Sat by Pulse 96 Oximetry ED Medical Decision Making - Medical Decision Making 54yo WF female states that she was recently seen by a GI specialist and she was diagnosed with H. Pylori. She states that a rash appeared after she took a dose of Metronidazole. She has taken Pantoprazole before with no symptoms. Her rash appeared on her arm and abdomen but have now resolved. She was instructed to cease Metronidazole, continue her current therapy and f/u with GI. She was further explained that if Clarithromycin affects her adversely to cease it and see ER as needed. Pt verbalized understanding and agreed with the plan of care. Critical care attestation.: If time is entered above; I have spent that time in minutes in the direct care of this critically ill patient, excluding procedure time. ED Disposition Clinical Impression: Allergic reaction caused by a drug Disposition: DC-01 TO HOME OR SELFCARE Is pt being admited?: No Does the pt Need Aspirin: No Condition: Stable Additional Instructions: She was instructed to cease Metronidazole, continue her current therapy and f/u with GI. She was further explained that if Clarithromycin affects her adversely to cease it and see ER as needed. Referrals: SYDNEE BARBOZA MD [Primary Care Provider] - 3-5 Days Time of Disposition: 14:53
== END 2019-09-15 15:03 | disposition home or self-care (01) ==
LOC: ED 13:47
DX: T37.8X5A Adverse effect of other specified systemic anti-infectives and antiparasitics, initial encounter (principal); I10 Essential (primary) hypertension; E11.9 Type 2 diabetes mellitus without complications; K21.9 Gastro-esophageal reflux disease without esophagitis; F32.9 Major depressive disorder, single episode, unspecified; Y92.89 Other specified places as the place of occurrence of the external cause
CPT/HCPCS: 99281

== ENCOUNTER 2019-09-27 11:31 | Outpatient (CLI) | payer MEDICAID ==
[2019-09-27 11:55] LABS: Hematocrit 37.8 % (30.3-42.9); Hemoglobin 12.1 gm/dl (10.1-14.3); Mean Corpuscular HGB Conc 32 % (30-34); Platelet Count 287 K/mm3 (140-440); Red Blood Count 5.41 M/mm3 (3.65-5.03)
[2019-09-27 12:04] LABS: Mean Corpuscular Volume 70 fl (79-97); Red Cell Distribution Width 22.4 % (13.2-15.2)
[2019-09-27 12:18] LABS: Alanine Aminotransferase 28 units/L (7-56); Albumin 4.1 g/dL (3.9-5); BUN/Creatinine Ratio 14; Blood Urea Nitrogen 13 mg/dL (7-17); Calcium 9.2 mg/dL (8.4-10.2); Hemolysis Index 8
[2019-09-27 12:25] LABS: Erythrocyte Sedimentation Rate 17 mm/Hr (0-20)
== END 2019-09-27 11:32 | disposition home or self-care (01) ==
LOC: LAB 11:31
PROVIDERS: ATTEND Specialist
DX: G45.9 Transient cerebral ischemic attack, unspecified (principal); Z88.0 Allergy status to penicillin; Z88.1 Allergy status to other antibiotic agents; Z88.8 Allergy status to other drugs, medicaments and biological substances
CPT/HCPCS: 36415; 80053; 85027; 85652

== ENCOUNTER 2019-10-18 17:58 | Emergency (ER) | payer MEDICAID ==
--- NOTE | 2019-10-18 18:03 | Emergency Department Report ---
Blank Doc - Documentation Documentation: 54-year-old female that was sent by long filler cigar roller machine for CT. Patient stated had a fall 4 days ago and started to have headaches 3 days ago. Stated he had some burry vision to left eye which then started to loss vision. Patient is in care with opthalmologist. Exam: no facial drooping. No one sided weakness. Normal speech. Normal gait. This initial assessment/diagnostic orders/clinical plan/treatment(s) is/are subject to change based on patient's health status, clinical progression and re- assessment by fellow clinical providers in the ED. Further treatment and workup at subsequent clinical providers discretion. Patient/guardians urged not to elope from the ED as their condition may be serious if not clinically assessed and managed. Initial orders include: 1- Patient sent to [facility] for further evaluation and treatment 2- CT head 3- labs
--- NOTE | 2019-10-18 18:50 | Cat Scan Report ---
NONENHANCED CT SCAN OF THE HEAD: CT head/brain wo con INDICATION / CLINICAL INFORMATION: 54 years Female; headache/visual lost. TECHNIQUE: Routine CT head without contrast. All CT scans at this location are performed using CT dos e reduction for ALARA by means of automated exposure control. COMPARISON: CT scan from 06/10/2018 FINDINGS: BRAIN / INTRACRANIAL CONTENTS: No acute hemorrhage, mass effect, midline shift, hydrocephalus, or acu te, large territorial infarct. No chronic infarct or focal atrophy. Normal brain volume and ventricul ar/sulcal size for age. No significant white matter abnormality. CRANIOCERVICAL JUNCTION: No significant abnormality. ORBITS: No significant abnormality of visualized orbits. SINUSES / MASTOIDS: No significant abnormality of the visualized paranasal sinuses or mastoid air lenny ls. ADDITIONAL FINDINGS: In the last CT scan, nasopharyngeal mucosal space mass was seen. In today's CT s can, visualized portion of the pharyngeal mucosal space, fossa of Rosenmuller and torus tubarius are normal. IMPRESSION: I do not see focal parenchymal lesion in the brain. Signer Name: Milvia Rogers MD Signed: 10/18/2019 6:46 PM Workstation Name: [id number]
[2019-10-18 19:07] LABS: Basophils # (Auto) 0.1 K/mm3 (0.0-0.1); Basophils % (Auto) 0.6 % (0.0-1.8); Eosinophils # (Auto) 0.2 K/mm3 (0.0-0.4); Eosinophils % (Auto) 1.1 % (0.0-4.3); Hematocrit 40.3 % (30.3-42.9); Hemoglobin 12.8 gm/dl (10.1-14.3); Lymphocytes # (Auto) 2.7 K/mm3 (1.2-5.4); Lymphocytes % (Auto) 19.3 % (13.4-35.0); Mean Corpuscular HGB Conc 32 % (30-34); Mean Corpuscular Volume 71 fl (79-97); Monocytes # (Auto) 0.7 K/mm3 (0.0-0.8); Monocytes % (Auto) 5.1 % (0.0-7.3); Platelet Count 327 K/mm3 (140-440); Red Blood Count 5.71 M/mm3 (3.65-5.03)
[2019-10-18 19:11] LABS: Red Cell Distribution Width 20.1 % (13.2-15.2)
[2019-10-18 19:16] LABS: INR 0.98 (0.87-1.13)
[2019-10-18 19:17] LABS: Partial Thromboplastin Time 26.5 Sec. (24.2-36.6)
[2019-10-18 19:22] LABS: Alanine Aminotransferase 15 units/L (7-56); Albumin 4.3 g/dL (3.9-5); BUN/Creatinine Ratio 22; Blood Urea Nitrogen 20 mg/dL (7-17); Calcium 9.6 mg/dL (8.4-10.2); Hemolysis Index 11
[2019-10-18 19:28] LABS: Thrombin Time 18.3 Sec. (15.1-19.6)
[2019-10-18] MEDS ORDERED: SODIUM CHLORIDE 0.9% 1000 ML 1,000 ML IV ONE (22:18)
[2019-10-18] MEDS ORDERED: methylPREDNISolone Sod Succinate 125 MG/2 ML INJ IV ONE (22:18)
[2019-10-18] MEDS ORDERED: diphenhydrAMINE 50 MG/ML VIAL IV ONE (22:19)
[2019-10-18] MEDS ORDERED: METOCLOPRAMIDE 10 MG/2 ML INJ IV ONE (22:19)
[2019-10-18] MEDS ORDERED: BUTALB/ACETAMINOPHEN/CAFFEINE TAB PO ONE (22:19)
[2019-10-18 22:26] VITALS: BP 121/82
--- NOTE | 2019-10-18 22:44 | Emergency Department Report ---
ED General Adult HPI - General Chief complaint: Headache Stated complaint: HEADACHE/LOSS OF VISION Time Seen by Provider: 10/18/19 17:59 Source: patient Mode of arrival: Ambulatory Limitations: Physical Limitation - History of Present Illness Initial comments: The patient presents to the emergency department with a chief complaint of a headache and blurry vision 3 days. The patient states 3 days ago she fell off a step striking her head on the left side and since that time she was seen today at her social sciences instructor's office( Dr. Barajas) for blurred vision and she was sent to the emergency department for a CT of the head for the headache. Jordan robin denies loss of consciousness or any neck pain. She states while at the social sciences instructor she had 4 eye exam and was normal. -: Sudden Location: head Severity scale (0 -10): 7 Quality: aching Consistency: constant Improves with: none Worsens with: none Associated Symptoms: denies other symptoms Treatments Prior to Arrival: none - Related Data Home Medications Medication Instructions Recorded Confirmed Last Taken Metoprolol Succinate [Kapspargo 25 mg PO DAILY 08/30/19 08/30/19 08/29/19 Sprinkle] Omeprazole 40 mg PO DAILY 08/30/19 08/30/19 08/29/19 Previous Rx's Medication Instructions Recorded Last Taken Type Pantoprazole [Protonix] 40 mg PO QDAY 30 Days #30 tablet 08/30/19 Unknown Rx Butalb/Acetamin/Caff 50-325-40 1 tab PO Q6HR PRN #24 tab 10/18/19 Unknown Rx [Fioricet] Allergies Allergy/AdvReac Type Severity Reaction Status Date / Time codeine Allergy Rash Verified 08/30/19 10:41 Iodinated Contrast Media Allergy Hives Verified 08/30/19 10:41 levofloxacin [From Levaquin] Allergy Hives Verified 08/30/19 10:41 Penicillins Allergy Rash Verified 08/30/19 10:41 phenytoin sodium Allergy Rash Verified 08/30/19 10:41 [From Dilantin] phenytoin sodium extended Allergy Rash Verified 08/30/19 10:41 [From Dilantin] Sulfa (Sulfonamide Allergy Rash Verified 08/30/19 10:41 Antibiotics) ED Review of Systems ROS: Stated complaint: HEADACHE/LOSS OF VISION Other details as noted in HPI Constitutional: denies: chills, fever Eyes: denies: eye pain, eye discharge, vision change ENT: denies: ear pain, throat pain Respiratory: denies: cough, shortness of breath, wheezing Cardiovascular: denies: chest pain, palpitations Endocrine: no symptoms reported Gastrointestinal: denies: abdominal pain, nausea, diarrhea Genitourinary: denies: urgency, dysuria, discharge Musculoskeletal: denies: back pain, joint swelling, arthralgia Skin: denies: rash, lesions Neurological: headache. denies: weakness, paresthesias Psychiatric: denies: anxiety, depression Hematological/Lymphatic: denies: easy bleeding, easy bruising ED Past Medical Hx - Past Medical History Previous Medical History?: Yes Hx Hypertension: Yes Hx CVA: Yes Hx Diabetes: Yes Hx GERD: Yes Hx Seizures: Yes Hx Kidney Stones: Yes Hx Psychiatric Treatment: Yes (depression) Hx Asthma: No Hx COPD: No Hx HIV: No Additional medical history: h/o ulcers, DVT. vertigo - Surgical History Past Surgical History?: Yes Hx Appendectomy: Yes Additional Surgical History: colon resection, sinus tumors removal. hysterectomy - Social History Smoking Status: Never Smoker Substance Use Type: None - Medications Home Medications: Home Medications Medication Instructions Recorded Confirmed Last Taken Type Metoprolol Succinate [Kapspargo 25 mg PO DAILY 08/30/19 08/30/19 08/29/19 History Sprinkle] Omeprazole 40 mg PO DAILY 08/30/19 08/30/19 08/29/19 History Pantoprazole [Protonix] 40 mg PO QDAY 30 Days #30 tablet 08/30/19 Unknown Rx Butalb/Acetamin/Caff 50-325-40 1 tab PO Q6HR PRN #24 tab 10/18/19 Unknown Rx [Fioricet] ED Physical Exam - General Limitations: Physical Limitation General appearance: alert, in no apparent distress - Head Head exam: Present: atraumatic, normocephalic - Eye Eye exam: Present: normal appearance, PERRL, EOMI - ENT ENT exam: Present: mucous membranes moist - Neck Neck exam: Present: normal inspection - Respiratory Respiratory exam: Present: normal lung sounds bilaterally. Absent: respiratory distress - Cardiovascular Cardiovascular Exam: Present: regular rate, normal rhythm. Absent: systolic murmur, diastolic murmur, rubs, gallop - GI/Abdominal GI/Abdominal exam: Present: soft, normal bowel sounds. Absent: distended, t enderness - Extremities Exam Extremities exam: Present: normal inspection - Back Exam Back exam: Present: normal inspection - Neurological Exam Neurological exam: Present: alert, oriented X3, CN II-XII intact. Absent: motor sensory deficit - Psychiatric Psychiatric exam: Present: normal affect, normal mood - Skin Skin exam: Present: warm, dry, intact, normal color. Absent: rash ED Course Vital Signs 10/18/19 10/18/19 18:02 22:24 Temperature 98.2 F 98 F Pulse Rate 126 H 92 H Respiratory 18 15 Rate Blood Pressure 158/98 Blood Pressure 121/82 [Left] O2 Sat by Pulse 97 96 Oximetry ED Medical Decision Making - Lab Data Result diagrams: 10/18/19 18:30 10/18/19 18:30 Lab Results 10/18/19 10/18/19 10/18/19 Range/Units 18:30 18:30 18:30 WBC 14.0 H (4.5-11.0) K/mm3 RBC 5.71 H (3.65-5.03) M/mm3 Hgb 12.8 (10.1-14.3) gm/dl Hct 40.3 (30.3-42.9) % MCV 71 L (79-97) fl MCH 22 L (28-32) pg MCHC 32 (30-34) % RDW 20.1 H (13.2-15.2) % Plt Count 327 (140-440) K/mm3 Lymph % (Auto) 19.3 (13.4-35.0) % [place] % (Auto) 5.1 (0.0-7.3) % Eos % (Auto) 1.1 (0.0-4.3) % Baso % (Auto) 0.6 (0.0-1.8) % Lymph # 2.7 (1.2-5.4) K/mm3 [place] # 0.7 (0.0-0.8) K/mm3 Eos # 0.2 (0.0-0.4) K/mm3 Baso # 0.1 (0.0-0.1) K/mm3 Seg Neutrophils % 73.9 H (40.0-70.0) % Seg Neutrophils # 10.3 H (1.8-7.7) K/mm3 PT 12.9 (12.2-14.9) Sec. INR 0.98 (0.87-1.13) APTT 26.5 (24.2-36.6) Sec. Thrombin Time 18.3 (15.1-19.6) Sec. Sodium 140 (137-145) mmol/L Potassium 3.9 (3.6-5.0) mmol/L Chloride 105.4 (98-107) mmol/L Carbon Dioxide 23 (22-30) mmol/L Anion Gap 16 mmol/L BUN 20 H (7-17) mg/dL Creatinine 0.9 (0.7-1.2) mg/dL Estimated GFR > 60 ml/min BUN/Creatinine Ratio 22 % Glucose 149 H (65-100) mg/dL Calcium 9.6 (8.4-10.2) mg/dL Total Bilirubin 0.20 (0.1-1.2) mg/dL AST 17 (5-40) units/L ALT 15 (7-56) units/L Alkaline Phosphatase 123 (35-129) units/L Troponin T (0.00-0.029) ng/mL Total Protein 8.2 (6.3-8.2) g/dL Albumin 4.3 (3.9-5) g/dL Albumin/Globulin Ratio 1.1 % 10/18/19 Range/Units 18:30 WBC (4.5-11.0) K/mm3 RBC (3.65-5.03) M/mm3 Hgb (10.1-14.3) gm/dl Hct (30.3-42.9) % MCV (79-97) fl MCH (28-32) pg MCHC (30-34) % RDW (13.2-15.2) % Plt Count (140-440) K/mm3 Lymph % (Auto) (13.4-35.0) % [place] % (Auto) (0.0-7.3) % Eos % (Auto) (0.0-4.3) % Baso % (Auto) (0.0-1.8) % Lymph # (1.2-5.4) K/mm3 [place] # (0.0-0.8) K/mm3 Eos # (0.0-0.4) K/mm3 Baso # (0.0-0.1) K/mm3 Seg Neutrophils % (40.0-70.0) % Seg Neutrophils # (1.8-7.7) K/mm3 PT (12.2-14.9) Sec. INR (0.87-1.13) APTT (24.2-36.6) Sec. Thrombin Time (15.1-19.6) Sec. Sodium (137-145) mmol/L Potassium (3.6-5.0) mmol/L Chloride (98-107) mmol/L Carbon Dioxide (22-30) mmol/L Anion Gap mmol/L BUN (7-17) mg/dL Creatinine (0.7-1.2) mg/dL Estimated GFR ml/min BUN/Creatinine Ratio % Glucose (65-100) mg/dL Calcium (8.4-10.2) mg/dL Total Bilirubin (0.1-1.2) mg/dL AST (5-40) units/L ALT (7-56) units/L Alkaline Phosphatase (35-129) units/L Troponin T < 0.010 (0.00-0.029) ng/mL Total Protein (6.3-8.2) g/dL Albumin (3.9-5) g/dL Albumin/Globulin Ratio % - Radiology Data Radiology results: report reviewed - Medical Decision Making Discussed results with patient Plan to patient that her headache is likely the cause secondary to the head injury obtained from a fall 3 days ago Medications order for the patient's headache but she declined. Critical care attestation.: If time is entered above; I have spent that time in minutes in the direct care of this critically ill patient, excluding procedure time. ED Disposition Clinical Impression: Closed head injury, Concussion, Headache Disposition: TO HOME OR SELFCARE Is pt being admited?: No Does the pt Need Aspirin: No Condition: Stable Instructions: Concussion (ED), Minor Head Injury (ED), Acute Headache (ED) Additional Instructions: return if worse Referrals: PRIMARY CARE,MD [Primary Care Provider] - 3-5 Days [facility] [Provider Group] - 3-5 Days [facility] [Provider Group] - 3-5 Days Time of Disposition: 22:44
[2019-10-18] MEDS ORDERED: ONDANSETRON 4 MG ODT TAB PO ONE (23:03)
== END 2019-10-18 23:25 | disposition home or self-care (01) ==
LOC: ED 17:58
DX: S06.0X9A Concussion with loss of consciousness of unspecified duration, initial encounter (principal); S09.90XA Unspecified injury of head, initial encounter; I10 Essential (primary) hypertension; E11.9 Type 2 diabetes mellitus without complications; K21.9 Gastro-esophageal reflux disease without esophagitis; F32.9 Major depressive disorder, single episode, unspecified; Z90.710 Acquired absence of both cervix and uterus; Z79.899 Other long term (current) drug therapy; Z86.73 Personal history of transient ischemic attack (TIA), and cerebral infarction without residual deficits; Z98.890 Other specified postprocedural states; Z91.041 Radiographic dye allergy status; Z88.1 Allergy status to other antibiotic agents; Z88.0 Allergy status to penicillin; Z88.4 Allergy status to anesthetic agent; X58.XXXA Exposure to other specified factors, initial encounter; Y93.89 Activity, other specified; Y92.89 Other specified places as the place of occurrence of the external cause; Y99.8 Other external cause status
CPT/HCPCS: 36415; 70450; 80053; 82962; 84484; 85025; 85610; 85670; 85730; Q0162

== ENCOUNTER 2020-01-02 10:28 | Outpatient (CLI) | payer MEDICAID ==
[2020-01-02 13:48] LABS: Basophils # (Auto) 0.1 K/mm3 (0.0-0.1); Basophils % (Auto) 0.7 % (0.0-1.8); Eosinophils # (Auto) 0.2 K/mm3 (0.0-0.4); Eosinophils % (Auto) 1.8 % (0.0-4.3); Hematocrit 40.2 % (30.3-42.9); Hemoglobin 12.5 gm/dl (10.1-14.3); Lymphocytes # (Auto) 2.4 K/mm3 (1.2-5.4); Lymphocytes % (Auto) 25.5 % (13.4-35.0); Mean Corpuscular HGB Conc 31 % (30-34); Mean Corpuscular Volume 72 fl (79-97); Monocytes # (Auto) 0.7 K/mm3 (0.0-0.8); Monocytes % (Auto) 7.8 % (0.0-7.3); Platelet Count 313 K/mm3 (140-440); Red Blood Count 5.57 M/mm3 (3.65-5.03); Red Cell Distribution Width 16.6 % (13.2-15.2)
[2020-01-02 14:14] LABS: Chol/HDL Ratio 2.83 %
[2020-01-02 14:37] LABS: Bilirubin,Urine NEG (Negative); Blood,Urine NEG (Negative); Color,Urine Yellow (Yellow); Mucus,Urine 3+ /HPF; Protein,Urine <15 mg/dL mg/dL (Negative); Urobilinogen,Urine < 2.0 mg/dL (<2.0)
== END 2020-01-02 10:29 | disposition home or self-care (01) ==
LOC: LAB 10:28
PROVIDERS: ATTEND Internal Medicine
DX: E11.65 Type 2 diabetes mellitus with hyperglycemia (principal); E78.5 Hyperlipidemia, unspecified; N39.0 Urinary tract infection, site not specified; D64.9 Anemia, unspecified
CPT/HCPCS: 36415; 80061; 81001; 82728; 83036; 83540; 85025

== ENCOUNTER 2020-01-12 18:59 | Emergency (ER) | payer MEDICAID ==
[2020-01-12 19:24] VITALS: BP 135/106
--- NOTE | 2020-01-12 19:31 | Event Note ---
ED Screening Note ED Screening Note: 54 yo female with asthma who feels tight +cough This initial assessment/diagnostic orders/clinical plan/treatment(s) is/are subject to change based on patients health status, clinical progression and re- assessment by fellow clinical providers in the ED. Further treatment and workup at subsequent clinical providers discretion. Patient/guardian urged not to elope from the ED as their condition may be serious if not clinically assessed and managed. Initial orders include: to treatment room
[2020-01-12] MEDS ORDERED: IPRATROPIUM/ALBUTEROL SULFATE 3 ML AMPUL.NEB IH ONE (19:45)
[2020-01-12] MEDS ORDERED: diphenhydrAMINE 25 MG CAP PO ONE (20:11)
--- NOTE | 2020-01-12 20:15 | Emergency Department Report ---
Minor Respiratory - HPI Chief Complaint: Upper Respiratory Infection Stated Complaint: COUGH Duration: 2 Days Pain Location: Chest Severity: mild Minor Respiratory: Yes Able to Tolerate Fluids, Yes Cough, No Rhinorrhea, No Sore Throat, No Ear Pain, No Sick Contacts, No Hemoptysis, No Chest Pain, No Shortness of Breath, No Fever Other History: 2 days of cough, needs a breathing treatment, hx of asthma and tobacco abuse needs albuterol refill ED Review of Systems ROS: Stated complaint: COUGH Other details as noted in HPI Constitutional: denies: fever, malaise Respiratory: cough. denies: wheezing Cardiovascular: denies: chest pain Gastrointestinal: denies: abdominal pain, nausea, vomiting ED Past Medical Hx - Past Medical History Previous Medical History?: Yes Hx Hypertension: Yes Hx CVA: Yes Hx Diabetes: Yes Hx GERD: Yes Hx Seizures: Yes Hx Kidney Stones: Yes Hx Psychiatric Treatment: Yes (depression) Hx Asthma: No Hx COPD: No Hx HIV: No Additional medical history: h/o ulcers, DVT. vertigo - Surgical History Past Surgical History?: Yes Hx Appendectomy: Yes Additional Surgical History: colon resection, sinus tumors removal. hysterectomy - Social History Smoking Status: Former Smoker Substance Use Type: None - Medications Home Medications: Home Medications Medication Instructions Recorded Confirmed Last Taken Type Metoprolol Succinate [Kapspargo 25 mg PO DAILY 08/30/19 08/30/19 08/29/19 History Sprinkle] Omeprazole 40 mg PO DAILY 08/30/19 08/30/19 08/29/19 History Pantoprazole [Protonix] 40 mg PO QDAY 30 Days #30 tablet 08/30/19 Unknown Rx Butalb/Acetamin/Caff 50-325-40 1 tab PO Q6HR PRN #24 tab 10/18/19 Unknown Rx [Fioricet] Ondansetron [Zofran Odt] 4 mg PO Q4HR PRN #20 tab.rapdis 10/18/19 Unknown Rx ALBUTEROL NEB's [Proventil 0.083% 2.5 mg IH QID PRN #1 box 01/12/20 Unknown Rx NEBS] Minor Respiratory Exam - Exam General: Vital signs noted. No distress. Alert and acting appropriately. speaking full word sentences nad HEENT: Yes Moist Mucous Membranes, No Pharyngeal Erythema, No Pharyngeal Exudates, No Rhinorrhea, No Conjuctival Injection Neck: Yes Supple, No Adenopathy Lungs: Yes Good Air Exchange, No Wheezes, No Ronchi, No Stridor, No Cough, No Labored Respirations, No Retractions, No Use of Accessory Muscles, No Other Abnormal Lung Sounds Heart: Yes Regular, No Murmur Abdomen: Yes Normal Bowel Sounds, No Tenderness, No Peritoneal Signs Skin: No Rash, No Edema Neurologic: Alert and oriented, no deficits. Musculoskeletal: Unremarkable. ED Course Vital Signs 01/12/20 01/12/20 19:23 19:52 Temperature 98.3 F Pulse Rate 116 H Pulse Rate [ 120 H Posterior Bilateral Throughout] Respiratory 17 Rate Respiratory 18 Rate [Posterior Bilateral Throughout] Blood Pressure 135/106 [Right] O2 Sat by Pulse 98 Oximetry ED Medical Decision Making - Medical Decision Making minor cough, rx: albuterol solution Critical care attestation.: If time is entered above; I have spent that time in minutes in the direct care of this critically ill patient, excluding procedure time. ED Disposition Clinical Impression: Cough, Medication refill Disposition: - TO HOME OR SELFCARE Is pt being admited?: No Does the pt Need Aspirin: No Condition: Stable Prescriptions: ALBUTEROL NEB's [Proventil 0.083% NEBS] 2.5 mg IH QID PRN #1 box PRN Reason: Wheezing Referrals: SYDNEE BARBOZA MD [Staff Physician] - 3-5 Days
== END 2020-01-12 20:42 | disposition home or self-care (01) ==
LOC: ED 18:59
DX: R05 Cough (principal); I10 Essential (primary) hypertension; E11.9 Type 2 diabetes mellitus without complications; K21.9 Gastro-esophageal reflux disease without esophagitis; F32.9 Major depressive disorder, single episode, unspecified; Z76.0 Encounter for issue of repeat prescription; Z86.73 Personal history of transient ischemic attack (TIA), and cerebral infarction without residual deficits; Z90.49 Acquired absence of other specified parts of digestive tract; Z86.69 Personal history of other diseases of the nervous system and sense organs; Z87.442 Personal history of urinary calculi; Z87.891 Personal history of nicotine dependence; Z90.710 Acquired absence of both cervix and uterus; Z79.899 Other long term (current) drug therapy; Z88.5 Allergy status to narcotic agent; Z91.041 Radiographic dye allergy status; Z88.0 Allergy status to penicillin; Z88.1 Allergy status to other antibiotic agents; Z88.8 Allergy status to other drugs, medicaments and biological substances
CPT/HCPCS: 94640; 94644; 99283

== ENCOUNTER 2020-05-25 23:58 | Emergency (ER) | payer MEDICAID ==
[2020-05-26 00:39] LABS: Hematocrit 37.4 % (30.3-42.9); Mean Corpuscular HGB Conc 32 % (30-34); Platelet Count 355 K/mm3 (140-440); Red Blood Count 5.36 M/mm3 (3.65-5.03); Red Cell Distribution Width 16.4 % (13.2-15.2)
[2020-05-26 00:59] LABS: Alanine Aminotransferase 12 units/L (7-56); Albumin 4.2 g/dL (3.9-5); BUN/Creatinine Ratio 17; Blood Urea Nitrogen 15 mg/dL (7-17); Calcium 9.4 mg/dL (8.4-10.2); Hemolysis Index 0
--- NOTE | 2020-05-26 01:11 | Cat Scan Report ---
CT HEAD WITHOUT CONTRAST INDICATION / CLINICAL INFORMATION: dizzyness. TECHNIQUE: All CT scans at this location are performed using CT dose reduction for ALARA by means of automated e xposure control. COMPARISON: None available. FINDINGS: HEMORRHAGE: None. EXTRA-AXIAL SPACES: Normal in size and morphology for the patient's age. VENTRICULAR SYSTEM: Normal in size and morphology for the patient's age. CEREBRAL PARENCHYMA: No significant abnormality. No acute territorial infarct. MIDLINE SHIFT OR HERNIATION: None. CEREBELLUM / BRAINSTEM: No significant abnormality. ORBITS: Normal as visualized. SOFT TISSUES of HEAD: No significant abnormality. CALVARIUM: No significant abnormality. PARANASAL SINUSES / MASTOID AIR CELLS: Normal as visualized. ADDITIONAL FINDINGS: None. IMPRESSION: 1. No acute intracranial abnormality. Signer Name: Henri Vega MD Signed: 05/26/2020 1:06 AM Workstation Name: [id number]
[2020-05-26 01:14] LABS: Mean Corpuscular Volume 70 fl (79-97)
[2020-05-26 01:20] LABS: INR 0.92 (0.87-1.13)
--- NOTE | 2020-05-26 01:39 | XRay Report ---
CHEST 1 VIEW 05/26/2020 12:43 AM INDICATION / CLINICAL INFORMATION: dizzyness. COMPARISON: 06/10/2018 FINDINGS: SUPPORT DEVICES: None. HEART / MEDIASTINUM: No significant abnormality. LUNGS / PLEURA: No significant pulmonary or pleural abnormality. No pneumothorax. ADDITIONAL FINDINGS: No significant additional findings. IMPRESSION: 1. No acute findings. Signer Name: Henri Vega MD Signed: 05/26/2020 1:34 AM Workstation Name: [id number]
[2020-05-26] MEDS ORDERED: diphenhydrAMINE 50 MG/ML VIAL IV ONE (01:47)
[2020-05-26] MEDS ORDERED: MECLIZINE 25 MG TAB PO ONE (01:47)
[2020-05-26] MEDS ORDERED: SODIUM CHLORIDE 0.9% 500 ML 500 ML IV ONE (01:47)
[2020-05-26] MEDS ORDERED: METOCLOPRAMIDE 10 MG/2 ML INJ IV ONE (01:47)
--- NOTE | 2020-05-26 01:48 | Emergency Department Report ---
ED General Adult HPI - General Chief complaint: Dizziness Stated complaint: DIZZINESS PUI?: No Time Seen by Provider: 05/26/20 00:45 Source: patient, EMS ( EMS documentation not available at time of chart dictation ), RN notes reviewed, old records reviewed Mode of arrival: Stretcher Limitations: Physical Limitation - History of Present Illness Initial comments: The patient is a 55-year-old female. She has a history of "enlarged liver", also has a history of diabetes, GERD, hypertension, depression, ulcers, DVT, and vertigo, and sinus tumors The patient presents to the ER with a primary complaint of dizziness, which she describes as a sensation of painless lightheadedness, improves when sitting up, worsens when laying flat. This is accompanied by mild frontal sinus headache, not sudden or thunderclap in nature, not maximal in intensity, no loss of vision, no tinnitus, no ear pain, no ocular pain, no chest pain, no shortness of breath. Positive right lower back pain and flank pain. In the past she has been diagnosed with kidney stones. She thinks that she has a urinary tract infection and endorses intermittent dysuria She has chronic right lower extremity debility secondary to a reported old stroke Denies recent travel, surgeries, immobilization, posterior leg pain, and posterior leg swelling. She reports that her primary care doctor gave her an antibiotic which she has not taken, because "I am completing another medicine which will interfere with the antibiotic." She does not know the name of either of these medications. She is not homicidal or suicidal. -: Gradual, days(s) Location: back Quality: aching Consistency: intermittent Improves with: rest, other Worsens with: other - Related Data Home Medications Medication Instructions Recorded Confirmed Last Taken Metoprolol Succinate [Kapspargo 25 mg PO DAILY 08/30/19 05/26/20 08/29/19 Sprinkle] Omeprazole 40 mg PO DAILY 08/30/19 05/26/20 08/29/19 Metformin HCl [metFORMIN] 1 tab PO BID 05/26/20 05/26/20 Unknown carBAMazepine [Tegretol] 200 mg PO TID 05/26/20 05/26/20 Unknown Previous Rx's Medication Instructions Recorded Last Taken Type Meclizine [Antivert] 25 mg PO TID PRN #15 tablet 05/26/20 Unknown Rx Metoclopramide [Reglan] 10 mg PO Q6HR PRN #15 tab 05/26/20 Unknown Rx Nitrofurantoin Jasper/M-Cryst 100 mg PO Q12HR #14 capsule 05/26/20 Unknown Rx [Macrobid CAP] Allergies Allergy/AdvReac Type Severity Reaction Status Date / Time codeine Allergy Rash Verified 08/30/19 10:41 Iodinated Contrast Media Allergy Hives Verified 08/30/19 10:41 levofloxacin [From Levaquin] Allergy Hives Verified 08/30/19 10:41 Penicillins Allergy Rash Verified 08/30/19 10:41 phenytoin sodium Allergy Rash Verified 08/30/19 10:41 [From Dilantin] phenytoin sodium extended Allergy Rash Verified 08/30/19 10:41 [From Dilantin] Sulfa (Sulfonamide Allergy Rash Verified 08/30/19 10:41 Antibiotics) ED Review of Systems ROS: Stated complaint: DIZZINESS Other details as noted in HPI Constitutional: denies: fever Eyes: denies: eye discharge, vision change ENT: denies: throat pain Respiratory: denies: cough Cardiovascular: denies: chest pain Gastrointestinal: nausea, vomiting. denies: diarrhea Genitourinary: urgency Musculoskeletal: back pain Neurological: weakness, vertigo. denies: numbness, paresthesias ED Past Medical Hx - Past Medical History Previous Medical History?: Yes Hx Hypertension: Yes Hx CVA: Yes Hx Diabetes: Yes Hx GERD: Yes Hx Seizures: Yes Hx Kidney Stones: Yes Hx Psychiatric Treatment: Yes (depression) Hx Asthma: No Hx COPD: No Hx HIV: No Additional medical history: h/o ulcers, DVT. vertigo - Surgical History Past Surgical History?: Yes Hx Appendectomy: Yes Additional Surgical History: colon resection, sinus tumors removal. hysterectomy - Social History Smoking Status: Never Smoker Substance Use Type: None - Medications Home Medications: Home Medications Medication Instructions Recorded Confirmed Last Taken Type Metoprolol Succinate [Kapspargo 25 mg PO DAILY 08/30/19 05/26/20 08/29/19 His yosef Lele] Omeprazole 40 mg PO DAILY 08/30/19 05/26/20 08/29/19 History Meclizine [Antivert] 25 mg PO TID PRN #15 tablet 05/26/20 Unknown Rx Metformin HCl [metFORMIN] 1 tab PO BID 05/26/20 05/26/20 Unknown History Metoclopramide [Reglan] 10 mg PO Q6HR PRN #15 tab 05/26/20 Unknown Rx Nitrofurantoin Jasper/M-Cryst 100 mg PO Q12HR #14 capsule 05/26/20 Unknown Rx [Macrobid CAP] carBAMazepine [Tegretol] 200 mg PO TID 05/26/20 05/26/20 Unknown History ED Physical Exam - General Limitations: Physical Limitation General appearance: alert, in no apparent distress - Head Head exam: Present: atraumatic, normocephalic - Eye Eye exam: Present: normal appearance, PERRL, EOMI, other (Visual acuity intact to finger counting, color perception, reading at a close distance). Absent: nystagmus - ENT ENT exam: Present: normal exam, normal orophraynx, mucous membranes moist, TM's normal bilaterally, normal external ear exam - Neck Neck exam: Present: normal inspection, full ROM. Absent: tenderness, meningismus - Respiratory Respiratory exam: Present: normal lung sounds bilaterally. Absent: respiratory distress, wheezes, rales, rhonchi, stridor, decreased breath sounds - Cardiovascular Cardiovascular Exam: Present: regular rate, normal rhythm, normal heart sounds. Absent: bradycardia, tachycardia, irregular rhythm, systolic murmur, diastolic murmur, rubs, gallop - GI/Abdominal GI/Abdominal exam: Present: soft, tenderness, normal bowel sounds, other (There is right flank and right upper quadrant tenderness). Absent: distended, guarding, rebound, rigid, pulsatile mass - Extremities Exam Extremities exam: Present: normal inspection, full ROM, other (2+ pulses noted in the bilateral upper and lower extremities. There is no palpable cord. negative Homans sign. Muscular compartments are soft. The pelvis is stable.). Absent: pedal edema, calf tenderness - Back Exam Back exam: Present: normal inspection, full ROM, CVA tenderness (R). Absent: tenderness, CVA tenderness (L), paraspinal tenderness, vertebral tenderness - Neurological Exam Neurological exam: Present: alert, oriented X3, abnormal gait (The patient ambulates with a slightly unsteady gait with a 1 person assist), other (No facial droop. Tongue midline. Extraocular movements intact bilaterally. Facial sensation intact to light touch in V1, V2, V3 distribution bilaterally. 5 and a 5 strength in 4 extremities. Sensation intact to light touch in 4 extremities. There is no past-pointing. There is normal [id number]. There is no pronator drift.). Absent: motor sensory deficit - Psychiatric Psychiatric exam: Present: anxious - Skin Skin exam: Present: warm, dry, intact, normal color. Absent: rash ED Course Vital Signs 05/26/20 05/26/20 05/26/20 00:07 01:00 01:04 Temperature 98 F 98.3 F Pulse Rate 87 77 77 Respiratory 20 14 14 Rate Blood Pressure 117/86 138/90 Blood Pressure 138/90 [Right] O2 Sat by Pulse 98 100 100 Oximetry 05/26/20 05/26/20 05/26/20 01:30 02:16 02:30 Temperature Pulse Rate 68 69 Respiratory 17 17 Rate Blood Pressure 145/93 145/93 149/89 Blood Pressure [Right] O2 Sat by Pulse 98 100 96 Oximetry 05/26/20 05/26/20 03:00 04:00 Temperature Pulse Rate 70 71 Respiratory 18 16 Rate Blood Pressure 148/85 133/77 Blood Pressure [Right] O2 Sat by Pulse 97 95 Oximetry - Reevaluation(s) Reevaluation #1: 05/26/20 02:50 Differential diagnosis, including but not limited to: Migraine headache, tension headache, cluster headache, peripheral vertigo, pneumonia, urinary tract infection, dehydration, renal colic, medication interaction Assessment and plan: 55-year-old female with a primary complaint of dizziness, nausea and vomiting, secondary complaint of right lower back pain and flank pain, dysuria complaint of dysuria. GCS 15. NIH score 0 at this time. Neurologic exam unremarkable except as not ed. No active vomiting at this time. Treat symptoms, obtain CT scan of the brain, x-ray of the chest, CT scan of the abdomen pelvis, basic laboratory studies, urinalysis, reconcile medicines, and reassess. Patient observed for hours so far, without active vomiting. I have requested that nursing team reconcile the patient's medications. She is not currently tachycardic, tachypneic or hypoxic, I think this is very unlikely to be a pulmonary embolism. There is a negative Collins sign. Reevaluation #2: 05/26/20 05:08 Medications are reviewed and appreciated. Belly soft on repeat exam. Flank pain/tenderness resolved. Patient ambulates with a steady gait and endorses readiness for discharge. She states she is going to follow-up with her outpatient primary care doctor. She will be discharged at this time. Return precautions are reviewed ED Medical Decision Making - Lab Data Result diagrams: 05/26/20 00:21 05/26/20 00:21 Vital Signs 05/26/20 05/26/20 05/26/20 00:07 01:00 01:04 Temperature 98 F 98.3 F Pulse Rate 87 77 77 Respiratory 20 14 14 Rate Blood Pressure 117/86 138/90 Blood Pressure 138/90 [Right] O2 Sat by Pulse 98 100 100 Oximetry 05/26/20 05/26/20 05/26/20 01:30 02:16 02:30 Temperature Pulse Rate 68 69 Respiratory 17 17 Rate Blood Pressure 145/93 145/93 149/89 Blood Pressure [Right] O2 Sat by Pulse 98 100 96 Oximetry Lab Results 05/26/20 05/26/20 05/26/20 Range/Units 00:21 00:21 00:25 WBC 14.0 H (4.5-11.0) K/mm3 RBC 5.36 H (3.65-5.03) M/mm3 Hgb 12.0 (10.1-14.3) gm/dl Hct 37.4 (30.3-42.9) % MCV 70 L (79-97) fl MCH 22 L (28-32) pg MCHC 32 (30-34) % RDW 16.4 H (13.2-15.2) % Plt Count 355 (140-440) K/mm3 PT 12.2 (12.2-14.9) Sec. INR 0.92 (0.87-1.13) Sodium 141 (137-145) mmol/L Potassium 4.0 (3.6-5.0) mmol/L Chloride 103.5 (98-107) mmol/L Carbon Dioxide 26 (22-30) mmol/L Anion Gap 16 mmol/L BUN 15 (7-17) mg/dL Creatinine 0.9 (0.7-1.2) mg/dL Estimated GFR > 60 ml/min BUN/Creatinine Ratio 17 % Glucose 104 H (65-100) mg/dL Calcium 9.4 (8.4-10.2) mg/dL Magnesium (1.7-2.3) mg/dL Total Bilirubin 0.20 (0.1-1.2) mg/dL AST 13 (5-40) units/L ALT 12 (7-56) units/L Alkaline Phosphatase 113 (35-129) units/L Total Creatine Kinase (30-135) units/L Total Protein 7.9 (6.3-8.2) g/dL Albumin 4.2 (3.9-5) g/dL Albumin/Globulin Ratio 1.1 % Salicylates (2.8-20.0) mg/dL Acetaminophen (10.0-30.0) ug/mL Plasma/Serum Alcohol (0-0.07) % 05/26/20 05/26/20 05/26/20 Range/Units 00:25 00:25 00:25 WBC (4.5-11.0) K/mm3 RBC (3.65-5.03) M/mm3 Hgb (10.1-14.3) gm/dl Hct (30.3-42.9) % MCV (79-97) fl MCH (28-32) pg MCHC (30-34) % RDW (13.2-15.2) % Plt Count (140-440) K/mm3 PT (12.2-14.9) Sec. INR (0.87-1.13) Sodium (137-145) mmol/L Potassium (3.6-5.0) mmol/L Chloride (98-107) mmol/L Carbon Dioxide (22-30) mmol/L Anion Gap mmol/L BUN (7-17) mg/dL Creatinine (0.7-1.2) mg/dL Estimated GFR ml/min BUN/Creatinine Ratio % Glucose (65-100) mg/dL Calcium (8.4-10.2) mg/dL Magnesium 1.90 (1.7-2.3) mg/dL Total Bilirubin (0.1-1.2) mg/dL AST (5-40) units/L ALT (7-56) units/L Alkaline Phosphatase (35-129) units/L Total Creatine Kinase 108 (30-135) units/L Total Protein (6.3-8.2) g/dL Albumin (3.9-5) g/dL Albumin/Globulin Ratio % Salicylates < 0.3 L (2.8-20.0) mg/dL Acetaminophen < 5.0 L (10.0-30.0) ug/mL Plasma/Serum Alcohol (0-0.07) % 05/26/20 Range/Units 00:25 WBC (4.5-11.0) K/mm3 RBC (3.65-5.03) M/mm3 Hgb (10.1-14.3) gm/dl Hct (30.3-42.9) % MCV (79-97) fl MCH (28-32) pg MCHC (30-34) % RDW (13.2-15.2) % Plt Count (140-440) K/mm3 PT (12.2-14.9) Sec. INR (0.87-1.13) Sodium (137-145) mmol/L Potassium (3.6-5.0) mmol/L Chloride (98-107) mmol/L Carbon Dioxide (22-30) mmol/L Anion Gap mmol/L BUN (7-17) mg/dL Creatinine (0.7-1.2) mg/dL Estimated GFR ml/min BUN/Creatinine Ratio % Glucose (65-100) mg/dL Calcium (8.4-10.2) mg/dL Magnesium (1.7-2.3) mg/dL Total Bilirubin (0.1-1.2) mg/dL AST (5-40) units/L ALT (7-56) units/L Alkaline Phosphatase (35-129) units/L Total Creatine Kinase (30-135) units/L Total Protein (6.3-8.2) g/dL Albumin (3.9-5) g/dL Albumin/Globulin Ratio % Salicylates (2.8-20.0) mg/dL Acetaminophen (10.0-30.0) ug/mL Plasma/Serum Alcohol < 0.01 (0-0.07) % - EKG Data -: EKG Interpreted by [facility] EKG shows normal: sinus rhythm Rate: normal - EKG Data 05/26/20 02:53 Sinus rhythm, 71 bpm, normal axis, normal intervals, benign and unremarkable EKG, no acute findings, not a STEMI - Radiology Data Radiology results: pending, report reviewed, image reviewed Print Report Referring Physician: LUKAS ROCHA Patient Name: JEFF FLORES Date of : 1965 Sex: Female Report Date: 2020-05-26 Report Status: Finalized Findings [facility] [address] [place] [address] Cat Scan Report Signed Patient: JEFF FLORES MR#: [id number] : 1965 Acct:[id number] Age/Sex: 55 / F ADM Date: 05/25/20 Loc: ED A ttending Dr: Ordering Physician: LUKAS ROCHA MD Date of Service: 05/26/20 Procedure(s): CT head/brain wo con Accession Number(s): [id number] cc: LUKAS ROCHA MD CT HEAD WITHOUT CONTRAST INDICATION / CLINICAL INFORMATION: dizzyness. TECHNIQUE: All CT scans at this location are performed using CT dose reduction for ALARA by means of automated exposure control. COMPARISON: None available. FINDINGS: HEMORRHAGE: None. EXTRA-AXIAL SPACES: Normal in size and morphology for the patient's age. VENTRICULAR SYSTEM: Normal in size and morphology for the patient's age. CEREBRAL PARENCHYMA: No significant abnormality. No acute territorial infarct. MIDLINE SHIFT OR HERNIATION: None. CEREBELLUM / BRAINSTEM: No significant abnormality. ORBITS: Normal as visualized. SOFT TISSUES of HEAD: No significant abnormality. CALVARIUM: No significant abnormality. PARANASAL SINUSES / MASTOID AIR CELLS: Normal as visualized. ADDITIONAL FINDINGS: None. IMPRESSION: 1. No acute intracranial abnormality. Signer Name: Henri Vega MD Signed: 05/26/2020 1:06 AM Workstation Name: [id number] Transcribed By: TL Dictated By: Henri Vega MD Electronically Authenticated By: Henri Vega MD Signed Date/Time: 05/26/206 DD/ 0059 Print Report Referring Physician: LUKAS ROCHA Patient Name: JEFF FLORES Date of : 1965 Sex: Female Report Date: 2020-05-26 Report Status: Finalized Findings [facility] [address] [place] [address] XRay Report Signed Patient: JEFF FLORES MR#: [id number] : 1965 Acct:[id number] Age/Sex: 55 / F ADM Date: 05/25/20 Loc: ED Attending Dr: Ordering Physician: LUKAS ROCHA MD Date of Service: 05/26/20 Procedure(s): XR chest 1V ap Accession Number(s): [id number] cc: LUKAS ROCHA MD Fluoro Time In Minutes: CHEST 1 VIEW 05/26/2020 12:43 AM INDICATION / CLINICAL INFORMATION: dizzyness. COMPARISON: 06/10/2018 FINDINGS: SUPPORT DEVICES: None. HEART / MEDIASTINUM: No significant abnormality. LUNGS / PLEURA: No significant pulmonary or pleural abnormality. No pneumothorax. ADDITIONAL FINDINGS: No significant additional findings. IMPRESSION: 1. No acute findings. Signer Name: Henri Vega MD Signed: 05/26/2020 1:34 AM Workstation Name: [id number] Transcribed By: TL Dictated By: Henri Vega MD Electronically Authenticated By: Henri Vega MD Signed Date/Time: 05/26/20133 DD/ 3 Critical care attestation.: If time is entered above; I have spent that time in minutes in the direct care of this critically ill patient, excluding procedure time. ED Disposition Clinical Impression: Back pain, Abdominal pain, Vertigo, Dysuria Disposition: DC-01 TO HOME OR SELFCARE Is pt being admited?: No Does the pt Need Aspirin: No Condition: Stable Additional Instructions: Cultures were sent today, and results will be available in the next 3 to 5 days. Please have your primary care doctor contact the medical records department to obtain culture results. Take the prescribed medications as needed and directed. Please follow-up with your primary care doctor a within the next 5 to 7 days. Please return to the emergency room right away with new pain, worsening pain, migration of pain, projectile vomiting, change in mental status, confusion, inability to tolerate with feeds, or any new, worsened or different symptoms not present on the initial emergency room evaluation. Do not consume alcohol or sedating substances. Patient may take [id number] Tylenol, 650 mg by mouth, every 4-6 hours as needed for pain, Maximum daily dose to not exceed 3 g per 24 hours, alternating with Motrin, 400 mg by mouth, with food, every 6 hours as needed for pain. Referrals: SYDNEE BARBOZA MD [Staff Physician] - 3-5 Days [facility] [Provider Group] - 3-5 Days
--- NOTE | 2020-05-26 03:27 | Cat Scan Report ---
CT ABDOMEN AND PELVIS WITHOUT CONTRAST INDICATION: right flank pain. TECHNIQUE: Axial CT images were obtained through the abdomen and pelvis without IV contrast. All CT scans at [facility] location are performed using CT dose reduction for ALARA by means of automated exposure control. COMPARISON: CT abdomen pelvis 01/02/2019 FINDINGS: LOWER CHEST: No significant abnormality. Moderate size hiatal hernia again noted. LIVER: No significant abnormality. GALLBLADDER: No significant abnormality. BILE DUCTS: No significant abnormality. PANCREAS: No significant abnormality. SPLEEN: No significant abnormality. ADRENALS: No significant abnormality. RIGHT KIDNEY and URETER: No significant abnormality. LEFT KIDNEY and URETER: No significant abnormality. STOMACH and SMALL BOWEL: No significant abnormality. COLON: No significant abnormality. APPENDIX: Not visualized on current nor prior study likely surgically absent. PERITONEUM: No free fluid. No free air. No fluid collection. LYMPH NODES: No significant adenopathy. AORTA and ARTERIES: No significant abnormality. IVC and VEINS: No significant abnormality. URINARY BLADDER: No significant abnormality. REPRODUCTIVE ORGANS: Surgically absent ADDITIONAL FINDINGS: None. SKELETAL SYSTEM: No significant abnormality. IMPRESSION: 1. No significant abnormality. 2. Stable moderate hiatal hernia. 3. Previous hysterectomy and probable appendectomy, unchanged Signer Name: Henri Vega MD Signed: 05/26/2020 3:22 AM Workstation Name: [id number]
[2020-05-26 04:16] LABS: Bacteria,Urine 1+ /HPF (Negative); Bilirubin,Urine NEG (Negative); Blood,Urine NEG (Negative); Color,Urine Yellow (Yellow); Mucus,Urine FEW /HPF; Protein,Urine <15 mg/dL mg/dL (Negative)
[2020-05-26 05:52] VITALS: BP 124/79
== END 2020-05-26 05:45 | disposition home or self-care (01) ==
LOC: ED 23:58
DX: R30.0 Dysuria (principal); R42 Dizziness and giddiness; M54.89 Other dorsalgia; R10.11 Right upper quadrant pain; I10 Essential (primary) hypertension; E11.9 Type 2 diabetes mellitus without complications; K21.9 Gastro-esophageal reflux disease without esophagitis; F32.89 Other specified depressive episodes; Z90.710 Acquired absence of both cervix and uterus; Z90.49 Acquired absence of other specified parts of digestive tract; Z86.73 Personal history of transient ischemic attack (TIA), and cerebral infarction without residual deficits; Z88.4 Allergy status to anesthetic agent; Z88.0 Allergy status to penicillin; Z88.1 Allergy status to other antibiotic agents; Z91.041 Radiographic dye allergy status
CPT/HCPCS: 36415; 70450; 71045; 74176; 80053; 81001; 82550; 83735; 85027; 85610; 87086; 93005; 96361; 96374; 96375; 99285; J1200; J2765; J7040; 80320; G0480

== ENCOUNTER 2020-07-13 17:09 | Emergency (ER) | payer MEDICAID ==
[2020-07-13 17:49] VITALS: BP 142/88
== END 2020-07-13 19:30 | disposition left against medical advice (07) ==
LOC: ED 17:09
DX: M54.6 Pain in thoracic spine (principal); R30.9 Painful micturition, unspecified; Z53.21 Procedure and treatment not carried out due to patient leaving prior to being seen by health care provider

== ENCOUNTER 2020-10-05 17:47 | Emergency (ER) | payer MEDICAID ==
[2020-10-05 18:21] VITALS: BP 136/92
--- NOTE | 2020-10-05 19:33 | Event Note ---
ED Screening Note ED Screening Note: states she has dizziness that began this morning states she has associated nausea, room spinning, walking towards one time states she has vertigo frequently states she has seen ENT doctor did not take any medication for her symptoms no vomiting no fever lower back discomfort that began few days concerned she has UTI mild dyuria, dark and odor to urine states she had itching after taking an abx a month ago, concerned she has yeast This initial assessment/diagnostic orders/clinical plan/treatment(s) is/are subject to change based on patients health status, clinical progression and re- assessment by fellow clinical providers in the ED. Further treatment and workup at subsequent clinical providers discretion. Patient/guardian urged not to elope from the ED as their condition may be serious if not clinically assessed and managed. Initial orders include: labs, EKG, CT head, UA
--- NOTE | 2020-10-05 20:23 | Cat Scan Report ---
CT BRAIN: 10/05/2020 INDICATION / CLINICAL INFORMATION: dizziness, headache. COMPARISON: 05/26/2020 FINDINGS: BRAIN/INTRACRANIAL STRUCTURES: Unenhanced CT images of the brain were obtained and compared to the mo st recent prior exam from 05/26/2020. There is been no change. There is no evidence of acute abnormality. Ventricles and sulci are normal in size and shape. There is no evidence of acute ischemic injury, hemorrhage, or mass. There are no abnormal extra-axial fluid collections. EXTRACRANIAL STRUCTURES: Unremarkable. IMPRESSION: No acute abnormality. No change when compared to 05/26/2020. All CT scans at this location are performed using dose reduction to ALARA by means of automated expos ure control. Signer Name: Herman Rojo MD Signed: 10/05/2020 8:18 PM Workstation Name: [id number]
[2020-10-05 20:26] LABS: Basophils % (Auto) 0.4 % (0.0-1.8); Eosinophils # (Auto) 0.2 K/mm3 (0.0-0.4); Eosinophils % (Auto) 1.5 % (0.0-4.3); Hematocrit 35.9 % (30.3-42.9); Hemoglobin 11.3 gm/dl (10.1-14.3); Lymphocytes # (Auto) 3.1 K/mm3 (1.2-5.4); Lymphocytes % (Auto) 26.7 % (13.4-35.0); Mean Corpuscular HGB Conc 31 % (30-34); Monocytes % (Auto) 8.4 % (0.0-7.3); Platelet Count 329 K/mm3 (140-440); Red Blood Count 5.16 M/mm3 (3.65-5.03); Red Cell Distribution Width 16.2 % (13.2-15.2)
[2020-10-05 20:29] LABS: Mean Corpuscular Volume 70 fl (79-97)
[2020-10-05 20:49] LABS: Albumin 3.9 g/dL (3.9-5); Calcium 9.3 mg/dL (8.4-10.2)
--- NOTE | 2020-10-05 20:54 | Emergency Department Report ---
ED Dizziness HPI - General Chief Complaint: Dizziness Stated Complaint: DIZZY Time Seen by Provider: 10/05/20 19:29 Source: patient Mode of arrival: Ambulatory Limitations: No Limitations - History of Present Illness Initial Comments: The patient was evaluated in the emergency department for symptoms described in the history of present illness. He/she was evaluated in the context of the global COVID-19 pandemic, which necessitated consideration that the patient might be at risk for infection with the virus that causes COVID-19. Institutional protocols and algorithms that pertain to the evaluation of patients at risk for COVID-19 are in a state of rapid change based on information released by regulatory bodies including the CDC and federal and state organizations. These policies and algorithms were followed during the patient's care in the emergency department. Please note that these policies, procedures and recommendations changed on a rapid basis. 55-year-old female presents to the emergency room for 1 day history of dizziness. Patient states that it feels like the room is spinning. She admits to some mild nausea but no vomiting. She states that she has a history of vertigo and has been out of her medication. Patient also comes in complaining of burning with urination and a little back pain. Patient states this has been going on for a day. Patient has a history of seizure disorder diabetes hypertension and has been off her medications for 3 days. 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 Patient denies any new weaknesses. Patient takes Keppra, Metformin and metoprolol. Patient denies any chest pain or shortness of breath. She denies any vaginal discharge or vaginal bleeding and states she has had a hysterectomy. She does admit to dysuria. No fevers and no chills. MD Complaint: dizziness Onset/Timin -: days(s) Timing: gradual onset (After cleaning her right ear which she reports is normal for her vertigo to start.) Description: "room spinning" History of Same: Yes History of Trauma: No Severity: mild Improves With: nothing Worsens With: nothing Associated Symptoms: denies: ataxia, chest pain, confusion, cough, fever/chills, loss of appetite - Related Data Home Medications Medication Instructions Recorded Confirmed Last Taken Metoprolol Succinate [Kapspargo 25 mg PO DAILY 08/30/19 05/26/20 08/29/19 Sprinkle] Omeprazole 40 mg PO DAILY 08/30/19 05/26/20 08/29/19 Metformin HCl [metFORMIN] 1 tab PO BID 05/26/20 05/26/20 Unknown carBAMazepine [Tegretol] 200 mg PO TID 05/26/20 05/26/20 Unknown Previous Rx's Medication Instructions Recorded Last Taken Type Meclizine [Antivert] 25 mg PO TID PRN #15 tablet 05/26/20 Unknown Rx Metoclopramide [Reglan] 10 mg PO Q6HR PRN #15 tab 05/26/20 Unknown Rx Nitrofurantoin [place]/M-Cryst 100 mg PO Q12HR #14 capsule 05/26/20 Unknown Rx [Macrobid CAP] Meclizine [Antivert] 25 mg PO TID PRN #15 tablet 10/05/20 Unknown Rx Allergies Allergy/AdvReac Type Severity Reaction Status Date / Time codeine Allergy Rash Verified 08/30/19 10:41 Iodinated Contrast Media Allergy Hives Verified 08/30/19 10:41 levofloxacin [From Levaquin] Allergy Hives Verified 08/30/19 10:41 Penicillins Allergy Rash Verified 08/30/19 10:41 phenytoin sodium Allergy Rash Verified 08/30/19 10:41 [From Dilantin] phenytoin sodium extended Allergy Rash Verified 08/30/19 10:41 [From Dilantin] Sulfa (Sulfonamide Allergy Rash Verified 08/30/19 10:41 Antibiotics) ED Review of Systems ROS: Stated complaint: DIZZY Other details as noted in HPI Comment: All other systems reviewed and negative ED Past Medical Hx - Past Medical History Previous Medical History?: Yes Hx Hypertension: Yes Hx CVA: Yes Hx Diabetes: Yes Hx GERD: Yes Hx Seizures: Yes Hx Kidney Stones: Yes Hx Psychiatric Treatment: Yes (depression) Hx Asthma: No Hx COPD: No Hx HIV: No Additional medical history: h/o ulcers, DVT. vertigo - Surgical History Past Surgical History?: Yes Hx Appendectomy: Yes Additional Surgical History: colon resection, sinus tumors removal. hysterectomy - Social History Smoking Status: Former Smoker Substance Use Type: Alcohol, Prescribed - Medications Home Medications: Home Medications Medication Instructions Recorded Confirmed Last Taken Type Metoprolol Succinate [Kapspargo 25 mg PO DAILY 08/30/19 05/26/20 08/29/19 History Sprinkle] Omeprazole 40 mg PO DAILY 08/30/19 05/26/20 08/29/19 History Meclizine [Antivert] 25 mg PO TID PRN #15 tablet 05/26/20 Unknown Rx Metformin HCl [metFORMIN] 1 tab PO BID 05/26/20 05/26/20 Unknown History Metoclopramide [Reglan] 10 mg PO Q6HR PRN #15 tab 05/26/20 Unknown Rx Nitrofurantoin [place]/M-Cryst 100 mg PO Q12HR #14 capsule 05/26/20 Unknown Rx [Macrobid CAP] carBAMazepine [Tegretol] 200 mg PO TID 05/26/20 05/26/20 Unknown History Meclizine [Antivert] 25 mg PO TID PRN #15 tablet 10/05/20 Unknown Rx ED Physical Exam - General Limitations: No Limitations General appearance: alert, in no apparent distress - Head Head exam: Present: atraumatic, normocephalic - Eye Eye exam: Present: normal appearance - ENT ENT exam: Present: mucous membranes moist - Neck Neck exam: Present: normal inspection, full ROM - Respiratory Respiratory exam: Present: normal lung sounds bilaterally. Absent: respiratory distress, accessory muscle use - Cardiovascular Cardiovascular Exam: Present: regular rate, normal rhythm. Absent: systolic murmur, diastolic murmur, rubs, gallop - GI/Abdominal GI/Abdominal exam: Present: soft. Absent: distended, tenderness - Back Exam Back exam: Present: normal inspection, full ROM - Expanded Neurological Exam Expanded Cranial nerves: EOM's Intact: Normal, Gag Reflex: Normal, Tongue Deviation: Normal, Nystagmus: Normal, Facial Sensation: Normal, Facial Palsy with Forehead Movement: Normal, Facial Palsy without Forehead Movement: Normal Cerebellar function: Finger to Nose: Abnormal Right, Heel to Morgan: Abnormal R ight (Right leg weakness chronic), Romberg: Normal Upper motor neuron: Micheal Neglect: Normal, Pronator Drift: Normal, Sensory Extinction: Normal Sensory exam: Upper Extremity Light Touch: Normal, Upper Extremity Pin Prick: Normal, Upper Extremity Temperature: Normal, UE 2 Point Discrimination: Normal, Lower Extremity Light Touch: Normal, Lower Extremity Pin Prick: Normal, Lower Extremity Temperature: Normal, LE 2 Point Discrimination: Normal Motor strength exam: RUE: 4, LUE: 4, RLE: 4, LLE: 4 Best Eye Response (Berta): (4) open spontaneously Best Motor Response (Berta): (6) obeys commands Best Verbal Response ([place]): (5) oriented Berta Total: 15 - Psychiatric Psychiatric exam: Present: normal affect, normal mood - Skin Skin exam: Present: warm, dry, intact, normal color. Absent: rash ED Course Vital Signs 10/05/20 18:18 Temperature 97.9 F Pulse Rate 85 Respiratory 16 Rate Blood Pressure 136/92 O2 Sat by Pulse 97 Oximetry ED Medical Decision Making - Lab Data Result diagrams: 10/05/20 19:47 10/05/20 19:47 - Radiology Data Radiology results: report reviewed Referring Physician:LIYAH PRITCHETTPatient Name:JEFF FLORESPatient ID:[id number] of :[id number]:FemaleAccession:[id number] Date:[id number] Status:[place] [address] Cat Scan Report Signed Patient: JEFF FLORES MR#: [id number] : 1965 Acct:[id number] Age/Sex: 55 / F ADM Date: 10/05/20 Loc: ED Attending Dr: Ordering Physician: PIPER EARL Date of Service: 10/05/20 Procedure(s): CT head/brain wo con Accession Number(s): [id number] cc: PIPER EARL CT BRAIN: 10/05/2020 INDICATION / CLINICAL INFORMATION: dizziness, headache. COMPARISON: 05/26/2020 FINDINGS: BRAIN/INTRACRANIAL STRUCTURES: Unenhanced CT images of the brain were obtained and compared to the most recent prior exam from 05/26/2020. There is been no change. There is no evidence of acute abnormality. Ventricles and sulci are normal in size and shape. There is no evidence of acute ischemic injury, hemorrhage, or mass. There are no abnormal extra- axial fluid collections. EXTRACRANIAL STRUCTURES: Unremarkable. IMPRESSION: No acute abnormality. No change when compared to 05/26/2020. All CT scans at this location are performed using dose reduction to ALARA by means of automated exposure control. Signer Name: Herman Rojo MD Signed: 10/05/2020 8:18 PM Workstation Name: [id number] - Medical Decision Making 55-year-old female presents to the emergency room for 1 day history of dizziness. Patient states that it feels like the room is spinning. She admits to some mild nausea but no vomiting. She states that she has a history of vertigo and has been out of her medication. Patient also comes in complaining of burning with urination and a little back pain. Patient states this has been going on for a day. Patient has a history of seizure disorder diabetes hypertension and has been off her medications for 3 days. 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 Patient denies any new weaknesses. Patient takes Keppra, Metformin and metoprolol. Patient denies any chest pain or shortness of breath. She denies any vaginal discharge or vaginal bleeding and states she has had a hysterectomy. She does admit to dysuria. No fevers and no chills. Labs are stable CT scan is negative. Critical care attestation.: If time is entered above; I have spent that time in minutes in the direct care of this critically ill patient, excluding procedure time. ED Disposition Clinical Impression: Vertigo Disposition: DC-01 TO HOME OR SELFCARE Is pt being admited?: No Does the pt Need Aspirin: No Condition: Stable Instructions: How to Perform the Terry Maneuver Additional Instructions: CT scan is negative for any acute abnormalities. Labs are unremarkable. Take your Antivert use the exercise I have showed you in in your discharge summary. Do not operate heavy machinery while taking Antivert. Follow-up with your primary care provider. Be sure to increase your water intake. Prescriptions: Meclizine [Antivert] 25 mg PO TID PRN #15 tablet PRN Reason: Vertigo Referrals: PRIMARY CARE, [Primary Care Provider] - 3-5 Days [facility] [Provider Group] - 3-5 Days
[2020-10-05 21:02] LABS: Bacteria,Urine 1+ /HPF (Negative); Bilirubin,Urine SM (Negative); Blood,Urine NEG (Negative); Color,Urine Yellow (Yellow); Hyaline Casts,Urine 1 /LPF; Mucus,Urine 2+ /HPF
[2020-10-05 21:17] LABS: Ictotest,Urine Negative (Negative)
== END 2020-10-05 22:14 | disposition home or self-care (01) ==
LOC: ED 17:47
DX: R42 Dizziness and giddiness (principal); I10 Essential (primary) hypertension; E11.9 Type 2 diabetes mellitus without complications; K21.9 Gastro-esophageal reflux disease without esophagitis; Z86.73 Personal history of transient ischemic attack (TIA), and cerebral infarction without residual deficits; R56.9 Unspecified convulsions; F32.9 Major depressive disorder, single episode, unspecified; Z90.49 Acquired absence of other specified parts of digestive tract; Z98.890 Other specified postprocedural states; Z90.710 Acquired absence of both cervix and uterus; Z87.891 Personal history of nicotine dependence; Z79.84 Long term (current) use of oral hypoglycemic drugs; Z79.899 Other long term (current) drug therapy; Z88.0 Allergy status to penicillin; Z88.8 Allergy status to other drugs, medicaments and biological substances
CPT/HCPCS: 36415; 70450; 80053; 81001; 82550; 83735; 85025; 93005

== ENCOUNTER 2021-04-24 11:55 | Outpatient (CLI) | payer MEDICAID ==
[2021-04-24 12:24] LABS: Basophils # (Auto) 0.1 K/mm3 (0.0-0.1); Basophils % (Auto) 0.7 % (0.0-1.8); Eosinophils # (Auto) 0.1 K/mm3 (0.0-0.4); Eosinophils % (Auto) 0.9 % (0.0-4.3); Hematocrit 36.8 % (30.3-42.9); Hemoglobin 11.4 gm/dl (10.1-14.3); Lymphocytes # (Auto) 2.7 K/mm3 (1.2-5.4); Lymphocytes % (Auto) 24.7 % (13.4-35.0); Mean Corpuscular HGB Conc 31 % (30-34); Monocytes # (Auto) 0.8 K/mm3 (0.0-0.8); Monocytes % (Auto) 7.4 % (0.0-7.3); Platelet Count 350 K/mm3 (140-440); Red Blood Count 5.52 M/mm3 (3.65-5.03)
[2021-04-24 12:27] LABS: Mean Corpuscular Volume 67 fl (79-97)
[2021-04-24 12:51] LABS: Alanine Aminotransferase 10 units/L (7-56); Albumin 4.7 g/dL (3.9-5); BUN/Creatinine Ratio 21; Blood Urea Nitrogen 19 mg/dL (7-17); Calcium 9.9 mg/dL (8.4-10.2); Chol/HDL Ratio 2.87 %; HDL Cholesterol 56 mg/dL (40-59); Hemolysis Index 0; LDL Cholesterol,Direct 101 mg/dL (50-130)
[2021-04-24 13:29] LABS: Bilirubin,Urine NEG (Negative); Blood,Urine NEG (Negative); Color,Urine Yellow (Yellow); Mucus,Urine FEW /HPF; Protein,Urine <15 mg/dL mg/dL (Negative); Urobilinogen,Urine < 2.0 mg/dL (<2.0)
[2021-04-28 19:38] LABS: Vitamin D, 25-OH, D2 <4 ng/mL
== END 2021-04-24 11:56 | disposition home or self-care (01) ==
LOC: LAB 11:55
PROVIDERS: ATTEND Internal Medicine
DX: Z13.29 Encounter for screening for other suspected endocrine disorder (principal); Z00.00 Encounter for general adult medical examination without abnormal findings; E11.65 Type 2 diabetes mellitus with hyperglycemia; E78.5 Hyperlipidemia, unspecified; E55.9 Vitamin D deficiency, unspecified; N39.0 Urinary tract infection, site not specified; D50.9 Iron deficiency anemia, unspecified
CPT/HCPCS: 36415; 80053; 80061; 81001; 82306; 83036; 84443; 85025

== ENCOUNTER 2021-06-15 08:59 | Emergency (ER) | payer MEDICAID ==
[2021-06-15 09:16] VITALS: BP 130/93
--- NOTE | 2021-06-15 09:34 | Emergency Department Report ---
ED ENT HPI - General Chief complaint: Sore Throat Stated complaint: SORE THROAT/NAUSEA Time Seen by Provider: 06/15/21 09:27 Source: patient Mode of arrival: Ambulatory Limitations: No Limitations - History of Present Illness Initial comments: 56-year-old female presents to the emergency room complaining of a sore throat for a day #2. She also reports intermittent nausea. She states has been taken ibuprofen but has not been able to eat. She states that she just feels a little fatigued. She is not vaccinated. She is scheduled to go get her vaccination on Wednesday. She has a past medical history of stroke, diabetes, GERD hypertension depression history of ulcers vertigo DVT. Primary care provider is Dr. Grisel Martinez states that she had a fever on Wednesday and was not able to see her carrier washer oncologist. MD complaint: sore throat Onset/Timin -: days(s) Location: throat Severity: moderate Consistency: constant Improves with: none Worsens with: none Associated Symptoms: fever, pain with swallowing - Related Data Home Medications Medication Instructions Recorded Confirmed Last Taken Metoprolol Succinate [Kapspargo 25 mg PO DAILY 08/30/19 05/26/20 08/29/19 Sprinkle] Omeprazole 40 mg PO DAILY 08/30/19 05/26/20 08/29/19 Metformin HCl [metFORMIN] 1 tab PO BID 05/26/20 05/26/20 Unknown carBAMazepine [Tegretol] 200 mg PO TID 05/26/20 05/26/20 Unknown Previous Rx's Medication Instructions Recorded Last Taken Type Meclizine [Antivert] 25 mg PO TID PRN #15 tablet 05/26/20 Unknown Rx Metoclopramide [Reglan] 10 mg PO Q6HR PRN #15 tab 05/26/20 Unknown Rx Nitrofurantoin [place]/M-Cryst 100 mg PO Q12HR #14 capsule 05/26/20 Unknown Rx [Macrobid CAP] Meclizine [Antivert] 25 mg PO TID PRN #15 tablet 10/05/20 Unknown Rx Ondansetron [Zofran Odt] 4 mg PO Q8HR #8 tab.rapdis 06/15/21 Unknown Rx Allergies Allergy/AdvReac Type Severity Reaction Status Date / Time codeine Allergy Rash Verified 03/16/21 11:52 Iodinated Contrast Media Allergy Hives Verified 03/16/21 11:52 levofloxacin [From Levaquin] Allergy Hives Verified 03/16/21 11:52 Penicillins Allergy Rash Verified 03/16/21 11:52 phenytoin sodium Allergy Rash Verified 03/16/21 11:52 [From Dilantin] phenytoin sodium extended Allergy Rash Verified 03/16/21 11:52 [From Dilantin] Sulfa (Sulfonamide Allergy Rash Verified 03/16/21 11:52 Antibiotics) ED Dental HPI - General Chief complaint: Sore Throat Stated complaint: SORE THROAT/NAUSEA Time Seen by Provider: 06/15/21 09:27 Source: patient Mode of arrival: Ambulatory Limitations: No Limitations - Related Data Home Medications Medication Instructions Recorded Confirmed Last Taken Metoprolol Succinate [Kapspargo 25 mg PO DAILY 08/30/19 05/26/20 08/29/19 Sprinkle] Omeprazole 40 mg PO DAILY 08/30/19 05/26/20 08/29/19 Metformin HCl [metFORMIN] 1 tab PO BID 05/26/20 05/26/20 Unknown carBAMazepine [Tegretol] 200 mg PO TID 05/26/20 05/26/20 Unknown Previous Rx's Medication Instructions Recorded Last Taken Type Meclizine [Antivert] 25 mg PO TID PRN #15 tablet 05/26/20 Unknown Rx Metoclopramide [Reglan] 10 mg PO Q6HR PRN #15 tab 05/26/20 Unknown Rx Nitrofurantoin [place]/M-Cryst 100 mg PO Q12HR #14 capsule 05/26/20 Unknown Rx [Macrobid CAP] Meclizine [Antivert] 25 mg PO TID PRN #15 tablet 10/05/20 Unknown Rx Ondansetron [Zofran Odt] 4 mg PO Q8HR #8 tab.rapdis 06/15/21 Unknown Rx Allergies Allergy/AdvReac Type Severity Reaction Status Date / Time codeine Allergy Rash Verified 03/16/21 11:52 Iodinated Contrast Media Allergy Hives Verified 03/16/21 11:52 levofloxacin [From Levaquin] Allergy Hives Verified 03/16/21 11:52 Penicillins Allergy Rash Verified 03/16/21 11:52 phenytoin sodium Allergy Rash Verified 03/16/21 11:52 [From Dilantin] phenytoin sodium extended Allergy Rash Verified 03/16/21 11:52 [From Dilantin] Sulfa (Sulfonamide Allergy Rash Verified 03/16/21 11:52 Antibiotics) ED Review of Systems ROS: Stated complaint: SORE THROAT/NAUSEA Other details as noted in HPI Comment: All other systems reviewed and negative ED Past Medical Hx - Past Medical History Previous Medical History?: Yes Hx Hypertension: Yes Hx CVA: Yes Hx Diabetes: Yes Hx GERD: Yes Hx Seizures: Yes Hx Kidney Stones: Yes Hx Psychiatric Treatment: Yes (depression) Hx Asthma: No Hx COPD: No Hx HIV: No Additional medical history: h/o ulcers, DVT. vertigo - Surgical History Past Surgical History?: Yes Hx Appendectomy: Yes Additional Surgical History: colon resection, sinus tumors removal. hysterectomy - Social History Smoking Status: Former Smoker Substance Use Type: None - Medications Home Medications: Home Medications Medication Instructions Recorded Confirmed Last Taken Type Metoprolol Succinate [Kapspargo 25 mg PO DAILY 08/30/19 05/26/20 08/29/19 History Sprinkle] Omeprazole 40 mg PO DAILY 08/30/19 05/26/20 08/29/19 History Meclizine [Antivert] 25 mg PO TID PRN #15 tablet 05/26/20 Unknown Rx Metformin HCl [metFORMIN] 1 tab PO BID 05/26/20 05/26/20 Unknown History Metoclopramide [Reglan] 10 mg PO Q6HR PRN #15 tab 05/26/20 Unknown Rx Nitrofurantoin [place]/M-Cryst 100 mg PO Q12HR #14 capsule 05/26/20 Unknown Rx [Macrobid CAP] carBAMazepine [Tegretol] 200 mg PO TID 05/26/20 05/26/20 Unknown History Meclizine [Antivert] 25 mg PO TID PRN #15 tablet 10/05/20 Unknown Rx Ondansetron [Zofran Odt] 4 mg PO Q8HR #8 tab.rapdis 06/15/21 Unknown Rx ED Physical Exam - General Limitations: No Limitations General appearance: alert, in no apparent distress - Head Head exam: Present: atraumatic, normocephalic - Eye Eye exam: Present: normal appearance - ENT ENT exam: Present: normal orophraynx, mucous membranes moist, normal external ear exam - Neck Neck exam: Present: normal inspection, full ROM - Respiratory Respiratory exam: Absent: respiratory distress, accessory muscle use - Cardiovascular Cardiovascular Exam: Present: regular rate - Back Exam Back exam: Present: normal inspection - Neurological Exam Neurological exam: Present: alert, oriented X3, normal gait - Psychiatric Psychiatric exam: Present: normal affect, normal mood - Skin Skin exam: Present: warm, dry, intact, normal color. Absent: rash ED Course Vital Signs 06/15/21 09:16 Temperature 97.6 F Pulse Rate 94 H Respiratory 20 Rate Blood Pressure 130/93 [Right] O2 Sat by Pulse 99 Oximetry ED Medical Decision Making - Lab Data Laboratory Tests 06/15/21 Unknown Group A Strep Rapid Negative - Medical Decision Making 56-year-old female presents to the emergency room complaining of a sore throat for a day #2. She also reports intermittent nausea. She states has been taken ibuprofen but has not been able to eat. She states that she just feels a little fatigued. She is not vaccinated. She is scheduled to go get her vaccination on Wednesday. She has a past medical history of stroke, diabetes, GERD hypertension depression history of ulcers vertigo DVT. Primary care provider is Dr. Grisel Martinez states that she had a fever on Wednesday of 101 and was not able to see her carrier washer oncologist. Her culture collected and sent by this provider. Critical care attestation.: If time is entered above; I have spent that time in minutes in the direct care of this critically ill patient, excluding procedure time. ED Disposition Clinical Impression: Sore throat (viral), Nausea Disposition: - TO HOME OR SELFCARE Is pt being admited?: No Does the pt Need Aspirin: No Condition: Stable Instructions: Sore Throat, [id number], Nausea, Adult Additional Instructions: Strep test is negative. Continue with ibuprofen warm salt water gargles Tylenol. Take Zofran as needed for nausea follow-up with your primary care provider. Prescriptions: Ondansetron [Zofran Odt] 4 mg PO Q8HR #8 tab.[email or web address] Referrals: Your, primary care provider [Other] - 3-5 Days Time of Disposition: 10:27
== END 2021-06-15 10:31 | disposition home or self-care (01) ==
LOC: ED 08:59
DX: J02.9 Acute pharyngitis, unspecified (principal); R11.0 Nausea; E11.9 Type 2 diabetes mellitus without complications; I10 Essential (primary) hypertension; Z86.73 Personal history of transient ischemic attack (TIA), and cerebral infarction without residual deficits; Z88.1 Allergy status to other antibiotic agents; Z88.0 Allergy status to penicillin; Z88.2 Allergy status to sulfonamides; Z88.8 Allergy status to other drugs, medicaments and biological substances
CPT/HCPCS: 87116; 87430; 99283

== ENCOUNTER 2021-11-07 17:43 | Emergency (ER) | payer MEDICAID ==
[2021-11-07 17:47] VITALS: BP 160/93
== END 2021-11-07 20:10 | disposition left against medical advice (07) ==
LOC: ED 17:43
DX: R11.2 Nausea with vomiting, unspecified (principal); Z53.21 Procedure and treatment not carried out due to patient leaving prior to being seen by health care provider

== ENCOUNTER 2021-12-01 13:39 | Emergency (ER) | payer MEDICAID ==
--- NOTE | 2021-12-01 15:42 | XRay Report ---
CHEST 2 VIEWS INDICATION / CLINICAL INFORMATION: cough. COMPARISON: 05/26/2020 FINDINGS: SUPPORT DEVICES: None. HEART / MEDIASTINUM: No significant abnormality. LUNGS / PLEURA: No significant pulmonary or pleural abnormality. No pneumothorax. ADDITIONAL FINDINGS: No significant additional findings. IMPRESSION: 1. No acute findings. No interval change. Signer Name: Cesilia Dubon MD Signed: 12/01/2021 3:37 PM Workstation Name: [id number]
--- NOTE | 2021-12-01 16:26 | Emergency Department Report ---
ED General Adult HPI - General Chief complaint: Upper Respiratory Infection Stated complaint: COUGH Time Seen by Provider: 12/01/21 15:11 Source: patient Mode of arrival: Ambulatory Limitations: No Limitations - History of Present Illness Initial comments: 56-year-old female patient presents with complaints of cough x2 weeks. Patient states she has a new granddaughter and is just wanting to get checked to be safe to be around her granddaughter. She denies any shortness of breath, hemoptysis, chest pain, loss of taste or smell, leg pain/swelling, recent long travel, history of DVT/PE/cancer, or hormone use. She is not vaccinated against COVID-19 and has not had any recent COVID-19 testing performed. She reports the cough is nonproductive and that she has not tried any OTC medications for symptoms. Patient also denies being a smoker or any fever/chills/. She states the cough occurs mainly at night with lying down. She admits to history of GERD that is uncontrolled and that she recently has been taking her omeprazole at night. - Related Data Home Medications Medication Instructions Recorded Confirmed Last Taken Metoprolol Succinate [[place]sp[place] 25 mg PO DAILY 08/30/19 05/26/20 08/29/19 Sprinkle] Omeprazole 40 mg PO DAILY 08/30/19 05/26/20 08/29/19 Metformin HCl [metFORMIN] 1 tab PO BID 05/26/20 05/26/20 Unknown carBAMazepine [Tegretol] 200 mg PO TID 05/26/20 05/26/20 Unknown Previous Rx's Medication Instructions Recorded Last Taken Type Meclizine [Antivert] 25 mg PO TID PRN #15 tablet 05/26/20 Unknown Rx Metoclopramide [Reglan] 10 mg PO Q6HR PRN #15 tab 05/26/20 Unknown Rx Nitrofurantoin [place]/M-Cryst 100 mg PO Q12HR #14 capsule 05/26/20 Unknown Rx [Macrobid CAP] Meclizine [Antivert] 25 mg PO TID PRN #15 tablet 10/05/20 Unknown Rx Ondansetron [Zofran Odt] 4 mg PO Q8HR #8 tab.rapdis 06/15/21 Unknown Rx Benzonatate 200 mg PO TID PRN #30 cap 12/01/21 Unknown Rx Allergies Allergy/AdvReac Type Severity Reaction Status Date / Time codeine Allergy Rash Verified 12/01/21 14:02 Iodinated Contrast Media Allergy Hives Verified 12/01/21 14:02 levofloxacin [From Levaquin] Allergy Hives Verified 12/01/21 14:02 Penicillins Allergy Rash Verified 12/01/21 14:02 phenytoin sodium Allergy Rash Verified 12/01/21 14:02 [From Dilantin] phenytoin sodium extended Allergy Rash Verified 12/01/21 14:02 [From Dilantin] Sulfa (Sulfonamide Allergy Rash Verified 12/01/21 14:02 Antibiotics) ED Review of Systems ROS: Stated complaint: COUGH Other details as noted in HPI Constitutional: denies: chills, fever, malaise Respiratory: cough. denies: shortness of breath, SOB with exertion Cardiovascular: denies: chest pain Gastrointestinal: denies: abdominal pain ED Past Medical Hx - Past Medical History Hx Hypertension: Yes Hx CVA: Yes Hx Diabetes: Yes Hx GERD: Yes Hx Seizures: Yes Hx Kidney Stones: Yes Hx Psychiatric Treatment: Yes (depression) Hx Asthma: No Hx COPD: No Hx HIV: No Additional medical history: h/o ulcers, DVT. vertigo - Surgical History Hx Appendectomy: Yes Additional Surgical History: colon resection, sinus tumors removal. hysterectomy - Social History Smoking Status: Former Smoker Substance Use Type: None - Medications Home Medications: Home Medications Medication Instructions Recorded Confirmed Last Taken Type Metoprolol Succinate [[place]sp[place] 25 mg PO DAILY 08/30/19 05/26/20 08/29/19 History Sprinkle] Omeprazole 40 mg PO DAILY 08/30/19 05/26/20 08/29/19 History Meclizine [Antivert] 25 mg PO TID PRN #15 tablet 05/26/20 Unknown Rx Metformin HCl [metFORMIN] 1 tab PO BID 05/26/20 05/26/20 Unknown History Metoclopramide [Reglan] 10 mg PO Q6HR PRN #15 tab 05/26/20 Unknown Rx Nitrofurantoin [place]/M-Cryst 100 mg PO Q12HR #14 capsule 05/26/20 Unknown Rx [Macrobid CAP] carBAMazepine [Tegretol] 200 mg PO TID 05/26/20 05/26/20 Unknown History Meclizine [Antivert] 25 mg PO TID PRN #15 tablet 10/05/20 Unknown Rx Ondansetron [Zofran Odt] 4 mg PO Q8HR #8 tab.rapdis 06/15/21 Unknown Rx Benzonatate 200 mg PO TID PRN #30 cap 12/01/21 Unknown Rx ED Physical Exam - General Limitations: No Limitations ED Course Vital Signs 12/01/21 12/01/21 12/01/21 14:07 16:08 17:25 Temperature 97.7 F 98.2 F Pulse Rate 105 H 86 104 H Respiratory 20 16 Rate Blood Pressure 122/96 Blood Pressure 156/96 [Right] O2 Sat by Pulse 96 96 Oximetry 12/01/21 20:02 Temperature Pulse Rate 92 H Respiratory Rate Blood Pressure Blood Pressure [Right] O2 Sat by Pulse Oximetry ED Medical Decision Making - Medical Decision Making 56-year-old female patient presents with complaints of cough x2 weeks. Patient states she has a new granddaughter and is just wanting to get checked to be safe to be around her granddaughter. She denies any shortness of breath, hemoptysis, chest pain, loss of taste or smell, leg pain/swelling, recent long travel, history of DVT/PE/cancer, or hormone use. She is not vaccinated against COVID-19 and has not had any recent COVID-19 testing performed. She reports the cough is nonproductive and that she has not tried any OTC medications for symptoms. Patient also denies being a smoker or any fever/chills/. She states the cough occurs mainly at night with lying down. She admits to history of GERD that is uncontrolled and that she recently has been taking her omeprazole at night. Lungs are clear to auscultation on exam bilaterally. Chest x-ray is normal. Vitals are within normal limits. Patient is well-appearing and stable for discharge home. Recommend outpatient COVID-19 testing within 24 to 48 hours according to results are back. Discussed how to better control GERD and signs and symptoms that should prompt immediate return to the ED with patient who verbalized understanding. Critical care attestation.: If time is entered above; I have spent that time in minutes in the direct care of this critically ill patient, excluding procedure time. ED Disposition Clinical Impression: Cough Disposition: HOME / SELF CARE / HOMELESS Is pt being admited?: No Condition: Stable Instructions: Cough, Adult, [id number] Prescriptions: Benzonatate 200 mg PO TID PRN #30 cap PRN Reason: Cough Referrals: PRIMARY CARE,MD [Primary Care Provider] - 3-5 Days
[2021-12-01 17:27] VITALS: BP 156/96
== END 2021-12-01 17:28 | disposition home or self-care (01) ==
LOC: ED 13:39
DX: R05.9 Cough, unspecified (principal); Z90.89 Acquired absence of other organs; I10 Essential (primary) hypertension; E11.9 Type 2 diabetes mellitus without complications; Z88.5 Allergy status to narcotic agent; Z91.041 Radiographic dye allergy status; Z88.1 Allergy status to other antibiotic agents; Z88.8 Allergy status to other drugs, medicaments and biological substances; Z88.2 Allergy status to sulfonamides
CPT/HCPCS: 71046; 99283

== ENCOUNTER 2022-07-14 09:17 | Inpatient (IN) | payer MEDICAID ==
[2022-07-14 12:17] LABS: Basophils % (Auto) 0.3 % (0.0-1.8); Eosinophils # (Auto) 0.1 K/mm3 (0.0-0.4); Eosinophils % (Auto) 0.4 % (0.0-4.3); Hematocrit 35.1 % (30.3-42.9); Hemoglobin 10.8 gm/dl (10.1-14.3); Lymphocytes % (Auto) 13.6 % (13.4-35.0); Mean Corpuscular HGB Conc 31 % (30-34); Monocytes % (Auto) 7.2 % (0.0-7.3); Platelet Count 337 K/mm3 (140-440); Red Blood Count 5.31 M/mm3 (3.65-5.03); Red Cell Distribution Width 17.7 % (13.2-15.2)
[2022-07-14 12:24] LABS: Mean Corpuscular Volume 66 fl (79-97)
[2022-07-14 12:33] LABS: Alanine Aminotransferase 10 units/L (7-56); Albumin 4.2 g/dL (3.9-5); BUN/Creatinine Ratio 19; Blood Urea Nitrogen 15 mg/dL (7-17); Calcium 9.3 mg/dL (8.4-10.2); Hemolysis Index 0
[2022-07-14 12:42] LABS: Bilirubin,Direct < 0.2 mg/dL (0-0.2)
[2022-07-14] MEDS ORDERED: ONDANSETRON 4 MG/2 ML INJ IV ONE (12:59)
[2022-07-14] MEDS ORDERED: SODIUM CHLORIDE 0.9% 1000 ML 1,000 ML IV ONE (12:59)
[2022-07-14 14:33] LABS: Hyaline Casts,Urine 1 /LPF; Mucus,Urine 3+ /HPF
--- NOTE | 2022-07-14 14:50 | Emergency Department Report ---
ED General Adult HPI - General Chief complaint: Nausea/Vomiting/Diarrhea Stated complaint: SICK Time Seen by Provider: 07/14/22 12:47 Source: patient Mode of arrival: Ambulatory Limitations: No Limitations - History of Present Illness Initial comments: 57-year-old female past medical history hypertension diabetes reports to the ER with 4 days generalized abdominal pain with nausea, vomiting, diarrhea. Patient reports she is unable to eat and drink for the last 4 days due to nausea and vomiting. Patient reports watery diarrhea every day for the last 4 days. Patient reports nobody in the house with similar symptoms. Patient reports her pain is about a 6-7 out of 10. Patient reports she does not want any pain medication currently for her pain. Patient denies weakness, dizziness, blurred vision. Patient denies shortness of breath and no chest pain. Patient reports no acute signs and symptoms at this moment. Severity scale (0 -10): 7 - Related Data Home Medications Medication Instructions Recorded Confirmed Last Taken Metoprolol Succinate [Kapspargo 25 mg PO DAILY 08/30/19 05/26/20 08/29/19 Sprinkle] Omeprazole 40 mg PO DAILY 08/30/19 05/26/20 08/29/19 Metformin HCl [metFORMIN] 1 tab PO BID 05/26/20 05/26/20 Unknown carBAMazepine [Tegretol] 200 mg PO TID 05/26/20 05/26/20 Unknown Previous Rx's Medication Instructions Recorded Last Taken Type Meclizine [Antivert] 25 mg PO TID PRN #15 tablet 05/26/20 Unknown Rx Metoclopramide [Reglan] 10 mg PO Q6HR PRN #15 tab 05/26/20 Unknown Rx Nitrofurantoin [place]/M-Cryst 100 mg PO Q12HR #14 capsule 05/26/20 Unknown Rx [Macrobid CAP] Meclizine [Antivert] 25 mg PO TID PRN #15 tablet 10/05/20 Unknown Rx Ondansetron [Zofran Odt] 4 mg PO Q8HR #8 tab.rapdis 06/15/21 Unknown Rx Benzonatate 200 mg PO TID PRN #30 cap 12/01/21 Unknown Rx Allergies Allergy/AdvReac Type Severity Reaction Status Date / Time codeine Allergy Rash Verified 07/14/22 09:36 levofloxacin [From Levaquin] Allergy Hives Verified 07/14/22 09:36 Penicillins Allergy Rash Verified 07/14/22 09:36 phenytoin sodium Allergy Rash Verified 07/14/22 09:36 [From Dilantin] phenytoin sodium extended Allergy Rash Verified 07/14/22 09:36 [From Dilantin] Sulfa (Sulfonamide Allergy Rash Verified 07/14/22 09:36 Antibiotics) ED Review of Systems ROS: Stated complaint: SICK Other details as noted in HPI Comment: All other systems reviewed and negative Gastrointestinal: abdominal pain, nausea, vomiting, diarrhea ED Past Medical Hx - Past Medical History Previous Medical History?: Yes Hx Hypertension: Yes Hx CVA: Yes Hx Diabetes: Yes Hx GERD: Yes Hx Seizures: Yes Hx Kidney Stones: Yes Hx Psychiatric Treatment: Yes (depression) Hx Asthma: No Hx COPD: No Hx HIV: No Additional medical history: h/o ulcers, DVT. vertigo - Surgical History Hx Appendectomy: Yes Additional Surgical History: colon resection, sinus tumors removal. hysterectomy - Social History Smoking Status: Former Smoker Substance Use Type: None - Medications Home Medications: Home Medications Medication Instructions Recorded Confirmed Last Taken Type Metoprolol Succinate [[place] 25 mg PO DAILY 08/30/19 05/26/20 08/29/19 History Sprinkle] Omeprazole 40 mg PO DAILY 08/30/19 05/26/20 08/29/19 History Meclizine [Antivert] 25 mg PO TID PRN #15 tablet 05/26/20 Unknown Rx Metformin HCl [metFORMIN] 1 tab PO BID 05/26/20 05/26/20 Unknown History Metoclopramide [Reglan] 10 mg PO Q6HR PRN #15 tab 05/26/20 Unknown Rx Nitrofurantoin [place]/M-Cryst 100 mg PO Q12HR #14 capsule 05/26/20 Unknown Rx [Macrobid CAP] carBAMazepine [Tegretol] 200 mg PO TID 05/26/20 05/26/20 Unknown History Meclizine [Antivert] 25 mg PO TID PRN #15 tablet 10/05/20 Unknown Rx Ondansetron [Zofran Odt] 4 mg PO Q8HR #8 tab.rapdis 06/15/21 Unknown Rx Benzonatate 200 mg PO TID PRN #30 cap 12/01/21 Unknown Rx ED Physical Exam - General Limitations: No Limitations General appearance: alert, in no apparent distress - Head Head exam: Present: atraumatic, normocephalic - Eye Eye exam: Present: normal appearance - ENT ENT exam: Present: mucous membranes moist - Neck Neck exam: Present: normal inspection - Respiratory Respiratory exam: Present: normal lung sounds bilaterally. Absent: respiratory distress - Cardiovascular Cardiovascular Exam: Present: regular rate, normal rhythm. Absent: systolic murmur, diastolic murmur, rubs, gallop - GI/Abdominal GI/Abdominal exam: Present: soft, distended, tenderness, guarding, normal bowel sounds. Absent: rebound, rigid - Extremities Exam Extremities exam: Present: normal inspection - Back Exam Back exam: Present: normal inspection - Neurological Exam Neurological exam: Present: alert, oriented X3 - Psychiatric Psychiatric exam: Present: normal affect, normal mood - Skin Skin exam: Present: warm, dry, intact, normal color. Absent: rash ED Course Vital Signs 07/14/22 09:32 Temperature 97.3 F L Pulse Rate 89 Respiratory 16 Rate Blood Pressure 119/83 [Right] O2 Sat by Pulse 99 Oximetry - Reevaluation(s) Reevaluation #1: 07/14/22 17:18 Patient reports she still feels nauseated after receiving IV nausea medication and IV fluids. Patient given juice and crackers for p.o. challenge. Patient still reports pain however does not want anything currently for pain and denies pain medication. CT report reviewed and discussed with patient. IMPRESSION: 1. There is dilated small bowel loops which demonstrate bowel wall thickening and there is fecal material seen within the small bowel. This suggests at least partial bowel obstruction. The bowel loops are mildly thickened and there could be a component of underlying enteritis as well. Reevaluation #2: 07/14/22 19:[address] NG into patient, however unsuccessful. Patient reports that she has had nasal surgery in the past but unsure which nostril. Reports she believes it was her left nostril. Right nostril attempted unsuccessful. Nursing staff notified. Nursing staff will attempt to place NG tube. ED Medical Decision Making - Lab Data Result diagrams: 07/14/22 11:41 07/14/22 11:41 Lab Results 07/14/22 07/14/22 07/14/22 Range/Units 11:41 11:41 14:19 WBC 14.4 H (4.5-11.0) K/mm3 RBC 5.31 H (3.65-5.03) M/mm3 Hgb 10.8 (10.1-14.3) gm/dl Hct 35.1 (30.3-42.9) % MCV 66 L (79-97) fl MCH 20 L (28-32) pg MCHC 31 (30-34) % RDW 17.7 H (13.2-15.2) % Plt Count 337 (140-440) K/mm3 Lymph % (Auto) 13.6 (13.4-35.0) % [place] % (Auto) 7.2 (0.0-7.3) % Eos % (Auto) 0.4 (0.0-4.3) % Baso % (Auto) 0.3 (0.0-1.8) % Lymph # (Auto) 2.0 (1.2-5.4) K/mm3 [place] # (Auto) 1.0 H (0.0-0.8) K/mm3 Eos # (Auto) 0.1 (0.0-0.4) K/mm3 Baso # (Auto) 0.0 (0.0-0.1) K/mm3 Seg Neutrophils % 78.5 H (40.0-70.0) % Seg Neutrophils # 11.3 H (1.8-7.7) K/mm3 Sodium 140 (137-145) mmol/L Potassium 4.1 (3.6-5.0) mmol/L Chloride 104.1 (98-107) mmol/L Carbon Dioxide 23 (22-30) mmol/L Anion Gap 17 mmol/L BUN 15 (7-17) mg/dL Creatinine 0.8 (0.6-1.2) mg/dL Estimated GFR > 60 ml/min BUN/Creatinine Ratio 19 % Glucose 103 H (65-100) mg/dL Calcium 9.3 (8.4-10.2) mg/dL Total Bilirubin 0.30 (0.1-1.2) mg/dL Direct Bilirubin < 0.2 (0-0.2) mg/dL Indirect Bilirubin 0.1 mg/dL AST 11 (5-40) units/L ALT 10 (7-56) units/L Alkaline Phosphatase 117 (35-129) units/L Total Protein 7.5 (6.3-8.2) g/dL Albumin 4.2 (3.9-5) g/dL Albumin/Globulin Ratio 1.3 % Lipase 36 (13-60) units/L Urine RBC (Auto) 11.0 (0.0-6.0) /HPF U Epithel Cells (Auto) 3.0 (0-13.0) /HPF - Radiology Data [facility] [address] [place] [address] Cat Scan Report Signed Patient: JEFF FLORES MR#: [id number] : 1965 Acct:[id number] Age/Sex: 57 / F ADM Date: 07/14/22 Loc: ED Attending Dr: Ordering Physician: RC REYES NP Date of Service: 07/14/22 Procedure(s): CT abdomen pelvis w con Accession Number(s): [id number] cc: RC REYES NP CT abdomen pelvis w con INDICATION: abdominal pain with distension 80ml of [id number]. COMPARISON: May 26 2020 TECHNIQUE: Abdominal and pelvic CT exam performed. All CT scans at this location are performed using CT dose reduction for ALARA by means of automated exposure control. FINDINGS: CT ABDOMEN and PELVIS: Lung Bases: No significant abnormality. Liver: No significant abnormality. Biliary: No significant abnormality. Spleen: No significant abnormality. Pancreas: No significant abnormality. Adrenals: No significant abnormality. Kidneys: No significant abnormality. Lymphatics: No lymphadenopathy. Vasculature: No significant abnormality. Bowel: There is mildly dilated small bowel with fecal material seen within the small bowel in the right mid and lower quadrant. The bowel is mildly thickened. There is a change in bowel caliber seen on image 133 of series 2. However, distal to this there is normal caliber bowel within the distal terminal ileum is decompressed. There are dilated arterioles associated with these bowel loops. Postoperative changes to the cecum. Small sliding-type hiatal hernia. Pelvis: No significant abnormality. Osseous Structures: No aggressive osseous lesion. Additional Findings: None IMPRESSION: 1. There is dilated small bowel loops which demonstrate bowel wall thickening and there is fecal material seen within the small bowel. This suggests at least partial bowel obstruction. The bowel loops are mildly thickened and there could be a component of underlying enteritis as well. Signer Name: Nacho Eid MD Signed: 07/14/2022 4:35 PM Workstation Name: [facility] Transcribed By: CS Dictated By: Nacho Eid MD Electronically Authenticated By: Nacho Eid MD Signed Date/Time: 07/14/22 163 DD/ 23 TD/TT: - Medical Decision Making 57-year-old female past medical history hypertension diabetes reports to the ER with 4 days generalized abdominal pain with nausea, vomiting, diarrhea. Patient reports she is unable to eat and drink for the last 4 days due to nausea and vomiting. Patient reports watery diarrhea every day for the last 4 days. Patient reports nobody in the house with similar symptoms. Patient reports her pain is about a 6-7 out of 10. Patient reports she does not want any pain medication currently for her pain. Patient denies weakness, dizziness, blurred vision. Patient denies shortness of breath and no chest pain. Patient reports no acute signs and symptoms at this moment. PEgeneralized abdominal pain with distention noted. There is guarding noted. No rebound tenderness. No acute Collins sign. CMP unremarkable. CBCWBC 14.4, remaining CBC unremarkable. UA unremarkable. Lipase within normal range CT report shows IMPRESSION: 1. There is dilated small bowel loops which demonstrate bowel wall thickening and there is fecal material seen within the small bowel. This suggests at least partial bowel obstruction. The bowel loops are mildly thickened and there could be a component of underlying enteritis as well. CT report discussed with patient as well as lab report. Patient given juice and crackers for p.o. challenge. Patient informed that she is unable to maintain fluids after p.o. challenge. We will be discussing likelihood for admission to the hospital due to fluid intake pain as well as CTs reading of suggestion of partial bowel obstruction versus enteritis. Patient admitted to [facility] for partial SBO. Consulted with Dr. Multani for surgery. Jeannie Lee MD reports she will see patient in the morning for further evaluation. NG tube attempted by this provider unsuccessful. Nursing staff notified and will attempt placement. Vital Signs 07/14/22 09:32 Temperature 97.3 F L Pulse Rate 89 Respiratory 16 Rate Blood Pressure 119/83 [Right] O2 Sat by Pulse 99 Oximetry Lab Results 07/14/22 07/14/22 07/14/22 Range/Units 11:41 11:41 14:19 WBC 14.4 H (4.5-11.0) K/mm3 RBC 5.31 H (3.65-5.03) M/mm3 Hgb 10.8 (10.1-14.3) gm/dl Hct 35.1 (30.3-42.9) % MCV 66 L (79-97) fl MCH 20 L (28-32) pg MCHC 31 (30-34) % RDW 17.7 H (13.2-15.2) % Plt Count 337 (140-440) K/mm3 Lymph % (Auto) 13.6 (13.4-35.0) % [place] % (Auto) 7.2 (0.0-7.3) % Eos % (Auto) 0.4 (0.0-4.3) % Baso % (Auto) 0.3 (0.0-1.8) % Lymph # (Auto) 2.0 (1.2-5.4) K/mm3 [place] # (Auto) 1.0 H (0.0-0.8) K/mm3 Eos # (Auto) 0.1 (0.0-0.4) K/mm3 Baso # (Auto) 0.0 (0.0-0.1) K/mm3 Seg Neutrophils % 78.5 H (40.0-70.0) % Seg Neutrophils # 11.3 H (1.8-7.7) K/mm3 Sodium 140 (137-145) mmol/L Potassium 4.1 (3.6-5.0) mmol/L Chloride 104.1 (98-107) mmol/L Carbon Dioxide 23 (22-30) mmol/L Anion Gap 17 mmol/L BUN 15 (7-17) mg/dL Creatinine 0.8 (0.6-1.2) mg/dL Estimated GFR > 60 ml/min BUN/Creatinine Ratio 19 % Glucose 103 H (65-100) mg/dL Calcium 9.3 (8.4-10.2) mg/dL Total Bilirubin 0.30 (0.1-1.2) mg/dL Direct Bilirubin < 0.2 (0-0.2) mg/dL Indirect Bilirubin 0.1 mg/dL AST 11 (5-40) units/L ALT 10 (7-56) units/L Alkaline Phosphatase 117 (35-129) units/L Total Protein 7.5 (6.3-8.2) g/dL Albumin 4.2 (3.9-5) g/dL Albumin/Globulin Ratio 1.3 % Lipase 36 (13-60) units/L Urine Color Straw (Yellow) Urine Turbidity Clear (Clear) Specific [place] (Man) 1.015 (1.003-1.030) Ur Protein (Man) <30 mg dl (Negative) mg/dL Ur Ketones (Man) Negative (Negative) Ur Nitrite (Man) Negative (Negative) Ur Reducing Substances Not Reportable Urine Bilirubin (Man) Negative (Negative) Urine Ictotest Not Reportable Leukocyte Esterase (Man) Trace (Negative) Urine WBC (Auto) 2.0 (0.0-6.0) /HPF Urine RBC (Auto) 11.0 (0.0-6.0) /HPF U Epithel Cells (Auto) 3.0 (0-13.0) /HPF Urine RBC (Manual) Negative (Negative) Hyaline Casts 1 /LPF Urine Mucus 3+ /HPF Critical care attestation.: If time is entered above; I have spent that time in minutes in the direct care of this critically ill patient, excluding procedure time. ED Disposition Clinical Impression: Partial small bowel obstruction Abdominal pain Qualifiers: Abdominal location: generalized Qualified Code(s): R10.84 - Generalized abdominal pain Disposition: 09 ADMITTED INPATIENT Is pt being admited?: Yes Condition: Stable Referrals: SYDNEE BARBOZA MD [Primary Care Provider] - 3-5 Days
[2022-07-14 14:51] LABS: Color,Urine Straw (Yellow)
--- NOTE | 2022-07-14 16:39 | Cat Scan Report ---
CT abdomen pelvis w con INDICATION: abdominal pain with distension 80ml of [id number]. COMPARISON: May 26 2020 TECHNIQUE: Abdominal and pelvic CT exam performed. All CT scans at this location are performed using CT dose reduction for ALARA by means of automated exposure control. FINDINGS: CT ABDOMEN and PELVIS: Lung Bases: No significant abnormality. Liver: No significant abnormality. Biliary: No significant abnormality. Spleen: No significant abnormality. Pancreas: No significant abnormality. Adrenals: No significant abnormality. Kidneys: No significant abnormality. Lymphatics: No lymphadenopathy. Vasculature: No significant abnormality. Bowel: There is mildly dilated small bowel with fecal material seen within the small bowel in the rig ht mid and lower quadrant. The bowel is mildly thickened. There is a change in bowel caliber seen on image 133 of series 2. However, distal to this there is normal caliber bowel within the distal termin al ileum is decompressed. There are dilated arterioles associated with these bowel loops. Postoperati ve changes to the cecum. Small sliding-type hiatal hernia. Pelvis: No significant abnormality. Osseous Structures: No aggressive osseous lesion. Additional Findings: None IMPRESSION: 1. There is dilated small bowel loops which demonstrate bowel wall thickening and there is fecal mate rial seen within the small bowel. This suggests at least partial bowel obstruction. The bowel loops a re mildly thickened and there could be a component of underlying enteritis as well. Signer Name: Nacho Eid MD Signed: 07/14/2022 4:35 PM Workstation Name: [employer]
[2022-07-14] MEDS ORDERED: diphenhydrAMINE 50 MG/ML VIAL IV ONE (18:09)
[2022-07-14] MEDS ORDERED: ONDANSETRON 4 MG/2 ML INJ IV PRN (19:16)
[2022-07-14] MEDS ORDERED: ALBUTEROL 2.5 MG/3 ML NEBU IH PRN (19:16)
[2022-07-14] MEDS ORDERED: oxyCODONE /ACETAMINOPHEN 5-325MG TAB PO PRN (19:16)
[2022-07-14] MEDS ORDERED: HYDROmorphone 0.5 MG/0.5 ML INJ IV PRN (19:16)
[2022-07-14] MEDS ORDERED: ACETAMINOPHEN 325 MG TAB PO PRN (19:16)
--- NOTE | 2022-07-14 19:19 | History and Physical Report ---
History of Present Illness Chief complaint: My stomach hurts History of present illness: 57 YO Female with GERD, HTN, DM, Seizure Disorder, DM, BPV presents ED for evaluation. Patient reported "my stomach hurts" patient states that over the past 4 days she has experienced multiple episodes of abdominal pain. Patient states that pain is 6-05/2010, intermittent, has become progressively worse over the past 1 day. Patient is unable to tolerate oral diet due to abdominal pain with concomitant nausea and vomiting. Patient transported to [facility] via private vehicle for further care and evaluation of the aforementioned symptoms. The patient was seen and evaluated in the emergency department. All lab and imaging studies reviewed. Patient underwent CT scan of the abdomen and pelvis and was found to have partial bowel obstruction with concomitant colitis complicated by systemic inflammatory response syndrome. Surgery team consulted in ED. Patient admitted to medical floor due to increased risk of worsening symptoms and for medical stabilization. Patient treated with IV fluid resuscitation therapy and bowel rest. Patient denies fever, chills, chest pain, palpitation, ingestion of food/water from new or different sources, bright red blood per rectum, skin rash, recent contact, known exposure to COVID-19. Prior admission on 12/08/2015 reviewed. All medication listed at time of admission has been reconciled. Advanced care planning conducted in ED. Past History Past Medical History: diabetes, GERD, hypertension Past Surgical History: appendectomy, hysterectomy, bowel surgery Social history: Family history: hypertension Medications and Allergies Allergies Allergy/AdvReac Type Severity Reaction Status Date / Time codeine Allergy Rash Verified 07/14/22 09:36 levofloxacin [From Levaquin] Allergy Hives Verified 07/14/22 09:36 Penicillins Allergy Rash Verified 07/14/22 09:36 phenytoin sodium Allergy Rash Verified 07/14/22 09:36 [From Dilantin] phenytoin sodium extended Allergy Rash Verified 07/14/22 09:36 [From Dilantin] Sulfa (Sulfonamide Allergy Rash Verified 07/14/22 09:36 Antibiotics) Home Medications Medication Instructions Recorded Confirmed Last Taken Type Metoprolol Succinate [Kapspargo 25 mg PO DAILY 08/30/19 05/26/20 08/29/19 History Sprinkle] Omeprazole 40 mg PO DAILY 08/30/19 05/26/20 08/29/19 History Meclizine [Antivert] 25 mg PO TID PRN #15 tablet 05/26/20 Unknown Rx Metformin HCl [metFORMIN] 1 tab PO BID 05/26/20 05/26/20 Unknown History Metoclopramide [Reglan] 10 mg PO Q6HR PRN #15 tab 05/26/20 Unknown Rx Nitrofurantoin [place]/M-Cryst 100 mg PO Q12HR #14 capsule 05/26/20 Unknown Rx [Macrobid CAP] carBAMazepine [Tegretol] 200 mg PO TID 05/26/20 05/26/20 Unknown History Meclizine [Antivert] 25 mg PO TID PRN #15 tablet 10/05/20 Unknown Rx Ondansetron [Zofran Odt] 4 mg PO Q8HR #8 tab.rapdis 06/15/21 Unknown Rx Benzonatate 200 mg PO TID PRN #30 cap 12/01/21 Unknown Rx Active Meds: Active Medications Acetaminophen (Acetaminophen 325 Mg Tab) 650 mg PO Q4H PRN PRN Reason: Pain MILD(1-3)/Fever >100.5/PAVON Albuterol (Albuterol 2.5 Mg/3 Ml Nebu) 2.5 mg IH Q4HRT PRN PRN Reason: Shortness Of Breath Hydromorphone HCl (Hydromorphone 0.5 Mg/0.5 Ml Inj) 0.5 mg IV Q13H PRN PRN Reason: Pain , Severe (7-10) Sodium Chloride (Nacl 0.9% 1000 Ml) 1,000 mls @ 125 mls/hr IV DIRECT MAYA Ondansetron HCl (Ondansetron 4 Mg/2 Ml Inj) 4 mg IV Q8H PRN PRN Reason: Nausea And Vomiting Oxycodone/Acetaminophen (Oxycodone /Acetaminophen 5-325mg Tab) 1 tab PO Q6H PRN PRN Reason: Pain, Moderate (4-6) Sodium Chloride (Sodium Chloride 0.9% 10 Ml Flush Syringe) 10 ml IV BID MAYA Sodium Chloride (Sodium Chloride 0.9% 10 Ml Flush Syringe) 10 ml IV PRN PRN PRN Reason: LINE FLUSH Review of Systems Constitutional: no weight loss, no weight gain, no fever, no chills Ears, nose, mouth and throat: no ear pain, no ear discharge, no decreased hearing, no nose pain, no nasal congestion, no nasal discharge Breasts: no change in shape, no swelling, no mass Cardiovascular: no chest pain, no orthopnea, no syncope Respiratory: no cough, no cough with sputum, no hemoptysis, no shortness of breath Gastrointestinal: abdominal pain, nausea, vomiting, no BRBPR, no melena, no hematochezia Genitourinary Female: no pelvic pain, no flank pain, no dysuria, no urinary frequency, no urgency Rectal: no pain, no incontinence, no bleeding Musculoskeletal: no neck stiffness, no neck pain, no shooting arm pain Integumentary: no rash, no pruritis, no redness, no wounds, no jaundice, no boils Neurological: no head injury, no transient paralysis, no paralysis, no parathesias, no numbness, no seizures, no tremors Psychiatric: no anxiety, no memory loss, no sleep disturbances, no insomnia, no hypersomnia, no change in appetite, no change in libido, no suicidal ideation Endocrine: no cold intolerance, no heat intolerance, no excessive thirst, no polydipsia, no nocturia, no excessive sweating Hematologic/Lymphatic: no easy bruising, no easy bleeding, no lymphedema Allergic/Immunologic: no urticaria, no allergic rhinitis, no anaphylaxis Exam - Constitutional Vitals: Temp Pulse Resp BP Pulse Ox 97.3 F L 89 16 119/83 99 07/14/22 09:32 07/14/22 09:32 07/14/22 09:32 07/14/22 09:32 07/14/22 09:32 General appearance: Present: mild distress - EENT Eyes: Present: PERRL ENT: hearing intact, clear oral mucosa - Neck Neck: Present: supple, normal ROM - Respiratory Respiratory effort: normal Respiratory: bilateral: CTA - Cardiovascular Heart Sounds: Present: S1 & S2. Absent: rub, click - Extremities Extremities: pulses symmetrical, No edema Peripheral Pulses: within normal limits - Abdominal General gastrointestinal: Present: soft, tender, distended, normal bowel sounds Localized gastrointestinal: tender: diffuse Female genitourinary: Present: normal - Rectal Rectal Exam: normal exam-external/orifice - Integumentary Integumentary: Present: clear, warm, dry - Musculoskeletal Musculoskeletal: gait normal, strength equal bilaterally - Psychiatric Psychiatric: appropriate mood/affect, intact judgment & insight - Neurologic Neurologic: CNII-XII intact, moves all extremities Results - Labs CBC & Chem 7: 07/14/22 11:41 07/14/22 11:41 Labs: Abnormal lab results 07/14/22 07/14/22 Range/Units 11:41 11:41 WBC 14.4 H (4.5-11.0) K/mm3 RBC 5.31 H (3.65-5.03) M/mm3 MCV 66 L (79-97) fl MCH 20 L (28-32) pg RDW 17.7 H (13.2-15.2) % [place] # (Auto) 1.0 H (0.0-0.8) K/mm3 Seg Neutrophils % 78.5 H (40.0-70.0) % Seg Neutrophils # 11.3 H (1.8-7.7) K/mm3 Glucose 103 H (65-100) mg/dL Assessment and Plan - Patient Problems (1) Bowel obstruction Current Visit: Yes Status: Acute Qualifiers: Intestinal obstruction extent: partial Plan to address problem: Bowel rest, IV fluid resuscitation therapy, surgery team consulted, CT scan abdomen and pelvis, serial abdominal exam, pain control. Further care and evaluation as per surgical team. Nasogastric decompression as per surgical team recommendation. (2) SIRS (systemic inflammatory response syndrome) Current Visit: Yes Status: Acute Plan to address problem: CBC, repeat CBC in a.m., IV fluid resuscitation therapy, supportive care. Empiric IV antibiotic therapy x1 dose. (3) Colitis Current Visit: Yes Status: Acute Plan to address problem: Supportive care, IV steroid therapy, pain control. (4) Seizure disorder Current Visit: Yes Status: Acute Plan to address problem: Continue current therapy, no seizure activity at this time. (5) Abdominal pain Current Visit: No Status: Acute Qualifiers: Abdominal location: generalized Qualified Code(s): R10.84 - Generalized abdominal pain Plan to address problem: CT scan abdomen pelvis, surgery team consulted, serial abdominal exam, pain control. (6) Hypertension Current Visit: Yes Status: Acute Qualifiers: Hypertension type: primary hypertension Qualified Code(s): I10 - Essential (primary) hypertension Plan to address problem: Monitor blood pressure every shift, continue medical management. (7) Diabetes Current Visit: Yes Status: Acute Plan to address problem: Consistent carbohydrate diet, Accu-Chek, insulin protocol, hypoglycemia protocol. (8) DVT prophylaxis Current Visit: Yes Status: Acute Plan to address problem: SCDs to bilateral lower extremities while in bed (9) Advance care planning Current Visit: Yes Status: Acute Plan to address problem: Disease education data, care plan discussed, diagnosis discussed, prognosis discussed, patient is full code. Patient acknowledges understanding agreement w ith care plan, +30 minutes. (10) Preventative health care Current Visit: Yes Status: Acute Plan to address problem: Patient counseled regarding risk factor reduction, frequent small meals, outpatient follow-up with primary care physician for all age and risk factor appropriate screening test. +30 minutes.
[2022-07-14] MEDS ORDERED: BENZONATATE 200 MG PO PRN (19:24)
[2022-07-14] MEDS ORDERED: DEXTROSE 50% IN WATER (25GM) 50 ML SYRINGE IV PRN (19:25)
[2022-07-14] MEDS ORDERED: SODIUM CHLORIDE 0.9% 1000 ML 1,000 ML IV SCH (19:30)
[2022-07-14] MEDS ORDERED: BENZONATATE 100 MG CAP PO PRN (19:35)
[2022-07-14] MEDS: metroNIDAZOLE/NS 500 MG/100 ML 500 MG/100 ML BAG IV SCH (19:53)
[2022-07-14] MEDS: carBAMazepine 200 MG TAB PO SCH (19:53)
[2022-07-14] MEDS: methylPREDNISolone Sod Succinate 40 MG/1 ML INJ IV SCH (23:50)
[2022-07-14] MEDS: INSULIN LISPRO 100 UNIT/ML SUB-Q SCH (23:51)
[2022-07-15] MEDS: methylPREDNISolone Sod Succinate 40 MG/1 ML INJ IV SCH ×2 (05:42→15:00)
[2022-07-15] MEDS: metroNIDAZOLE/NS 500 MG/100 ML 500 MG/100 ML BAG IV SCH ×2 (05:42→12:25)
[2022-07-15 08:00] LABS: Hematocrit 34.3 % (30.3-42.9); Hemoglobin 11.3 gm/dl (10.1-14.3); Mean Corpuscular HGB Conc 33 % (30-34); Platelet Count 328 K/mm3 (140-440); Red Blood Count 5.24 M/mm3 (3.65-5.03); Red Cell Distribution Width 17.8 % (13.2-15.2)
[2022-07-15 08:03] LABS: Mean Corpuscular Volume 65 fl (79-97)
[2022-07-15 08:12] LABS: BUN/Creatinine Ratio 13; Blood Urea Nitrogen 10 mg/dL (7-17); Calcium 9.5 mg/dL (8.4-10.2); Hemolysis Index 0
[2022-07-15] MEDS: INSULIN LISPRO 100 UNIT/ML SUB-Q SCH ×3 (09:13→15:51)
[2022-07-15] MEDS: carBAMazepine 200 MG TAB PO SCH (09:15)
[2022-07-15] MEDS ORDERED: levETIRAcetam 750 MG in DEXTROSE 5% IN WATER 100 ML IV SCH (10:00)
[2022-07-15] MEDS ORDERED: D5W/0.9% NACL 1,000 ML IV SCH (10:00)
[2022-07-15] MEDS ORDERED: NON-FORMULARY EACH (Omeprazole [Omeprazole] 40 MG Capsule.Dr) PO SCH (10:00)
[2022-07-15] MEDS ORDERED: PANTOPRAZOLE 40 MG TAB PO SCH (10:00)
[2022-07-15] MEDS ORDERED: METOPROLOL SUCCINATE XL 25 MG TAB PO SCH (10:00)
[2022-07-15] MEDS ORDERED: METOPROLOL SUCCINATE 25 MG PO SCH (10:00)
[2022-07-15 12:33] VITALS: BP 119/72
--- NOTE | 2022-07-15 15:51 | Consultation ---
History of Present Illness Consult date: 07/15/22 Reason for consult: abdominal pain - History of present illness History of present illness: 57-year-old female admitted to the emergency room with a 4-day history of abdominal pain with nausea and vomiting. CT scan showed dilated small bowel loops with signs of enteritis and possible partial small bowel obstruction. Patient says that she was vomiting up until she got transferred to the floor after which she says she currently has minimal to no abdominal pain and no nausea. She had not passed any flatus at the time of this evaluation. ER was unable to pass an NG tube due to the patient's verbal history of having previous bilateral nares surgeries. Patient is begging for food. Patient says that she had a hysterectomy complicated by bowel injury requiring significant bowel surger In the past. Past History Past Medical History: diabetes, GERD, hypertension Past Surgical History: appendectomy, hysterectomy, bowel surgery, Other (Bilateral nares surgery) Social history: Family history: hypertension Medications and Allergies Allergies Allergy/AdvReac Type Severity Reaction Status Date / Time codeine Allergy Rash Verified 07/14/22 09:36 levofloxacin [From Levaquin] Allergy Hives Verified 07/14/22 09:36 Penicillins Allergy Rash Verified 07/14/22 09:36 phenytoin sodium Allergy Rash Verified 07/14/22 09:36 [From Dilantin] phenytoin sodium extended Allergy Rash Verified 07/14/22 09:36 [From Dilantin] Sulfa (Sulfonamide Allergy Rash Verified 07/14/22 09:36 Antibiotics) Home Medications Medication Instructions Recorded Confirmed Last Taken Type Metoprolol Succinate [Kapspargo 25 mg PO DAILY 08/30/19 07/15/22 08/29/19 History Sprinkle] Omeprazole 40 mg PO DAILY 08/30/19 07/15/22 08/29/19 History Meclizine [Antivert] 25 mg PO TID PRN #15 tablet 05/26/20 07/15/22 Unknown Rx Metformin HCl [metFORMIN] 1 tab PO BID 05/26/20 07/15/22 Unknown History Metoclopramide [Reglan] 10 mg PO Q6HR PRN #15 tab 05/26/20 07/15/22 Unknown Rx Nitrofurantoin [place]/M-Cryst 100 mg PO Q12HR #14 capsule 05/26/20 07/15/22 Unknown Rx [Macrobid CAP] carBAMazepine [Tegretol] 200 mg PO TID 05/26/20 07/15/22 Unknown History Meclizine [Antivert] 25 mg PO TID PRN #15 tablet 10/05/20 07/15/22 Unknown Rx Ondansetron [Zofran Odt] 4 mg PO Q8HR #8 tab.rapdis 06/15/21 07/15/22 Unknown Rx Benzonatate 200 mg PO TID PRN #30 cap 12/01/21 07/15/22 Unknown Rx Active Meds: Active Medications Acetaminophen (Acetaminophen 325 Mg Tab) 650 mg PO Q4H PRN PRN Reason: Pain MILD(1-3)/Fever >100.5/PAVON Last Admin: 07/14/22 21:03 Dose: 650 mg Albuterol (Albuterol 2.5 Mg/3 Ml Nebu) 2.5 mg IH Q4HRT PRN PRN Reason: Shortness Of Breath Benzonatate (Benzonatate 100 Mg Cap) 200 mg PO Q8HR PRN PRN Reason: Cough Dextrose (Dextrose 50% In Water (25gm) 50 Ml Syringe) 50 ml IV Q30MIN PRN; Protocol PRN Reason: Hypoglycemia Hydromorphone HCl (Hydromorphone 0.5 Mg/0.5 Ml Inj) 0.5 mg IV Q13H PRN PRN Reason: Pain , Severe (7-10) Last Admin: 07/15/22 06:18 Dose: 0.5 mg Sodium Chloride (Nacl 0.9% 1000 Ml) 1,000 mls @ 125 mls/hr IV DIRECT MAYA Last Admin: 07/15/22 01:21 Dose: 125 mls/hr Metronidazole (Flagyl 500 Mg/100 Ml) 500 mg in 100 mls @ 100 mls/hr IV Q8H MAYA; Protocol Last Admin: 07/15/22 12:25 Dose: 100 mls/hr Dextrose/Sodium Chloride (D5ns) 1,000 mls @ 100 mls/hr IV DIRECT MAYA Last Admin: 07/15/22 09:25 Dose: 100 mls/hr Levetiracetam 750 mg/ Dextrose 107.5 mls @ 400 mls/hr IV Q12HR MAYA Last Admin: 07/15/22 11:00 Dose: 400 mls/hr Insulin Human Lispro (Insulin Lispro 100 Unit/Ml) 0 unit SUB-Q ACHS [facility]; Protocol Last Admin: 07/15/22 12:19 Dose: Not Given Methylprednisolone Sodium Succinate (Methylprednisolone Sod Succinate 40 Mg/1 Ml Inj) 40 mg IV Q8HR [facility] Last Admin: 07/15/22 15:00 Dose: 40 mg Metoprolol Succinate (Metoprolol Succinate Xl 25 Mg Tab) 25 mg PO QDAY [facility] Last Admin: 07/15/22 09:13 Dose: Not Given Ondansetron HCl (Ondansetron 4 Mg/2 Ml Inj) 4 mg IV Q8H PRN PRN Reason: Nausea And Vomiting Pantoprazole Sodium (Pantoprazole 40 Mg Tab) 40 mg PO DAILY [facility] Last Admin: 07/15/22 09:14 Dose: Not Given Sodium Chloride (Sodium Chloride 0.9% 10 Ml Flush Syringe) 10 ml IV BID [facility] Last Admin: 07/15/22 09:14 Dose: Not Given Sodium Chloride (Sodium Chloride 0.9% 10 Ml Flush Syringe) 10 ml IV PRN PRN PRN Reason: LINE FLUSH Review of Systems All systems: negative - Gastrointestinal abdominal pain, nausea, vomiting Exam Vital Signs Temp Pulse Resp BP Pulse Ox 97.3 F L 89 16 119/83 99 07/14/22 09:32 07/14/22 09:32 07/14/22 09:32 07/14/22 09:32 07/14/22 09:32 - General physical appearance Positive: well developed, no distress, no pain - Eyes Positive: PERRL. Negative: icteric - ENT Positive: no hearing loss - Respiratory Positive: normal expansion, normal respiratory effort - Cardiovascular Heart Sounds: Present: S1 & S2 - Extremities Extremities: no ischemia - Abdomen Abdomen: Present: soft, distended. Absent: tender, guarding, rigid Results - Labs 07/15/22 07:31 07/15/22 07:31 Abnormal lab results 07/14/22 07/15/22 07/15/22 Range/Units 23:41 07:31 07:31 RBC 5.24 H (3.65-5.03) M/mm3 MCV 65 L (79-97) fl MCH 22 L (28-32) pg RDW 17.8 H (13.2-15.2) % Glucose 145 H (65-100) mg/dL POC Glucose 111 H (70-105) mg/dL 07/15/22 Range/Units 08:16 RBC (3.65-5.03) M/mm3 MCV (79-97) fl MCH (28-32) pg RDW (13.2-15.2) % Glucose (65-100) mg/dL POC Glucose 131 H (70-105) mg/dL Diabetes panel 07/15/22 Range/Units 07:31 Sodium 141 (137-145) mmol/L Potassium 4.3 (3.6-5.0) mmol/L Chloride 104.8 (98-107) mmol/L Carbon Dioxide 24 (22-30) mmol/L BUN 10 (7-17) mg/dL Creatinine 0.8 (0.6-1.2) mg/dL Glucose 145 H (65-100) mg/dL Calcium 9.5 (8.4-10.2) mg/dL Calcium panel 07/15/22 Range/Units 07:31 Calcium 9.5 (8.4-10.2) mg/dL Pituitary panel 07/15/22 Range/Units 07:31 Sodium 141 (137-145) mmol/L Potassium 4.3 (3.6-5.0) mmol/L Chloride 104.8 (98-107) mmol/L Carbon Dioxide 24 (22-30) mmol/L BUN 10 (7-17) mg/dL Creatinine 0.8 (0.6-1.2) mg/dL Glucose 145 H (65-100) mg/dL Calcium 9.5 (8.4-10.2) mg/dL Adrenal panel 07/15/22 Range/Units 07:31 Sodium 141 (137-145) mmol/L Potassium 4.3 (3.6-5.0) mmol/L Chloride 104.8 (98-107) mmol/L Carbon Dioxide 24 (22-30) mmol/L BUN 10 (7-17) mg/dL Creatinine 0.8 (0.6-1.2) mg/dL Glucose 145 H (65-100) mg/dL Calcium 9.5 (8.4-10.2) mg/dL - Imaging CT scan - abdomen: report reviewed, image reviewed CT scan - pelvis: report reviewed, image reviewed Assessment and Plan 57-year-old female admitted with abdominal pain nausea vomiting and CT scan imaging consistent for possible partial bowel obstruction possible enteritis. Patient is afebrile and stable with normalization of her white blood cell count. Patient symptoms have improved tremendously. Since his evaluation I ordered a plain abdominal film which is not officially read but does have some prominent isolated small bowel loops that I can appreciate. Patient says that since she has had the x-ray she started to pass a little bit of gas. Since patient was admitted with objective findings of partial small bowel obstruction, and there is no way to decompress this patient. Small bowel follow-through is ordered for tomorrow. If she passes contrast without obstruction and I feel confident that the obstruction is resolved and she can start p.o. diet and probably discharge. If the follow-through does show any signs of obstruction patient may need surgery as there is no way to decompress her to help relieve the construction conservatively. Patient pathology and treatment options were discussed with the patient who expressed understanding. will continue to follow.
--- NOTE | 2022-07-15 16:06 | Progress Note ---
Assessment and Plan (1) Bowel obstruction Current Visit: Yes Status: Acute Qualifiers: Intestinal obstruction extent: partial Plan to address problem: Bowel rest, IV fluid resuscitation therapy, surgery team consulted, CT scan abdomen and pelvis, serial abdominal exam, pain control. Further care and evaluation as per surgical team. Nasogastric decompression as per surgical team recommendation. (2) SIRS (systemic inflammatory response syndrome) Current Visit: Yes Status: Acute Plan to address problem: CBC, repeat CBC in a.m., IV fluid resuscitation therapy, supportive care. Empiric IV antibiotic therapy x1 dose. (3) Colitis Current Visit: Yes Status: Acute Plan to address problem: Supportive care, IV steroid therapy, pain control. (4) Seizure disorder Current Visit: Yes Status: Acute Plan to address problem: Continue current therapy, no seizure activity at this time. (5) Abdominal pain Current Visit: No Status: Acute Qualifiers: Abdominal location: generalized Qualified Code(s): R10.84 - Generalized abdominal pain Plan to address problem: CT scan abdomen pelvis, surgery team consulted, serial abdominal exam, pain control. (6) Hypertension Current Visit: Yes Status: Acute Qualifiers: Hypertension type: primary hypertension Qualified Code(s): I10 - Essential (primary) hypertension Plan to address problem: Monitor blood pressure every shift, continue medical management. (7) Diabetes Current Visit: Yes Status: Acute Plan to address problem: Consistent carbohydrate diet, Accu-Chek, insulin protocol, hypoglycemia protoc ol. (8) DVT prophylaxis Current Visit: Yes Status: Acute Plan to address problem: SCDs to bilateral lower extremities while in bed (9) Advance care planning Current Visit: Yes Status: Acute Plan to address problem: Disease education data, care plan discussed, diagnosis discussed, prognosis discussed, patient is full code. Patient acknowledges understanding agreement with care plan, +30 minutes. (10) Preventative health care Current Visit: Yes Status: Acute Plan to address problem: Patient counseled regarding risk factor reduction, frequent small meals, outpatient follow-up with primary care physician for all age and risk factor appropriate screening test. +30 minutes. Subjective Date of service: 07/15/22 Objective - Constitutional Vitals: Vital Signs - 12hr 07/15/22 07/15/22 05:41 11:52 Temperature 98.9 F 97.4 F L Pulse Rate 70 68 Respiratory 20 18 Rate Blood Pressure 124/83 119/72 O2 Sat by Pulse 96 97 Oximetry - Labs CBC & Chem 7: 07/15/22 07:31 07/15/22 07:31 Labs: Abnormal lab results 07/14/22 07/15/22 07/15/22 Range/Units 23:41 07:31 07:31 RBC 5.24 H (3.65-5.03) M/mm3 MCV 65 L (79-97) fl MCH 22 L (28-32) pg RDW 17.8 H (13.2-15.2) % Glucose 145 H (65-100) mg/dL POC Glucose 111 H (70-105) mg/dL 07/15/22 Range/Units 08:16 RBC (3.65-5.03) M/mm3 MCV (79-97) fl MCH (28-32) pg RDW (13.2-15.2) % Glucose (65-100) mg/dL POC Glucose 131 H (70-105) mg/dL
--- NOTE | 2022-07-15 16:09 | XRay Report ---
ABDOMEN 1 VIEW INDICATION / CLINICAL INFORMATION: f/u sbo. COMPARISON: CT from 07/14/2022. FINDINGS: TUBES / LINES: None. BOWEL GAS PATTERN: There is unchanged mild gaseous distention of the small bowel, primarily within th e left upper abdomen, measuring 3 cm in diameter. Distal small bowel loops are decompressed. Stool ma terial within the left abdomen may represent small bowel feces sign, as seen on prior study. FREE AIR / EXTRALUMINAL GAS: None. ADDITIONAL FINDINGS: No significant additional findings. IMPRESSION: No significant change in mild gas dilation of the small bowel. No free air. Signer Name: Renzo Sargent MD Signed: 07/15/2022 4:04 PM Workstation Name: [id number]
[2022-07-15 16:31] LABS: Basophils % (Manual) 0 % (0.0-1.8); Eosinophils % (Manual) 0 % (0.0-4.3); Total Cells Counted 100
[2022-07-15 16:32] LABS: Hypochromasia 2+
[2022-07-15 16:33] LABS: Platelet Estimate Consistent w Auto; Tear Drop Cells Few
== END 2022-07-15 16:22 | disposition left against medical advice (07) | DRG 389 ==
LOC: ED 09:17 → 3A 19:16
PROVIDERS: ADMIT Internal Medicine; ATTEND Internal Medicine
DX: K56.600 Partial intestinal obstruction, unspecified as to cause (principal); R65.10 Systemic inflammatory response syndrome (SIRS) of non-infectious origin without acute organ dysfunction; K52.9 Noninfective gastroenteritis and colitis, unspecified; I10 Essential (primary) hypertension; E11.9 Type 2 diabetes mellitus without complications; K21.9 Gastro-esophageal reflux disease without esophagitis; G40.909 Epilepsy, unspecified, not intractable, without status epilepticus; F32.A Depression, unspecified; Z88.6 Allergy status to analgesic agent; Z88.0 Allergy status to penicillin; Z88.8 Allergy status to other drugs, medicaments and biological substances; Z53.29 Procedure and treatment not carried out because of patient's decision for other reasons; Z86.73 Personal history of transient ischemic attack (TIA), and cerebral infarction without residual deficits; Z90.710 Acquired absence of both cervix and uterus; Z82.49 Family history of ischemic heart disease and other diseases of the circulatory system; Z79.84 Long term (current) use of oral hypoglycemic drugs; Z90.49 Acquired absence of other specified parts of digestive tract
CPT/HCPCS: 36415; 74018; 74177; 80048; 80076; 81001; 82962; 83690; 85007; 85025; G0378; J3490; J7060; J7517; J1170; J1200; J1953; J2405; J2920; J7030; J7042; Q9967

== ENCOUNTER 2022-07-24 11:26 | Outpatient (CLI) | payer MEDICAID ==
[2022-07-24 12:14] LABS: Basophils # (Auto) 0.1 K/mm3 (0.0-0.1); Basophils % (Auto) 0.8 % (0.0-1.8); Eosinophils # (Auto) 0.1 K/mm3 (0.0-0.4); Lymphocytes # (Auto) 2.7 K/mm3 (1.2-5.4); Lymphocytes % (Auto) 26.3 % (13.4-35.0); Mean Corpuscular HGB Conc 32 % (30-34); Monocytes # (Auto) 0.8 K/mm3 (0.0-0.8); Platelet Count 364 K/mm3 (140-440)
[2022-07-24 12:27] LABS: Mean Corpuscular Volume 66 fl (79-97)
[2022-07-24 12:34] LABS: Alanine Aminotransferase 14 units/L (7-56); Albumin 4.3 g/dL (3.9-5); BUN/Creatinine Ratio 14; Blood Urea Nitrogen 11 mg/dL (7-17); Calcium 9.2 mg/dL (8.4-10.2); HDL Cholesterol 54 mg/dL (40-59); Hemolysis Index 6; Iron 15 ug/dL (37-170); LDL Cholesterol,Direct 93 mg/dL (50-130)
[2022-07-27 13:29] LABS: Vitamin D, 25-OH, D2 <4 ng/mL
== END 2022-07-24 11:27 | disposition home or self-care (01) ==
LOC: LAB 11:26
PROVIDERS: ATTEND Internal Medicine
DX: Z00.00 Encounter for general adult medical examination without abnormal findings (principal); B18.2 Chronic viral hepatitis C; D50.9 Iron deficiency anemia, unspecified; E11.65 Type 2 diabetes mellitus with hyperglycemia; R53.83 Other fatigue; E55.9 Vitamin D deficiency, unspecified; E78.5 Hyperlipidemia, unspecified; D30.9 Benign neoplasm of urinary organ, unspecified
CPT/HCPCS: 36415; 80053; 80061; 82306; 82728; 83036; 83540; 84443; 85025